=== PATIENT | female | born 1980 | race Caucasian/White ===

== ENCOUNTER 2021-11-16 09:51 | Emergency (ER) | payer OTHER, SELFPAY ==
[2021-11-16 10:15] VITALS: BP 99/53; PULSE 70; RESP 16; TEMP 36.1; O2SAT 99; BMI 25.1
--- NOTE | 2021-11-16 10:27 | ED_ITS ---
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 No fevers, chills. Patient reports she uses clean needles but does lick the needles prior to injection. She is on methadone. Related Data Previous Rx's Medication Instructions Recorded cephalexin 500 mg capsule 500 mg PO TID #21 cap 11/16/21 doxycycline monohydrate 100 mg 100 mg PO BID #20 tab 11/16/21 tablet ibuprofen 800 mg tablet 800 mg PO Q8H PRN #20 tab 11/16/21 Allergies Allergy/AdvReac Type Severity Reaction Status Date / Time No Known Allergies Allergy Unverified 06/21/20 15:38 Review of Systems Review of Systems: Yes all other systems are reviewed and are negative Constitutional: Constitutional: Reports no additional constitutional complaints, Denies body ache(s), Denies chills, Denies fever(s), Denies headache(s) and Denies weakness Eyes: Eyes: Reports no additional eye complaints and Denies change in vision ENT: Reports system reviewed and no additional complaints, except as documented, Denies dizziness, Denies headache(s), Denies nasal congestion, Denie s nasal discharge and Denies neck pain Cardiovascular: Cardiovascular: Reports no additional cardiovascular complaints, Denies chest pain, Denies leg edema and Denies dyspnea Respiratory: Respiratory: Reports no additional respiratory complaints, Denies cough and Denies dyspnea Gastrointestinal: Gastrointestinal: Reports no additional gastrointestinal complaints, Denies abdominal pain, Denies diarrhea, Denies nausea and Denies vomiting Genitourinary: Genitourinary: Reports no additional female genitourinary complaints and Denies urinary incontinence Musculoskeletal: Musculoskeletal: Reports no additional musculoskeletal co mplaints, Denies back pain, Denies arthralgias, Denies joint swelling, Denies neck pain, Denies numbness and Denies tingling Integumentary/Breasts: Skin/Breast: Reports system reviewed and no additional complaints, except as docu, Reports erythema and Denies rash Neurologic: Reports system reviewed and no additional complaints, except as documented, Denies Abnormal speech present, Denies dizziness, Denies headach e(s), Denies numbness, Denies tingling and Denies weakness PMFSH Past Medical History Attestation statement: The following information was validated with the patient. Source: old records reviewed and nursing notes reviewed Social History Social History Advance Directives: No Advance Directives Information Provided: Yes Patient : No Physical Exam Vital Signs: Vital Signs: Last Vital Signs Temp 97 F 11/16/21 10:15 Pulse 70 11/16/21 10:15 Resp 16 11/16/21 10:15 BP 99/53 L 11/16/21 10:15 Pulse Ox 99 11/16/21 10:15 BMI result Body Mass Index 25.1 Const: General: cooperative, healthy appearing, comfortable and no acute distress Orientation/consciousness: patient oriented x3 Limitations: no limitations HENMT: Head: Yes normal to inspection Ears: hearing grossly normal bilaterally General nose exam: Normal external nose present Face and sinus: Yes normal facial exam Mouth: Normal oral and palatal mucosa present Throat: Yes posterior oropharynx normal Eyes: General: appearance normal, both eyes and all related structures Pupils: Equal, round and reactive pupils present Neck: Neck: Yes normal visual inspection Chest: Chest palpation & inspection: normal inspection of the chest Resp: Effort & Inspection: normal respiratory effort Auscultation: clear to auscultation bilaterally Cardio: Rate: regular rate Rhythm: regular rhythm Peripheral pulses: Per ipheral pulses 2+ throughout GI: Inspection: Yes normal to inspection Palpation (GI): Soft to palpation and nontender Auscultation: normal bowel sounds Back/Spine/Pelvis: Thoracic/Lumbar Spine: thoracic and lumbar spine normal to inspection Skin: General skin exam: no rashes or lesions noted Neuro: General: patient oriented x3, no focal motor deficits and normal sensation to monofilament Cranial nerves: Yes Equal, round and reactive pupils present Cognition (Neuro): normal cognition Speech: No Abnormal speech present Gait exam (Neuro): Normal gait present Motor exam (neuro): 5/5 motor strength present throughout Extrem: General: Yes normal to inspection Elbow/forearm/wrist images: 1. Circular area of redness, warmth and induration with no fluctuance. NO flucutance Course Course Course Narrative: 41 yo female here with area to the right thigh of redness, warmth and pain x 1 week after injecting cocaine/heroin to the site. No drainable fluid collection. Does appear to have cellulitis which is not circumferential. No fevers, chills, vomiting, systemic symptoms. Area was marked with skin marker. Will start patient on antibiotics, recommend warm compresses and to return for any fever, vomiting, malaise, extension of cellulitis. Comfortable with plan for discharge home. . MDM - Wound/Laceration Medical Records Attestation: I reviewed the patient's medical records. Lab Data Attestation: I reviewed the patient's lab results. Discharge Plan Discharge Clinical Impression: Cellulitis Patient Disposition: Home, Self-Care Instructions: Cellulitis (DC), Warm Compress or Soak (ED) Additional Instructions: Return for fever, vomiting, malaise, increasing redness/warmth or fluctuance of the wound Prescriptions: New doxycycline monohydrate 100 mg tablet 100 mg PO BID Qty: 20 0RF cephalexin 500 mg capsule 500 mg PO TID Qty: 21 0RF ibuprofen 800 mg tablet 800 mg PO Q8H PRN (Reason: pain) Qty: 20 0RF Referrals: Physician,Unknown J [Primary Care Provider] - 2 days Stand Alone Forms: Work/School Release Interventions: ED Discharge Assessment Last Done: 11/16/21 11:02 Discharge Date/Time: 11/16/21 11:02
== END 2021-11-16 11:02 | disposition home or self-care (01) ==
PROVIDERS: Emergency Provider Emergency Medicine Emergency Medical Services
DX: L03.115 Cellulitis of right lower limb (principal); M79.651 Pain in right thigh; F11.20 Opioid dependence, uncomplicated; F19.90 Other psychoactive substance use, unspecified, uncomplicated
CPT/HCPCS: 99283

== ENCOUNTER 2021-11-25 07:24 | Emergency (ER) | payer OTHER, SELFPAY ==
[2021-11-25 08:13] VITALS: BP 130/91; PULSE 72; RESP 18; TEMP 36.4; O2SAT 97; BMI 27.6
--- NOTE | 2021-11-25 08:20 | ED.WOUNDLAC ---
HPI - Wound/Laceration General Chief Complaint: Wound/Laceration Stated Complaint: cellulitis leg pain Time Seen by Provider: 11/25/21 08:20 Source: patient Mode of arrival: ambulatory Limitations: no limitations History of Present Illness HPI narrative: seen on 11/16 started on doxy and cephalexin for R leg cellulitis doing well other than has abscess in the area that is not resolving, no fevers Onset (ago): week(s) (2) Extremity Location: right: thigh Place: home Patient tetanus UTD: Yes Context: other (injected into r thigh ) Associated symptoms: pain Treatments prior to arrival: other (completed course of cephalexin/doxycycline) Related Data Previous Rx's Medication Instructions Recorded cephalexin 500 mg capsule 500 mg PO TID #21 cap 11/16/21 doxycycline monohydrate 100 mg 100 mg PO BID #20 tab 11/16/21 tablet ibuprofen 800 mg tablet 800 mg PO Q8H PRN #20 tab 11/16/21 doxycycline monohydrate 100 mg 100 mg PO BID 7 Days #14 tab 11/25/21 tablet famotidine 20 mg tablet (Pepcid) 20 mg PO DAILY PRN #30 tab 11/25/21 ondansetron 4 mg disintegrating 4 mg PO Q8H PRN #20 tab 11/25/21 tablet Allergies Allergy/AdvReac Type Severity Reaction Status Date / Time No Known Allergies Allergy Unverified 06/21/20 15:38 Review of Systems Review of Systems: Constitutional : No Fever, No Chills ENT/Mouth : No sore throat, No Rhinorrhea Eyes: No Eye Pain, No Swelling, No Redness Cardiovascular : No Chest Pain, No SOB Respiratory : No Cough, No Sputum Gastrointestinal : No Nausea, No Vomiting, No Diarrhea, No abdominal Pain Genitourinary : No Dysuria, No Hematuria Musculoskeletal : No joint pain, No Myalgias, No Joint Swelling Skin : pos Skin Lesions, positive skin rash Neuro : No Weakness, No Numbness, No Headache Psych : No Anxiety, No Depression Heme/Lymph: No Bruising, No Bleeding,No Lymphadenopathy Endocrine : No Polyuria, No Polydipsia All other systems reviewed and are negative [facility] Past Medical History Attestation statement: The following information was validated with the patient. Medical History Cellulitis Social History Social History (Updated 11/25/21 @ 08:36 by Melba Singh DO) Patient Tobacco Use Status: Tobacco use Unknown Substance Use Type: Heroin Advance Directives: No Advance Directives Information Provided: No Patient : No Physical Exam Vital Signs: Vital Signs: Last Vital Signs Temp 97.6 F 11/25/21 08:13 Pulse 72 11/25/21 08:13 Resp 18 11/25/21 08:13 BP 130/91 H 11/25/21 08:13 Pulse Ox 97 11/25/21 08:13 BMI result Body Mass Index 27.6 Appearance: Alert. Oriented X3. No acute distress. Eyes: Pupils equal, round and reactive to light. ENT: Pharynx normal. Neck: Normal inspection. Neck supple. CVS: Normal heart rate and rhythm. Pulses normal. Respiratory: No respiratory distress. Breath sounds normal. Abdomen: Soft and nontender. Skin: Skin warm and dry. Normal skin color. Normal skin turgor. Extremities: No lower extremity edema. R inner thigh - 4cm abscess noted to a point very mild surrounding erythema no lymphangitis no edema or swelling distally Neuro: Oriented X 3. No motor deficit. No sensory deficit. Course Course Course Narrative: did well post procedure - I/D performed by Lanie BOWEN at bedside MDM - Wound/Laceration MDM Narrative Medical decision making narrative: 41 yo female with R thigh abscess recent treatment for cellulitis did well but now needs I/D suspect she will do well after expression of purulence. No systemic symptoms no signs of deeper space infection. Leg is not swollen. I/D planned then possibly doxycycline for additional 7 days until fully cleared Procedures Abscess I/D Site: lower extremity Side (if applicable): right Local Anesthetic: lidocaine 1% and other anesthetic (LMX) Amount of anesthesia used (mL): 5 Technique: incised with blade Amount of fluid expressed (mL): 10 Sent for culture/gram staining?: No Irrigation: Yes Packing used?: iodoform Discharge Plan Discharge Clinical Impression: Abscess Patient Disposition: Home, Self-Care Instructions: Abscess (ED), Incision and Drainage (ED) Additional Instructions: follow up in ED 2 days for wound check okay to shower - keep clean covered and dry - in shower please try to keep as dry as possible and cover with dressing monitor for fevers, worsening redness, or any other concerns pepcid and zofran are if the doxycycline cause abdominal discomfort Prescriptions: New famotidine [Pepcid] 20 mg tablet 20 mg PO DAILY PRN (Reason: abdominal discomfort) Qty: 30 0RF doxycycline monohydrate 100 mg tablet 100 mg PO BID 7 Days Qty: 14 0RF ondansetron 4 mg tablet,disintegrating 4 mg PO Q8H PRN (Reason: nausea and vomiting) Qty: 20 0RF No Action doxycycline monohydrate 100 mg tablet 100 mg PO BID Qty: 20 0RF cephalexin 500 mg capsule 500 mg PO TID Qty: 21 0RF ibuprofen 800 mg tablet 800 mg PO Q8H PRN (Reason: pain) Qty: 20 0RF Stand Alone Forms: Work/School Release
[2021-11-25] MEDS: Lidocaine HCl 1 % 20 ML VIAL SUBCUT (08:37)
[2021-11-25] MEDS: Lidocaine 4 % Cream KIT 1 APPL TOPICAL (08:37)
== END 2021-11-25 09:50 | disposition home or self-care (01) ==
PROVIDERS: Emergency Provider Emergency Medicine; PCP Nurse Practitioner Family
DX: L02.415 Cutaneous abscess of right lower limb (principal); L03.115 Cellulitis of right lower limb; F11.10 Opioid abuse, uncomplicated; Z79.899 Other long term (current) drug therapy
CPT/HCPCS: 10060; 99283; 99284

== ENCOUNTER 2021-11-27 09:02 | Emergency (ER) | payer OTHER, SELFPAY ==
[2021-11-27 09:10] VITALS: BP 132/81; PULSE 71; RESP 17; TEMP 36.1; O2SAT 98; BMI 27.1
--- NOTE | 2021-11-27 09:49 | ED_ITS ---
HPI - Recheck/Abnormal Lab/Rx General Chief Complaint: Wound/Laceration Stated Complaint: Wound check Time Seen by Provider: 11/27/21 09:35 Source: patient Mode of arrival: ambulatory Limitations: no limitations History of Present Illness HPI narrative: 41-year-old female presenting to the ED for a wound check after she was seen here on 11/16/2021 for cellulitis sent home on doxycycline and Keflex and reports she did not start antibiotics until 2 days later then was seen here again on 11/25/2021 for worsening swelling/pain and purulent drainage and at that point there was an abscess that she needed I&D then she was placed on another 7 days of doxycycline which she reports is taking as prescribed. At this time she reports that her symptoms have improved and she believes that the redness and swelling and pain is improving not worsening from her being on the antibiotics. She denies any fevers, chills or any worsening symptoms. MD complaint: wound re-check Initial visit for: cellulitis and abscess Returns today for: wound recheck and cellulitis follow-up Symptoms since prior visit: improved (For patient) Context: planned re-check Associated symptoms: none Treatments prior to arrival: other (See above) Related Data Previous Rx's Medication Instructions Recorded cephalexin 500 mg capsule 500 mg PO TID #21 cap 11/16/21 doxycycline monohydrate 100 mg 100 mg PO BID #20 tab 11/16/21 tablet ibuprofen 800 mg tablet 800 mg PO Q8H PRN #20 tab 11/16/21 doxycycline monohydrate 100 mg 100 mg PO BID 7 Days #14 tab 11/25/21 tablet famotidine 20 mg tablet (Pepcid) 20 mg PO DAILY PRN #30 tab 11/25/21 ondansetron 4 mg disintegrating 4 mg PO Q8H PRN #20 tab 11/25/21 tablet acetaminophen 500 mg tablet 1,000 mg PO QID PRN #14 tab 11/27/21 (Tylenol Extra Strength) cephalexin 500 mg capsule 500 mg PO Q6H 10 Days #40 cap 11/27/21 fluconazole 150 mg tablet 150 mg PO Q3D #2 tab 11/27/21 (Diflucan) ibuprofen 800 mg tablet 800 mg PO Q8H PRN #14 tab 11/27/21 sulfamethoxazole 800 1 tab PO BID 10 Days #20 tab 11/27/21 mg-trimethoprim 160 mg tablet (Bactrim DS) Allergies Allergy/AdvReac Type Severity Reaction Status Date / Time No Known Allergies Allergy Verified 11/27/21 09:12 Review of Systems Review of Systems: Constitutional : Denies history of same, Denies any other sites involved, Denies IV drug use, Denies history of MRSA, Denies swollen glands, Denies injury, Denies Fever, Denies Chills, + Sig Pain, Denies Systemic symptoms Cardiovascular : No Chest Pain, No SOB Respiratory : No Dyspnea Gastrointestinal : No abdominal pain Musculoskeletal : No Joint Swelling Skin : + wound with surrounding erythema, No skin abscess, No Foreign bodies, Denies bites, Denies discharge, Neuro : No Weakness, No Numbness/tingling Psych : No SI/HI/thoughts of self injury Yes all other systems are reviewed and are negative [facility] Past Medical History Attestation statement: The following information was validated with the patient. Medical History Cellulitis Social History Social History Patient Tobacco Use Status: Tobacco use Unknown Substance Use Type: Heroin Advance Directives: No Advance Directives Information Provided: No Patient : No Physical Exam Vital Signs: Vital Signs: Last Vital Signs Temp 97.0 F 11/27/21 09:10 Pulse 71 11/27/21 09:10 Resp 17 11/27/21 09:10 BP 132/81 11/27/21 09:10 Pulse Ox 98 11/27/21 09:10 BMI result Body Mass Index 27.1 vital signs have been reviewed as normal and appeared to be correct. Blood pressure normal Heart rate normal. Respiration rate normal. Temperature normal. Oxygen saturation normal. Appearance: Alert. Oriented X3. No acute distress. Head: Normal external exam. Normocephalic. Atraumatic. Eyes: PERRLA. EOMI. Conjunctiva and sclera normal. Eyelids normal. ENT: Pharynx normal. Uvula midline. Moist mucous membranes. Neck: Normal inspection. Neck supple. FROM. CVS: Normal heart rate and rhythm. Respiratory: No respiratory distress. Painless inspiration. Skin: Skin warm and dry. Normal skin color. Normal skin turgor. To the right inner thigh patient has a wound with moderate tenderness to palpation and surrounding erythema although patient reports it is improved when compared to her last 2 visits here. No streaking noted on my exam. No additional rashes/lesions/lacerations noted. Extremities: No lower extremity edema. No calf tenderness is noted. Otherwise all other extremities exhibit normal range of motion. Extremities nontender. Neuro: Oriented X 3. No motor deficit. No sensory deficit. Reflexes normal. Normal steady gait. No focal neuro deficits noted. Vascular: + radial pulses/+ 2 distal pedal pulses/+2 dorsalis pedis b/l. Normal cap refill. No cyanosis noted to upper extremity nails and lower extremity toes nails. Course Course Course Narrative: 41-year-old female who is currently on methadone presenting to the ED with request for wound check after she was seen here twice on 11/16/2021 sent home with doxycycline and Keflex prescribed although started 2 days after she was prescribed antibiotics. Then she was seen here on 11/25/2021 because she developed an abscess and she had incision and drainage with moderate purulent drainage which she tolerated procedure well. She was given another 7 day course of doxycycline. Today she reports her symptoms improve although on my exam she has significant pain and moderate surrounding cellulitis therefore I offered labs and IV antibiotics and admission although patient does not want to stay today she showed me pictures and she reports that she believes it is much better. Therefore I discussed this with Dr. Lara. I explained to the patient that she should stay for labs and IV antibiotics and admission although she is very adamant she wants to be discharged. Therefore at this time I explained to her that we will start her on another course of Keflex that she will start today and to finish her doxycycline prescription then once she is finished with the doxycycline prescription she will finish the Bactrim. And I explained to her that she needs to return if any new or worsening symptoms and follow-up with the wound clinic as well. Will also give her Diflucan to prevent yeast infection. Patient understands that if she returns for a 4th time she will need to plan for IV antibiotics and admission. MDM - Recheck/Abnormal Lab/Rx Medical Records Attestation: I reviewed the patient's medical records. Discharge Plan Discharge Clinical Impression: Cellulitis of right thigh Patient Disposition: Home, Self-Care Instructions: Cellulitis (ED) Additional Instructions: You are off for admission today for IV antibiotics although you reported that you believe your symptoms are improving therefore at this time want her to f inish her doxycycline prescription. And I want you to start Keflex today. Once he finished the doxycycline completely I want to start Bactrim for 10 days. Return if any new or worsening symptoms and I explained today if you do return for a 4th time at that point you should think about admission okay return if any new or worsening symptoms. Follow up with the wound clinic and your primary care provider. Prescriptions: New cephalexin 500 mg capsule 500 mg PO Q6H 10 Days Qty: 40 0RF sulfamethoxazole-trimethoprim [Bactrim DS] 800-160 mg tablet 1 tab PO BID 10 Days Qty: 20 0RF acetaminophen [Tylenol Extra Strength] 500 mg tablet 1,000 mg PO QID PRN (Reason: fever or pain) Qty: 14 0RF ibuprofen 800 mg tablet 800 mg PO Q8H PRN (Reason: pain) Qty: 14 0RF fluconazole [Diflucan] 150 mg tablet 150 mg PO Q3D Qty: 2 0RF No Action doxycycline monohydrate 100 mg tablet 100 mg PO BID Qty: 20 0RF cephalexin 500 mg capsule 500 mg PO TID Qty: 21 0RF ibuprofen 800 mg tablet 800 mg PO Q8H PRN (Reason: pain) Qty: 20 0RF famotidine [Pepcid] 20 mg tablet 20 mg PO DAILY PRN (Reason: abdominal discomfort) Qty: 30 0RF doxycycline monohydrate 100 mg tablet 100 mg PO BID 7 Days Qty: 14 0RF ondansetron 4 mg tablet,disintegrating 4 mg PO Q8H PRN (Reason: nausea and vomiting) Qty: 20 0RF Referrals: [facility] – [place] Wound Care Management [Provider Group] - 2 days Stand Alone Forms: Work/School Release Print Language: Citizen Of [place]
[2021-11-27] MEDS: Ibuprofen 800 MG TABLET PO (09:55)
[2021-11-27] MEDS: cephALEXin 500 MG CAPSULE PO (09:55)
[2021-11-27] MEDS: Acetaminophen 325 MG TABLET 975 MG PO (09:55)
== END 2021-11-27 10:15 | disposition home or self-care (01) ==
PROVIDERS: Emergency Provider Emergency Medicine
DX: L03.115 Cellulitis of right lower limb (principal); F11.20 Opioid dependence, uncomplicated
CPT/HCPCS: 99283

== ENCOUNTER → 2021-12-26 10:30 | Outpatient (REF) | payer OTHER, SELFPAY ==
--- NOTE | 2021-12-26 10:37 | ECG_ITS ---
Test Reason : METHADONE QT PROLONGATION Blood Pressure : / mmHG Vent. Rate : 075 BPM Atrial Rate : 075 BPM P-R Int : 152 ms QRS Dur : 084 ms QT Int : 406 ms P-R-T Axes : 054 055 039 degrees QTc Int : 453 ms Normal sinus rhythm Normal ECG No previous ECGs available Referred By: Araseli Smith Electronically Signed By:ANTONY BURNETT MD
== END ==
LOC: HO.CARD 10:30
PROVIDERS: Visit Provider Family Medicine
DX: Z79.899 Other long term (current) drug therapy (principal)
CPT/HCPCS: 93005

== ENCOUNTER 2022-01-20 08:10 | Emergency (ER) | payer OTHER, SELFPAY ==
--- NOTE | ~2022-01-20 | XR_ITS ---
EXAMINATION: XR THORACIC SPINE CLINICAL INFORMATION: Status post fall. Pain mid thoracic spine. COMPARISON: None TECHNIQUE: 3 views of the thoracic spine were obtained. FINDINGS: There is normal thoracic kyphosis. The vertebral heights and alignment is normal. There is mild levoscoliosis. There is no visible acute fracture, dislocation or lytic process seen. The paravertebral soft tissues are normal. XR/XR thoracic spine 3V IMPRESSION: Mild levoscoliosis of dorsal spine. No visible acute fracture or dislocation seen.
[2022-01-20 08:29] VITALS: BP 111/68; PULSE 71; RESP 18; TEMP 36.3; O2SAT 96; BMI 27.6
--- NOTE | 2022-01-20 10:18 | ED_ITS ---
HPI - Fall General Chief Complaint: Fall Stated Complaint: Fall at work Time Seen by Provider: 01/20/22 09:11 Source: patient Mode of arrival: ambulatory Limitations: no limitations History of Present Illness HPI Narrative: 41-year-old female presenting to the ED with complaints of mid back pain after she had a mechanical fall at work on were there was a lot a water and she was walking fast trying to get things done and she slipped and fell landing on her back. She denies head injury loss of consciousness. She denies being on any blood thinners. She denies any neck pain or lower back pain. She denies any extremity pain or joint pain or any joint swelling. She denies any paresthesias or any other symptoms complaints or concerns at this time. complaint: fall Onset (ago): day(s) (4) Fall from: standing Place fall occurred: work Loss of consciousness: none Prolonged down time: no Symptoms prior to fall: none Context: tripped/slipped Location of injury: back Severity: mild Quality: aching Associated symptoms (after fall): denies Related Data Previous Rx's Medication Instructions Recorded cephalexin 500 mg capsule 500 mg PO TID #21 cap 11/16/21 doxycycline monohydrate 100 mg 100 mg PO BID #20 tab 11/16/21 tablet ibuprofen 800 mg tablet 800 mg PO Q8H PRN #20 tab 11/16/21 doxycycline monohydrate 100 mg 100 mg PO BID 7 Days #14 tab 11/25/21 tablet famotidine 20 mg tablet (Pepcid) 20 mg PO DAILY PRN #30 tab 11/25/21 ondansetron 4 mg disintegrating 4 mg PO Q8H PRN #20 tab 11/25/21 tablet acetaminophen 500 mg tablet 1,000 mg PO QID PRN #14 tab 11/27/21 (Tylenol Extra Strength) cephalexin 500 mg capsule 500 mg PO Q6H 10 Days #40 cap 11/27/21 fluconazole 150 mg tablet 150 mg PO Q3D #2 tab 11/27/21 (Diflucan) ibuprofen 800 mg tablet 800 mg PO Q8H PRN #14 tab 11/27/21 sulfamethoxazole 800 1 tab PO BID 10 Days #20 tab 11/27/21 mg-trimethoprim 160 mg tablet (Bactrim DS) acetaminophen 500 mg tablet 1,000 mg PO QID PRN #14 tab 01/20/22 (Tylenol Extra Strength) cyclobenzaprine 10 mg tablet 10 mg PO Q8H PRN #14 tab 01/20/22 Allergies Allergy/AdvReac Type Severity Reaction Status Date / Time No Known Allergies Allergy Verified 01/20/22 08:29 Review of Systems Review of Systems: Constitutional : No trauma, No Weight loss, No Fever, No Chills, ENT/Mouth : No Hearing loss, No Ear Pain, No Nasal Congestion, No Sinus Pain, No Hoarseness, No sore throat, No Rhinorrhea, No Swallowing Difficulty Cardiovascular : No Chest Pain, No SOB Respiratory : No Cough, No Dyspnea Gastrointestinal : No Nausea, No Vomiting, No Diarrhea, No abdominal Pain, No Hematochezia, No Melena Genitourinary : No Dysuria, No Urinary Frequency, No Hematuria, No Urinary or Bowel Incontinence/retention Musculoskeletal : + Back pain, No neck pain, No joint stiffness, No joint swelling Skin : No Skin Lesions, No rash or signs of infection Neuro : No Weakness, No radiation, No Numbness, No Paresthesias, No headache, no loss of bowel or bladder incontinence, no saddle anesthesia, Focal weakness, No radiation Denies history of IV drug usage. Yes all other systems are reviewed and are negative [facility] Past Medical History Attestation statement: The following information was validated with the patient. Medical History Cellulitis Substance abuse in remission Social History Social History Patient Tobacco Use Status: Tobacco use Unknown Substance Use Type: Heroin Advance Directives: No Advance Directives Information Provided: No Patient : No Physical Exam Vital Signs: Vital Signs: Last Vital Signs Temp 97.4 F 01/20/22 08:29 Pulse 71 01/20/22 08:29 Resp 18 01/20/22 08:29 BP 111/68 01/20/22 08:29 Pulse Ox 96 01/20/22 08:29 BMI result Body Mass Index 27.6 vital signs have been reviewed as normal and appeared to be correct. Blood pressure normal. Heart rate normal. Respiration rate normal. Temperature normal. Oxygen saturation normal. Appearance: Alert. Oriented X3. No acute distress. Head: Normal external exam. Normocephalic. Atraumatic. No Dominique signs noted. No raccoon eyes noted Eyes: PERRLA. EOMI. Conjunctiva and sclera normal. Eyelids normal. ENT: EAC normal. TM's Normal. Pharynx normal. Uvula midline. Moist mucous me mbranes. No trismus noted. No drooling noted. No muffled voice noted. Neck: Normal inspection. Neck supple. FROM. No adenopathy. Thyroid Normal. No meningeal signs. No neck mass noted. CVS: Normal heart rate and rhythm. Heart sound normal. No murmurs noted. Pulses normal throughout. Respiratory: No respiratory distress. Painless inspiration. Breath sounds normal. No wheezes/rales/rhonchi noted. Chest nontender. No accessory muscle usage noted or decreased air movement noted. Abdomen: Soft and nontender. Bowel sounds normal in all 4 quadrants. No distention noted. No organomegaly noted. No visible injury noted. Back: No CVA tenderness. Full range of motion noted. No obvious deformities, or edema. Mild para-spinal muscular tenderness at thoracic and midthoracic region. No lumbar or coccyx pain noted. Full ROM in back and lower extremities. 5/5 strength hip extension/flexion, abduction, adduction. Straight leg raise test negative on right; Straight leg raise test negative on left; Reflexes normal ankle and knee bilaterally; EHL motor strength normal bilaterally. No rashes/lesion/induration/fluctuance or signs infection noted. No signs of trauma. No bruising noted. No abrasions/lacerations noted. Skin: Skin warm and dry. Normal skin color. Normal skin turgor. No rashes/lesions/lacerations noted. Extremities: No lower extremity edema. Extremities exhibit normal range of motion. Extremities nontender. Neuro: Oriented X 3. No motor deficit. No sensory deficit. Reflexes normal. Patient has a normal steady gait. Course Course Course Narrative: Pt c likely muscular pain, but could be herniated disc. Neuro exam shows no deficits. Not c/w AAA/epidural abscess/dissection.No high risk Hx (Incont, fever, immunosupp, recent surgery/LP, coag, signif trauma, wt loss, puls mass, hx/o Ca, TB, or IVDU) to warrant MRI/CT today. Not c/w Pyelo/UTI/kidney stone. Not cauda equina syndrome. Although I did obtain an x-ray due to a mechanical fall at work and was negative not consistent with a fracture. Will DC home with symptomatic treatment instructions return if any new or worsening symptoms. Patient understands and agrees with this plan. MDM - Fall Medical Records Attestation: I reviewed the patient's medical records. Imaging Data Thoracic spine x-ray: Attestation: I personally reviewed and interpreted this imaging study as follows: Radiologist's impression: FINDINGS: There is normal thoracic kyphosis. The vertebral heights and alignment is normal. There is mild levoscoliosis. There is no visible acute fracture, dislocation or lytic process seen. The paravertebral soft tissues are normal. XR/XR thoracic spine 3V IMPRESSION: Mild levoscoliosis of dorsal spine. No visible acute fracture or dislocation seen. Discharge Plan Discharge Clinical Impression: Fall, Strain of thoracic region, Work related injury Patient Disposition: Home, Self-Care Prescriptions: New acetaminophen [Tylenol Extra Strength] 500 mg tablet 1,000 mg PO QID PRN (Reason: fever or pain) Qty: 14 0RF cyclobenzaprine 10 mg tablet 10 mg PO Q8H PRN (Reason: Muscle spasm) Qty: 14 0RF No Action doxycycline monohydrate 100 mg tablet 100 mg PO BID Qty: 20 0RF cephalexin 500 mg capsule 500 mg PO TID Qty: 21 0RF ibuprofen 800 mg tablet 800 mg PO Q8H PRN (Reason: pain) Qty: 20 0RF famotidine [Pepcid] 20 mg tablet 20 mg PO DAILY PRN (Reason: abdominal discomfort) Qty: 30 0RF doxycycline monohydrate 100 mg tablet 100 mg PO BID 7 Days Qty: 14 0RF ondansetron 4 mg tablet,disintegrating 4 mg PO Q8H PRN (Reason: nausea and vomiting) Qty: 20 0RF cephalexin 500 mg capsule 500 mg PO Q6H 10 Days Qty: 40 0RF sulfamethoxazole-trimethoprim [Bactrim DS] 800-160 mg tablet 1 tab PO BID 10 Days Qty: 20 0RF acetaminophen [Tylenol Extra Strength] 500 mg tablet 1,000 mg PO QID PRN (Reason: fever or pain) Qty: 14 0RF ibuprofen 800 mg tablet 800 mg PO Q8H PRN (Reason: pain) Qty: 14 0RF fluconazole [Diflucan] 150 mg tablet 150 mg PO Q3D Qty: 2 0RF Referrals: Physician,None [Primary Care Provider] - (your pcp) Stand Alone Forms: Work/School Release Print Language: [place]
== END 2022-01-20 10:46 | disposition home or self-care (01) ==
PROVIDERS: Emergency Provider Emergency Medicine
DX: S29.012A Strain of muscle and tendon of back wall of thorax, initial encounter (principal); W01.0XXA Fall on same level from slipping, tripping and stumbling without subsequent striking against object, initial encounter; Y93.9 Activity, unspecified; Y92.9 Unspecified place or not applicable; Y99.0 Civilian activity done for income or pay; Z79.899 Other long term (current) drug therapy
CPT/HCPCS: 72072; 99283

== ENCOUNTER 2022-11-27 10:54 | Emergency (ER) | payer OTHER, SELFPAY ==
--- NOTE | 2022-11-27 11:36 | ED_ITS ---
HPI - General Adult General Chief complaint: General Medical <Tressa Nguyen CNP - Last Filed: 11/27/22 11:44> Stated complaint: medication <Tressa Nguyen CNP - Last Filed: 11/27/22 11:44> Time Seen by Provider: 11/27/22 11:55 <Tressa Nguyen CNP - Last Filed: 11/27/22 11:44> Source: patient and old records reviewed <JESSI Harvey - Last Filed: 11/27/22 12:31> Mode of arrival: ambulatory <JESSI Harvey - Last Filed: 11/27/22 12:31> Limitations: no limitations <JESSI Harvey - Last Filed: 11/27/22 12:31> History of Present Illness HPI narrative: 42-year-old female who presents to the emergency department for assistance with methadone dosing. She reports that she recently moved from [place], she has a last dose letter for methdone 160mg; last seen in clinic there 11/21 and received 3 dose bottles, states last dose taken 11/24. Needs dosing verified from ED before can receive treatment at [facility]; she was supposed to be seen at clinic today for intake, but apparently there was no doctor there today by her report. Denies any recreational drug usage since last dosing. <JESSI Harvey - Last Filed: 11/27/22 12:31> MD complaint: methadone dosing <JESSI Harvey - Last Filed: 11/27/22 12:31> Onset (ago): day(s) (3) <JESSI Harvey - Last Filed: 11/27/22 12:31> Relieving factors: none <JESSI Harvey - Last Filed: 11/27/22 12:31> Exacerbating factors: none <JESSI Harvey Last Filed: 11/27/22 12:31> Associated symptoms: denies other symptoms <JESSI Harvey - Last Filed: 11/27/22 12:31> Treatments prior to arrival: none <JESSI Harvey Last Filed: 11/27/22 12:31> Related Data Home medications: Previous Rx's Medication Instructions Recorded cephalexin 500 mg capsule 500 mg PO TID #21 caps 11/16/21 doxycycline monohydrate 100 mg 100 mg PO BID #20 tabs 11/16/21 tablet ibuprofen 800 mg tablet 800 mg PO Q8H PRN pain #20 tabs 11/16/21 doxycycline monohydrate 100 mg 100 mg PO BID 7 days #14 tabs 11/25/21 tablet famotidine 20 mg tablet (Pepcid) 20 mg PO DAILY PRN abdominal 11/25/21 discomfort #30 tabs ondansetron 4 mg disintegrating 4 mg PO Q8H PRN nausea and 11/25/21 tablet vomiting #20 tabs acetaminophen 500 mg tablet 1,000 mg PO QID PRN fever or pain 11/27/21 (Tylenol Extra Strength) #14 tabs cephalexin 500 mg capsule 500 mg PO Q6H cellulitis 10 days 11/27/21 #40 caps fluconazole 150 mg tablet 150 mg PO Q3D 2 doses #2 tabs 11/27/21 (Diflucan) ibuprofen 800 mg tablet 800 mg PO Q8H PRN pain #14 tabs 11/27/21 sulfamethoxazole 800 1 tab PO BID 10 days #20 tabs 11/27/21 mg-trimethoprim 160 mg tablet (Bactrim DS) acetaminophen 500 mg tablet 1,000 mg PO QID PRN fever or pain 01/20/22 (Tylenol Extra Strength) #14 tabs cyclobenzaprine 10 mg tablet 10 mg PO Q8H PRN Muscle spasm #14 01/20/22 tabs <Tressa Nguyen CNP - Last Filed: 11/27/22 11:44> Allergies/adverse reactions: Allergies Allergy/AdvReac Type Severity Reaction Status Date / Time No Known Allergies Allergy Verified 01/20/22 08:29 <Tressa Nguyen CNP - Last Filed: 11/27/22 11:44> Review of Systems Review of Systems: Yes all other systems are reviewed and are negative <JSESI Harvey - Last Filed: 11/27/22 12:31> [facility] Past Medical History Medical History: Medical History Cellulitis Substance abuse in remission <Tressa Nguyen CNP - Last Filed: 11/27/22 11:44> Social History Social History: Social History Patient Tobacco Use Status: Tobacco use Unknown Substance Use Type: Heroin Advance Directives: No <Tressa Nguyen CNP - Last Filed: 11/27/22 11:44> Physical Exam ED Vital Signs: Vital Signs - 24 hr 11/27/22 11:42 Temperature 97.5 F Pulse Rate 92 Respiratory Rate 16 Blood Pressure 146/93 H Pulse Oximetry 97 Oxygen Delivery Method Room Air BMI result Body Mass Index 24.4 <Tressa Nguyen CNP - Last Filed: 11/27/22 11:44> Vital Signs - 24 hr 11/27/22 11:42 Temperature 97.5 F Pulse Rate 92 Respiratory Rate 16 Blood Pressure 146/93 H Pulse Oximetry 97 Oxygen Delivery Method Room Air BMI result Body Mass Index 24.4 <JESSI Harvey - Last Filed: 11/27/22 12:31> Appearance: Alert. Oriented X3. No acute distress. HEENT: normal inspection CVS: Normal heart rate and rhythm. Pulses normal. Respiratory: No respiratory distress. Skin: Skin warm and dry. Normal skin color. Normal skin turgor. No rashes. Extremities: normal inspection, no track multani Neuro: Oriented X 3. No motor deficit. No sensory deficit. <JESSI Harvey - Last Filed: 11/27/22 12:31> Course Course Course Narrative: This is an RME: Additional HPI, ROS, PE not included below will be deferred to primary provider. Patient is a 42-year-old female who presents to the emergency department for assistance with methadone dosing. She reports that she recently moved from [place], she has a last dose letter for methdone 160mg; last seen in clinic there 11/21 and received 3 dose bottles, states last dose taken 11/24. Needs dosing verified from ED before can receive treatment at [facility]; she was supposed to be seen at clinic today for intake, but apparently there was no doctor there today by her report. Denies any recreatio nal drug usage since last dosing. Plan: Review last dosing letter, administer dosage here today if appropriate, provide information for clinic. <Tressa Nguyen CNP - Last Filed: 11/27/22 11:44> Additional HPI, ROS, PE not included below will be deferred to primary provider. Patient is a 42-year-old female who presents to the emergency department for assistance with methadone dosing. She reports that she recently moved from [place], she has a last dose letter for methdone 160mg; last seen in clinic there 11/21 and received 3 dose bottles, states last dose taken 11/24. Needs dosing verified from ED before can receive treatment at [facility]; she was supposed to be seen at clinic today for intake, but apparently there was no doctor there today by her report. Denies any recreational drug usage since last dosing. Plan: Review last dosing letter, administer dosage here today if appropriate, provide information for clinic. <JESSI Harvey - Last Filed: 11/27/22 12:31> Reevaluation(s) Reevaluation #1: Dosing confirmed with clinic. Em from [facility] has been in contact w/ Marci Causey NP and plan to contact [facility] for further dosing, last dose letter provided for today's dose <JESSI Harvey - Last Filed: 11/27/22 12:31> Medical Decision Making Medical Decision Making MDM Narrative: 42-year-old female with history of opioid use disorder recently moved here from [place] presenting for a dose of her methadone. She is here with last dose letter, 160 mg last received 11/24. No illicit substance use since. No evidence of withdrawal at this time. 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 given 160 mg methadone today - will refer to [facility] for further dosing tomorrow <JESSI Harvey - Last Filed: 11/27/22 12:31> Differential Diagnosis Differential Diagnoses: The differential diagnosis associated with the presentation includes <JESSI Harvey - Last Filed: 11/27/22 12:31> Opioid use disorder, drug relapse, opiate withdrawal <JESSI Harvey - Last Filed: 11/27/22 12:31> Consult Healthcare Provider Management of the patient was discussed with: Behavioral Health Provider <JESSI Harvey - Last Filed: 11/27/22 12:31> External Record Review External record reviewed: Office record <JESSI Harvey - Last Filed: 11/27/22 12:31> Chronic Conditions Patient?s care impacted by: Other (Opioid use disorder) <JESSI Harvey - Last Filed: 11/27/22 12:31> Critical Care Time Critical Care Time Critical Care Time: No <JESSI Harvey - Last Filed: 11/27/22 12:31> Discharge Plan Discharge Clinical Impression: Opioid use disorder <Tressa Nguyen CNP - Last Filed: 11/27/22 11:44> Patient Disposition: Home, Self-Care <Tressa Nguyen CNP - Last Filed: 11/27/22 11:44> Instructions: Opioid Use Disorder (ED) <Tressa Nguyen CNP - Last Filed: 11/27/22 11:44> Additional Instructions: You were given your last dose of methadone 160 mg today 11/27/22. Follow up with the [facility] for further dosing <Tressa Nguyen CNP - Last Filed: 11/27/22 11:44> Prescriptions: No Action doxycycline monohydrate 100 mg tablet 100 mg PO BID Qty: 20 0RF cephalexin 500 mg capsule 500 mg PO TID Qty: 21 0RF ibuprofen 800 mg tablet 800 mg PO Q8H PRN (Reason: pain) Qty: 20 0RF famotidine [Pepcid] 20 mg tablet 20 mg PO DAILY PRN (Reason: abdominal discomfort) Qty: 30 0RF doxycycline monohydrate 100 mg tablet 100 mg PO BID 7 Days Qty: 14 0RF ondansetron 4 mg tablet,disintegrating 4 mg PO Q8H PRN (Reason: nausea and vomiting) Qty: 20 0RF cephalexin 500 mg capsule 500 mg PO Q6H 10 Days Qty: 40 0RF sulfamethoxazole-trimethoprim [Bactrim DS] 800-160 mg tablet 1 tab PO BID 10 Days Qty: 20 0RF acetaminophen [Tylenol Extra Strength] 500 mg tablet 1,000 mg PO QID PRN (Reason: fever or pain) Qty: 14 0RF ibuprofen 800 mg tablet 800 mg PO Q8H PRN (Reason: pain) Qty: 14 0RF fluconazole [Diflucan] 150 mg tablet 150 mg PO Q3D Qty: 2 0RF acetaminophen [Tylenol Extra Strength] 500 mg tablet 1,000 mg PO QID PRN (Reason: fever or pain) Qty: 14 0RF cyclobenzaprine 10 mg tablet 10 mg PO Q8H PRN (Reason: Muscle spasm) Qty: 14 0RF <Tressa Nguyen, [employer] - Last Filed: 11/27/22 11:44>
[2022-11-27 11:42] VITALS: BP 146/93; PULSE 92; RESP 16; TEMP 36.4; O2SAT 97; BMI 24.4
[2022-11-27] MEDS: methADONE HCl 20 MG/2 ML ORAL.CONC 160 MG PO (13:23)
[2022-11-27 13:44] LABS: Amphetamine Screen Urine Not Detected (Not Detect); Barbiturates, Urine Not Detected (Not Detect); Benzodiazepines Screen Urine Not Detected (Not Detect); Cannabinoid Screen Urine Not Detected (Not Detect); Cocaine Screen Urine POSITIVE (Not Detect); Fentanyl, urine POSITIVE (Not Detect); Opiate Screen Urine POSITIVE (Not Detect); Phencyclidine Screen Urine Not Detected (Not Detect)
== END 2022-11-27 13:27 | disposition home or self-care (01) ==
PROVIDERS: Physician Assistant; Emergency Provider Emergency Medicine
DX: F11.20 Opioid dependence, uncomplicated (principal)
CPT/HCPCS: 80307; 99282; 99283

== ENCOUNTER 2022-12-16 11:58 | Emergency (ER) | payer OTHER, SELFPAY ==
--- NOTE | ~2022-12-16 | US_ITS ---
EXAMINATION: US VENOUS ULTRASOUND WITH DOPPLER LOWER EXTREMITY, RIGHT CLINICAL INFORMATION: Right posterior lateral calf pain. COMPARISON: None TECHNIQUE: Ultrasound of the deep veins is performed from the hip to the calf with compression sonography and color and pulse Doppler assessment. Spectral analysis with color-flow imaging is performed. FINDINGS: There is normal venous compression and respiratory variation and augmented flow. The visualized common femoral vein, superficial femoral vein, profunda femoral vein, popliteal vein, and the trifurcation region shows no evidence of deep venous thrombosis. Dilated superficial calf varices are seen in the lateral/mid calf measuring up to 0.5 cm. Color Doppler showed associated vascular flow. Generalized compressibility was seen. No subcutaneous edema. No right popliteal cyst. US/US venous duplex LE RT IMPRESSION: 1. No evidence for deep venous thrombosis in the visualized veins of the right lower extremity. 2. Dilated superficial calf varices in the lateral/mid calf without other significant abnormality.
[2022-12-16 12:15] VITALS: BP 142/81; PULSE 84; RESP 18; TEMP 36.7; O2SAT 95; BMI 25.1
--- NOTE | 2022-12-16 15:22 | ED_ITS ---
HPI - Extremity Problem General Chief complaint: Extremity Injury, Lower Stated complaint: pulled muscle in R calf Time Seen by Provider: 12/16/22 14:49 Source: patient and family (Spouse at bedside) Mode of arrival: ambulatory Limitations: no limitations History of Present Illness HPI Narrative: 42yoF with a PMHX of polysubstance abuse which include fentanyl, opioids and cocaine who is presenting with her spouse at bedside with complaints of pain and lumps to the right lateral aspect of her lower leg/calf area that has been present for the past 3 days. She is unsure if this is a pulled muscle. Reports that she has been sleeping in a truck and has been very uncomfortable and just moved up from [place]. She denies any IV drug use to this area. She denies any fevers, chills, chest pain or shortness of breath, leg swelling, recent falls or trauma, weakness, rashes, wounds, lesions, recent falls or trauma or any other symptoms complaints or concerns at this time. MD Complaint: extremity pain Onset (ago): day(s) (3) Pain Consistency: constant Location: right and lower extremity (lateral calf area) Quality: aching Radiation: none Relieving factors: nothing Exacerbating factors: walking and palpation Associated symptoms: denies other symptoms Related Data Previous Rx's Medication Instructions Recorded cephalexin 500 mg capsule 500 mg PO TID #21 caps 11/16/21 doxycycline monohydrate 100 mg 100 mg PO BID #20 tabs 11/16/21 tablet ibuprofen 800 mg tablet 800 mg PO Q8H PRN pain #20 tabs 11/16/21 doxycycline monohydrate 100 mg 100 mg PO BID 7 days #14 tabs 11/25/21 tablet famotidine 20 mg tablet (Pepcid) 20 mg PO DAILY PRN abdominal 11/25/21 discomfort #30 tabs ondansetron 4 mg disintegrating 4 mg PO Q8H PRN nausea and 11/25/21 tablet vomiting #20 tabs acetaminophen 500 mg tablet 1,000 mg PO QID PRN fever or pain 11/27/21 (Tylenol Extra Strength) #14 tabs cephalexin 500 mg capsule 500 mg PO Q6H cellulitis 10 days 11/27/21 #40 caps fluconazole 150 mg tablet 150 mg PO Q3D 2 doses #2 tabs 11/27/21 (Diflucan) ibuprofen 800 mg tablet 800 mg PO Q8H PRN pain #14 tabs 11/27/21 sulfamethoxazole 800 1 tab PO BID 10 days #20 tabs 11/27/21 mg-trimethoprim 160 mg tablet (Bactrim DS) acetaminophen 500 mg tablet 1,000 mg PO QID PRN fever or pain 01/20/22 (Tylenol Extra Strength) #14 tabs cyclobenzaprine 10 mg tablet 10 mg PO Q8H PRN Muscle spasm #14 01/20/22 tabs acetaminophen 500 mg tablet 1,000 mg PO QID PRN fever or pain 12/16/22 (Tylenol Extra Strength) #14 tabs cyclobenzaprine 10 mg tablet 10 mg PO Q8H #14 tabs 12/16/22 Allergies Allergy/AdvReac Type Severity Reaction Status Date / Time No Known Allergies Allergy Verified 01/20/22 08:29 Review of Systems Review of Systems: Constitutional : No Weight loss, No Fever, No Chills, No Night Sweats, No Fatigue, No Malaise ENT/Mouth : No Hearing loss, No Ear Pain, No Nasal Congestion, No Sinus Pain, No Hoarseness, No sore throat, No Rhinorrhea, No Swallowing Difficulty Eyes: No Eye Pain, No Swelling, No Redness, No Foreign Body, No Discharge, No Vision Changes Cardiovascular : No Chest Pain, No SOB, No Dyspnea on Exertion, No Orthopnea, No Edema, No Palpitations Respiratory : No Cough, No Sputum, No Wheezing, No Smoke Exposure, No Dyspnea Gastrointestinal : No Nausea, No Vomiting, No Diarrhea, No Constipation, No abdominal Pain, No Hematochezia, No Melena Genitourinary : no irregular bleeding, No Dysuria, No Urinary Frequency, No Hematuria, No Urinary Incontinence, No Urgency, No Flank Pain, No Urinary Flow Changes, No Hesitancy Musculoskeletal : + right calf/leg pain joint pain, No Myalgias, No Joint Swelling Skin : No Skin Lesions, No rash Neuro : No Weakness, No Numbness, No Paresthesias, No Loss of Consciousness, No Dizziness, No Headache Psych : No Anxiety/Panic, No Depression, No SI/HI/AH/VH, No Social Issues, Heme/Lymph: No Bruising, No Bleeding,No Lymphadenopathy Endocrine : No Polyuria, No Polydipsia, No Temperature Intolerance Yes all other systems are reviewed and are negative [facility] Past Medical History Attestation statement: The following information was validated with the patient. Source: old records reviewed, obtained from family and nursing notes reviewed Medical History Cellulitis Substance abuse in remission Social History Social History Patient Tobacco Use Status: Tobacco use Unknown Substance Use Type: Heroin Advance Directives: No Advance Directives Information Provided: Yes Physical Exam Vital Signs: Vital Signs: Last Vital Signs Temp 98.1 F 12/16/22 12:15 Pulse 84 12/16/22 12:15 Resp 18 12/16/22 12:15 BP 142/81 H 12/16/22 12:15 Pulse Ox 95 12/16/22 12:15 O2 Del Method 12/16/22 12:15 BMI result Body Mass Index 25.1 vital signs have been reviewed as normal and appeared to be correct. Blood pressure normal Heart rate normal. Respiration rate normal. Temperature normal. Oxygen saturation normal. Appearance: Alert. Oriented X3. No acute distress. Head: Normal external exam. Normocephalic. Atraumatic. Eyes: PERRLA. EOMI. Conjunctiva and sclera normal. Eyelids normal. ENT: Pharynx normal. Uvula midline. Moist mucous membranes. Neck: Normal inspection. Neck supple. FROM. CVS: Normal heart rate and rhythm. Respiratory: No respiratory distress. Painless inspiration. Skin: Skin warm and dry. Normal skin color. Normal skin turgor. No rashes/lesions/lacerations noted. Extremities: pt c ttp to right lateral aspect of calf area with mild sts to that area. No calf tenderness. No LE Edema. Otherwise all other extremities exhibit normal range of motion nontender. Neuro: Oriented X 3. No motor deficit. No sensory deficit. Reflexes normal. Normal steady gait. No focal neuro deficits noted. Vascular: + radial pulses/+ 2 distal pedal pulses/+2 dorsalis pedis b/l. Normal cap refill. No cyanosis noted to upper extremity nails and lower extremity toes nails. Course Course Course Narrative: 42yoF with a PMHX of polysubstance abuse which include fentanyl, opioids and cocaine who is presenting with her spouse at bedside with complaints of pain and lumps to the right lateral aspect of her lower leg/calf area that has been present for the past 3 days. She is unsure if this is a pulled muscle. Reports that she has been sleeping in a truck and has been very uncomfortable and just moved up from [place]. She denies any IV drug use to this area. On exam she does have some mild soft tissue swelling and tenderness palpation to the lateral aspect of the right lower leg. No calf tenderness is noted. No lower extremity edema noted. Although I did obtain a venous duplex ultrasound which is pending at this time patient is requesting to leave against medical advice reports that she needs to go eat and find a place to sleep with her spouse and she needs to leave at this time therefore she is requesting to leave against medical advice. She is alert oriented x3. Able to make her own medical decisions. Therefore at this time if her ultrasound is within normal limits I will not call her with the results although if it is abnormal I will call her. Patient and significant other at bedside understand agree this plan. Medical Decision Making Independent Interpretation I performed an independent interpretation of an: Ultrasound Radiology Impression Discussion of test interpretation with radiology: I have reviewed the radiologist's reading. Radiologist Impression: FINDINGS: There is normal venous compression and respiratory variation and augmented flow. The visualized common femoral vein, superficial femoral vein, profunda femoral vein, popliteal vein, and the trifurcation region shows no evidence of deep venous thrombosis. Dilated superficial calf varices are seen in the lateral/mid calf measuring up to 0.5 cm. Color Doppler showed associated vascular flow. Generalized compressibility was seen. No subcutaneous edema. No right popliteal cyst. US/US venous duplex LE RT IMPRESSION: 1.? No evidence for deep venous thrombosis in the visualized veins of the right lower extremity. 2.? Dilated superficial calf varices in the lateral/mid calf without other significant abnormality. Independent Historian Clinical information obtained from an independent historian. History obtained from or confirmed by: Spouse Discharge Plan Discharge Clinical Impression: Left against medical advice, Muscle strain of right lower leg Patient Disposition: Left Against Medical Advice Instructions: Muscle Strain (ED), Against Medical Advice (ED) Prescriptions: New cyclobenzaprine 10 mg tablet 10 mg PO Q8H Qty: 14 0RF acetaminophen [Tylenol Extra Strength] 500 mg tablet 1,000 mg PO QID PRN (Reason: fever or pain) Qty: 14 0RF No Action doxycycline monohydrate 100 mg tablet 100 mg PO BID Qty: 20 0RF cephalexin 500 mg capsule 500 mg PO TID Qty: 21 0RF ibuprofen 800 mg tablet 800 mg PO Q8H PRN (Reason: pain) Qty: 20 0RF famotidine [Pepcid] 20 mg tablet 20 mg PO DAILY PRN (Reason: abdominal discomfort) Qty: 30 0RF doxycycline monohydrate 100 mg tablet 100 mg PO BID 7 Days Qty: 14 0RF ondansetron 4 mg tablet,disintegrating 4 mg PO Q8H PRN (Reason: nausea and vomiting) Qty: 20 0RF cephalexin 500 mg capsule 500 mg PO Q6H 10 Days Qty: 40 0RF sulfamethoxazole-trimethoprim [Bactrim DS] 800-160 mg tablet 1 tab PO BID 10 Days Qty: 20 0RF acetaminophen [Tylenol Extra Strength] 500 mg tablet 1,000 mg PO QID PRN (Reason: fever or pain) Qty: 14 0RF ibuprofen 800 mg tablet 800 mg PO Q8H PRN (Reason: pain) Qty: 14 0RF fluconazole [Diflucan] 150 mg tablet 150 mg PO Q3D Qty: 2 0RF acetaminophen [Tylenol Extra Strength] 500 mg tablet 1,000 mg PO QID PRN (Reason: fever or pain) Qty: 14 0RF cyclobenzaprine 10 mg tablet 10 mg PO Q8H PRN (Reason: Muscle spasm) Qty: 14 0RF Referrals: Physician,None [Primary Care Provider] - (your pcp as needed)
== END 2022-12-16 15:46 | disposition left against medical advice (07) ==
PROVIDERS: Emergency Provider Emergency Medicine
DX: S86.911A Strain of unspecified muscle(s) and tendon(s) at lower leg level, right leg, initial encounter (principal); X50.1XXA Overexertion from prolonged static or awkward postures, initial encounter; M79.661 Pain in right lower leg; F19.10 Other psychoactive substance abuse, uncomplicated; Y93.89 Activity, other specified; Y92.812 Truck as the place of occurrence of the external cause; Y99.9 Unspecified external cause status
CPT/HCPCS: 93971; 99282; 99284

== ENCOUNTER 2023-01-06 00:24 | Emergency (ER) | payer OTHER, SELFPAY ==
[2023-01-06 00:52] VITALS: PULSE 114; RESP 20; TEMP 36.6; O2SAT 97; BMI 24.4
--- NOTE | 2023-01-06 00:56 | PC.NURSE ---
patient refusing blood pressure. unable to sit still or keep arm still
--- NOTE | 2023-01-06 01:03 | ED_ITS ---
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 reporting a robbery which was not true walking unsteady gait refusing to stay in the hospital no recent fall no SI or HI Related Data Previous Rx's Medication Instructions Recorded cephalexin 500 mg capsule 500 mg PO TID #21 caps 11/16/21 doxycycline monohydrate 100 mg 100 mg PO BID #20 tabs 11/16/21 tablet ibuprofen 800 mg tablet 800 mg PO Q8H PRN pain #20 tabs 11/16/21 doxycycline monohydrate 100 mg 100 mg PO BID 7 days #14 tabs 11/25/21 tablet famotidine 20 mg tablet (Pepcid) 20 mg PO DAILY PRN abdominal 11/25/21 discomfort #30 tabs ondansetron 4 mg disintegrating 4 mg PO Q8H PRN nausea and 11/25/21 tablet vomiting #20 tabs acetaminophen 500 mg tablet 1,000 mg PO QID PRN fever or pain 11/27/21 (Tylenol Extra Strength) #14 tabs cephalexin 500 mg capsule 500 mg PO Q6H cellulitis 10 days 11/27/21 #40 caps fluconazole 150 mg tablet 150 mg PO Q3D 2 doses #2 tabs 11/27/21 (Diflucan) ibuprofen 800 mg tablet 800 mg PO Q8H PRN pain #14 tabs 11/27/21 sulfamethoxazole 800 1 tab PO BID 10 days #20 tabs 11/27/21 mg-trimethoprim 160 mg tablet (Bactrim DS) acetaminophen 500 mg tablet 1,000 mg PO QID PRN fever or pain 01/20/22 (Tylenol Extra Strength) #14 tabs cyclobenzaprine 10 mg tablet 10 mg PO Q8H PRN Muscle spasm #14 01/20/22 tabs acetaminophen 500 mg tablet 1,000 mg PO QID PRN fever or pain 12/16/22 (Tylenol Extra Strength) #14 tabs cyclobenzaprine 10 mg tablet 10 mg PO Q8H #14 tabs 12/16/22 Allergies Allergy/AdvReac Type Severity Reaction Status Date / Time No Known Allergies Allergy Verified 01/20/22 08:29 Review of Systems Review of Systems: Yes all other systems are reviewed and are negative [facility] Past Medical History Medical History Cellulitis Substance abuse in remission Social History Social History Patient Tobacco Use Status: Tobacco use Unknown Substance Use Type: Heroin Physical Exam ED Vital Signs: Vital Signs - 24 hr 01/06/23 00:52 Temperature 97.9 F Pulse Rate 114 H Respiratory Rate 20 Pulse Oximetry 97 Oxygen Delivery Method Room Air BMI result Body Mass Index 24.4 Appearance: Alert. Oriented X3. No acute distress. Anxious ETOH+ Eyes: PERRLA, No Nystagmus ENT: Pharynx normal. Oral Mucosa moist atraumatic normocephalic Neck: Normal inspection. Neck supple. CVS: Normal heart rate and rhythm. Pulses normal. Respiratory: No respiratory distress. Equal air entry bilateral, no wheezing/rales/rhonchi Abdomen: Soft and nontender. Bowel sounds are present, no mass palpable, no CVA tenderness Skin: Skin warm and dry. Normal skin color. Normal skin turgor. Extremities: No lower extremity edema. No calf tenderness Neuro: Oriented X 3. No motor deficit. No sensory deficit.No cerebellar signs , cranial nerves II-XII intact steady gait Medical Decision Making Medical Decision Making MDM Narrative: Patient refused to stay in the ER refused any help wanted to go home shouting in the ER will discharge patient home advised to follow up as outpatient Discharge Plan Discharge Clinical Impression: Alcoholic intoxication, Polysubstance abuse Patient Disposition: Home, Self-Care Instructions: Abuse of Alcohol (ED), Polysubstance Abuse (ED) Additional Instructions: Stop using alcohol and using drugs follow up with detox/psychiatrist/therapy Prescriptions: No Action doxycycline monohydrate 100 mg tablet 100 mg PO BID Qty: 20 0RF cephalexin 500 mg capsule 500 mg PO TID Qty: 21 0RF ibuprofen 800 mg tablet 800 mg PO Q8H PRN (Reason: pain) Qty: 20 0RF cyclobenzaprine 10 mg tablet 10 mg PO Q8H Qty: 14 0RF acetaminophen [Tylenol Extra Strength] 500 mg tablet 1,000 mg PO QID PRN (Reason: fever or pain) Qty: 14 0RF famotidine [Pepcid] 20 mg tablet 20 mg PO DAILY PRN (Reason: abdominal discomfort) Qty: 30 0RF doxycycline monohydrate 100 mg tablet 100 mg PO BID 7 Days Qty: 14 0RF ondansetron 4 mg tablet,disintegrating 4 mg PO Q8H PRN (Reason: nausea and vomiting) Qty: 20 0RF cephalexin 500 mg capsule 500 mg PO Q6H 10 Days Qty: 40 0RF sulfamethoxazole-trimethoprim [Bactrim DS] 800-160 mg tablet 1 tab PO BID 10 Days Qty: 20 0RF acetaminophen [Tylenol Extra Strength] 500 mg tablet 1,000 mg PO QID PRN (Reason: fever or pain) Qty: 14 0RF ibuprofen 800 mg tablet 800 mg PO Q8H PRN (Reason: pain) Qty: 14 0RF fluconazole [Diflucan] 150 mg tablet 150 mg PO Q3D Qty: 2 0RF acetaminophen [Tylenol Extra Strength] 500 mg tablet 1,000 mg PO QID PRN (Reason: fever or pain) Qty: 14 0RF cyclobenzaprine 10 mg tablet 10 mg PO Q8H PRN (Reason: Muscle spasm) Qty: 14 0RF
== END 2023-01-06 01:10 | disposition home or self-care (01) ==
LOC: HO.ED 01:07
PROVIDERS: Emergency Provider Internal Medicine
DX: F10.220 Alcohol dependence with intoxication, uncomplicated (principal); Y90.9 Presence of alcohol in blood, level not specified; F19.10 Other psychoactive substance abuse, uncomplicated; Z79.899 Other long term (current) drug therapy
CPT/HCPCS: 99283

== ENCOUNTER 2023-01-22 12:15 | Emergency (ER) | payer OTHER, SELFPAY ==
--- NOTE | 2023-01-22 12:27 | ED_ITS ---
HPI - Skin/Abscess/Foreign Bdy General Chief complaint: Skin/Abscess/Foreign Body Stated complaint: B/L Feet Cracked Skin Time Seen by Provider: 01/22/23 12:30 Source: patient, RN notes reviewed and old records reviewed Mode of arrival: ambulatory History of Present Illness HPI narrative: 42yo F w/PMHx substance abuse, homelessness, c/o bilaterally cracked skin on heels x months. Admits [id number] creams without relief. States she is homeless, difficulty staying off of her feet. Denies drainage from area, fever/chills complaint: other Onset (ago): month(s) Related Data Previous Rx's Medication Instructions Recorded cephalexin 500 mg capsule 500 mg PO TID #21 caps 11/16/21 doxycycline monohydrate 100 mg 100 mg PO BID #20 tabs 11/16/21 tablet ibuprofen 800 mg tablet 800 mg PO Q8H PRN pain #20 tabs 11/16/21 doxycycline monohydrate 100 mg 100 mg PO BID 7 days #14 tabs 11/25/21 tablet famotidine 20 mg tablet (Pepcid) 20 mg PO DAILY PRN abdominal 11/25/21 discomfort #30 tabs ondansetron 4 mg disintegrating 4 mg PO Q8H PRN nausea and 11/25/21 tablet vomiting #20 tabs acetaminophen 500 mg tablet 1,000 mg PO QID PRN fever or pain 11/27/21 (Tylenol Extra Strength) #14 tabs cephalexin 500 mg capsule 500 mg PO Q6H cellulitis 10 days 11/27/21 #40 caps fluconazole 150 mg tablet 150 mg PO Q3D 2 doses #2 tabs 11/27/21 (Diflucan) ibuprofen 800 mg tablet 800 mg PO Q8H PRN pain #14 tabs 11/27/21 sulfamethoxazole 800 1 tab PO BID 10 days #20 tabs 11/27/21 mg-trimethoprim 160 mg tablet (Bactrim DS) acetaminophen 500 mg tablet 1,000 mg PO QID PRN fever or pain 01/20/22 (Tylenol Extra Strength) #14 tabs cyclobenzaprine 10 mg tablet 10 mg PO Q8H PRN Muscle spasm #14 01/20/22 tabs acetaminophen 500 mg tablet 1,000 mg PO QID PRN fever or pain 12/16/22 (Tylenol Extra Strength) #14 tabs cyclobenzaprine 10 mg tablet 10 mg PO Q8H #14 tabs 12/16/22 Allergies Allergy/AdvReac Type Severity Reaction Status Date / Time No Known Allergies Allergy Verified 01/22/23 12:28 Review of Systems Review of Systems: Constitutional: No Fever, No Chills ENT/Mouth: No Ear Pain, No Nasal Congestion, No sore throat, No Rhinorrhea, No Swallowing Difficulty Cardiovascular: No Chest Pain, No SOB Respiratory: No Cough, No Sputum Gastrointestinal: No Nausea, No Vomiting, No Abdominal pain Musculoskeletal: No joint pain, No Myalgias, No Joint Swelling Skin: +Skin Lesions, No rash Neuro: No Weakness, No Numbness, No Paresthesias Yes all other systems are reviewed and are negative Constitutional: Constitutional: Reports as per [facility] Past Medical History Attestation statement: The following information was validated with the patient. Medical History Cellulitis Substance abuse in remission Social History Social History Patient Tobacco Use Status: Tobacco use Unknown Substance Use Type: Heroin Advance Directives: No Advance Directives Information Provided: No Physical Exam Vital Signs: Vital Signs: Last Vital Signs Temp 98 F 01/22/23 12:28 Pulse 80 01/22/23 12:28 Resp 19 01/22/23 12:28 BP 127/96 H 01/22/23 12:28 Pulse Ox 99 01/22/23 12:28 O2 Del Method Room Air 01/22/23 12:28 BMI result Body Mass Index 26.6 Const: General: cooperative, healthy appearing and no acute distress Orientation/consciousness: patient oriented x3 Limitations: no limitations HEENT: Head: Yes normal to inspection and Yes atraumatic Ears: hearing grossly normal bilaterally General nose exam: Normal external nose present Face and sinus: Yes normal facial exam Eyes: General: appearance normal, both eyes and all related structures EOM: EOMs intact bilaterally Neck: Neck: Yes normal visual inspection and Yes no meningeal signs Resp: Effort & Inspection: normal respiratory effort and no respiratory distress Cardio: Rate: regular rate Heart sounds: S1 normal heart sound present and S2 normal heart sound present Skin: Other: +deep cracked skin to plantar aspect bilateral heels and great toes. Mildly tender to palpation. No surrounding erythema, no fluctuance/ induration or drainage. Rashes: no rashes Neuro: General: patient oriented x3, tone normal and no meningeal signs Gait exam (Neuro): Normal gait present Extrem: General: Yes normal to inspection Medical Decision Making Medical Decision Making MDM Narrative: 42yo F w/PMHx substance abuse, homelessness, c/o bilaterally cracked skin on heels x months. On exam vital signs stable, NAD, physical exam as above with cracked skin to bilateral feet. No evidence of infection/cellulitis or abscess. Will soak feet in Betadine/warm water and applied Dermabond to close wounds to help allow for healing Please refer to course for remaining clinical decision making, interpretation of labs/imaging results, and discussions with consultants and/or family members. Differential Diagnosis Differential Diagnoses: The differential diagnosis associated with the presentation includes As above Admission/Observation Consideration of admission/observation: Escalation of care including admission/observation considered Lab Data [facility] Lab Attestation statement: I reviewed the patient's lab results. Radiology Impression Discussion of test interpretation with radiology: I have reviewed the radiologist's reading. External Record Review External record reviewed: Inpatient record, Office record, Outpatient record, Prior outpatient labs, Prior outpatient radiology, Primary care record and Outside ED record Procedures Procedure Narrative Procedure Narrative: Dermabond applied to bilateral heels and right great toe No complications Discharge Plan Discharge Clinical Impression: Cracked skin on feet Patient Disposition: Home, Self-Care Instructions: Acute Wounds (DC) Additional Instructions: Try to keep her feet dry and clean Skin glue will fall off on its own do not pick at it If areas begin flick infected return to the ED Prescriptions: No Action doxycycline monohydrate 100 mg tablet 100 mg PO BID Qty: 20 0RF cephalexin 500 mg capsule 500 mg PO TID Qty: 21 0RF ibuprofen 800 mg tablet 800 mg PO Q8H PRN (Reason: pain) Qty: 20 0RF cyclobenzaprine 10 mg tablet 10 mg PO Q8H Qty: 14 0RF acetaminophen [Tylenol Extra Strength] 500 mg tablet 1,000 mg PO QID PRN (Reason: fever or pain) Qty: 14 0RF famotidine [Pepcid] 20 mg tablet 20 mg PO DAILY PRN (Reason: abdominal discomfort) Qty: 30 0RF doxycycline monohydrate 100 mg tablet 100 mg PO BID 7 Days Qty: 14 0RF ondansetron 4 mg tablet,disintegrating 4 mg PO Q8H PRN (Reason: nausea and vomiting) Qty: 20 0RF cephalexin 500 mg capsule 500 mg PO Q6H 10 Days Qty: 40 0RF sulfamethoxazole-trimethoprim [Bactrim DS] 800-160 mg tablet 1 tab PO BID 10 Days Qty: 20 0RF acetaminophen [Tylenol Extra Strength] 500 mg tablet 1,000 mg PO QID PRN (Reason: fever or pain) Qty: 14 0RF ibuprofen 800 mg tablet 800 mg PO Q8H PRN (Reason: pain) Qty: 14 0RF fluconazole [Diflucan] 150 mg tablet 150 mg PO Q3D Qty: 2 0RF acetaminophen [Tylenol Extra Strength] 500 mg tablet 1,000 mg PO QID PRN (Reason: fever or pain) Qty: 14 0RF cyclobenzaprine 10 mg tablet 10 mg PO Q8H PRN (Reason: Muscle spasm) Qty: 14 0RF Referrals: Physician,None [Primary Care Provider] - Interventions: ED Discharge Assessment Last Done: 01/22/23 13:41 Discharge Date/Time: 01/22/23 13:42
[2023-01-22 12:28] VITALS: BP 127/96; PULSE 80; RESP 19; TEMP 36.6; O2SAT 99; BMI 26.6
--- NOTE | 2023-01-22 12:58 | PC.NURSE ---
pt soaking feet in betadine, dermabond applied by provider.
== END 2023-01-22 13:42 | disposition home or self-care (01) ==
PROVIDERS: Emergency Provider Emergency Medicine
DX: L85.3 Xerosis cutis (principal); M79.672 Pain in left foot; M79.671 Pain in right foot; Z79.899 Other long term (current) drug therapy; F19.10 Other psychoactive substance abuse, uncomplicated
CPT/HCPCS: 99282

== ENCOUNTER 2023-01-28 13:30 | Emergency (ER) | payer OTHER, SELFPAY ==
--- NOTE | ~2023-01-28 | XR_ITS ---
EXAMINATION: XR ANKLE, LEFT CLINICAL INFORMATION: Pain and swelling. COMPARISON: None available. TECHNIQUE: Left ankle is imaged in 3 views. FINDINGS: The malleoli are intact and the ankle mortise is symmetric. There is no fracture or dislocation or arthropathy. No joint narrowing. No visible ankle capsular effusion. The subtalar joint appears normal. The retrocalcaneal recess is preserved. XR/XR ankle LT min 3V IMPRESSION: Normal left ankle.
[2023-01-28 13:55] VITALS: BP 121/68; PULSE 73; RESP 18; TEMP 36.2; O2SAT 95; BMI 25.8
--- NOTE | 2023-01-28 13:55 | ED.GENADULT ---
HPI - General Adult General Chief complaint: Extremity Injury, Lower <JESSI Adler - Last Filed: 01/28/23 13:59> Stated complaint: L leg pain, swollen <JESSI Adler - Last Filed: 01/28/23 13:59> Time Seen by Provider: 01/28/23 17:04 <JESSI Adler - Last Filed: 01/28/23 13:59> Source: patient <Yessica Barger NP - Last Filed: 01/28/23 18:16> Mode of arrival: ambulatory <Yessica Barger NP - Last Filed: 01/28/23 18:16> Limitations: no limitations <Yessica Barger NP - Last Filed: 01/28/23 18:16> History of Present Illness HPI narrative: Patient is a 42-year-old female with history of cellulitis and substance use disorder complaining of left lower leg redness and pain for the past several days. She denies any trauma to the area. Denies any recent fevers. Denies any calf pain or shortness of breath. She has not attempted any OTC treatment for her symptoms. <Yessica Barger NP - Last Filed: 01/28/23 18:16> Related Data Home medications: Previous Rx's Medication Instructions Recorded cephalexin 500 mg capsule 500 mg PO TID #21 caps 11/16/21 doxycycline monohydrate 100 mg 100 mg PO BID #20 tabs 11/16/21 tablet ibuprofen 800 mg tablet 800 mg PO Q8H PRN pain #20 tabs 11/16/21 doxycycline monohydrate 100 mg 100 mg PO BID 7 days #14 tabs 11/25/21 tablet famotidine 20 mg tablet (Pepcid) 20 mg PO DAILY PRN abdominal 11/25/21 discomfort #30 tabs ondansetron 4 mg disintegrating 4 mg PO Q8H PRN nausea and 11/25/21 tablet vomiting #20 tabs acetaminophen 500 mg tablet 1,000 mg PO QID PRN fever or pain 11/27/21 (Tylenol Extra Strength) #14 tabs cephalexin 500 mg capsule 500 mg PO Q6H cellulitis 10 days 11/27/21 #40 caps fluconazole 150 mg tablet 150 mg PO Q3D 2 doses #2 tabs 11/27/21 (Diflucan) ibuprofen 800 mg tablet 800 mg PO Q8H PRN pain #14 tabs 11/27/21 sulfamethoxazole 800 1 tab PO BID 10 days #20 tabs 11/27/21 mg-trimethoprim 160 mg tablet (Bactrim DS) acetaminophen 500 mg tablet 1,000 mg PO QID PRN fever or pain 01/20/22 (Tylenol Extra Strength) #14 tabs cyclobenzaprine 10 mg tablet 10 mg PO Q8H PRN Muscle spasm #14 01/20/22 tabs acetaminophen 500 mg tablet 1,000 mg PO QID PRN fever or pain 12/16/22 (Tylenol Extra Strength) #14 tabs cyclobenzaprine 10 mg tablet 10 mg PO Q8H #14 tabs 12/16/22 acetaminophen 500 mg capsule 1,000 mg PO QID PRN pain #14 caps 01/28/23 cephalexin 500 mg capsule 500 mg PO QID #40 caps 01/28/23 doxycycline hyclate 100 mg capsule 100 mg PO BID #20 caps 01/28/23 <JESSI Adler - Last Filed: 01/28/23 13:59> Allergies/adverse reactions: Allergies Allergy/AdvReac Type Severity Reaction Status Date / Time No Known Allergies Allergy Verified 01/28/23 13:58 <JESSI Adler - Last Filed: 01/28/23 13:59> Review of Systems Review of Systems: Yes all other systems are reviewed and are negative <Yessica Barger NP - Last Filed: 01/28/23 18:16> FOR[facility]LY [facility] Past Medical History Medical History: Medical History Cellulitis Substance abuse in remission <JESSI Adler - Last Filed: 01/28/23 13:59> Social History Social History: Social History Patient Tobacco Use Status: Tobacco use Unknown Substance Use Type: Heroin Advance Directives: No Advance Directives Information Provided: No <JESSI Adler - Last Filed: 01/28/23 13:59> Physical Exam ED Vital Signs: Vital Signs - 24 hr 01/28/23 13:55 Temperature 97.2 F Pulse Rate 73 Respiratory Rate 18 Blood Pressure 121/68 Pulse Oximetry 95 Oxygen Delivery Method Room Air BMI result Body Mass Index 25.8 <JESSI Adler - Last Filed: 01/28/23 13:59> Vital Signs - 24 hr 01/28/23 13:55 Temperature 97.2 F Pulse Rate 73 Respiratory Rate 18 Blood Pressure 121/68 Pulse Oximetry 95 Oxygen Delivery Method Room Air BMI result Body Mass Index 25.8 <Yessica Barger NP - Last Filed: 01/28/23 18:16> Appearance: Alert. Oriented X3. No acute distress. Head: normocephalic, atraumatic. Eyes: Pupils equal, round and reactive to light. ENT: Pharynx normal. No tonsillar swelling or exudate. Neck: Normal inspection. Neck supple. CVS: Normal heart rate and rhythm. Pulses normal. Respiratory: No respiratory distress. Breath sounds normal. Abdomen: Soft and nontender. +BS x4 Skin: Slight erythema to distal aspect of left anterior lower leg without calor, no open areas, no drainage. No induration or fluctuant areas. Skin warm and dry. Normal skin color. Normal skin turgor. No rashes. Extremities: No lower extremity edema. No joint swelling. Neuro/psych: Oriented X 3. No motor deficit. No sensory deficit. CN II-XII intact. Normal speech and cognition. <Yessica Barger NP - Last Filed: 01/28/23 18:16> Course Course Course Narrative: This is an RME: Additional HPI, ROS, PE not included below will be deferred to primary provider. 42 year old female presents with LLE pain and swelling that started 3 days ago. Patients denies trauma or tobacco use. Patient endorses current daily IV drug use - denies using on the affected leg. Patient denies fever, chills. PE: edema, induration, eythema, warmth of the L ankle and foot. <JESSI Adler - Last Filed: 01/28/23 13:59> Medical Decision Making Medical Decision Making MDM Narrative: 42-year-old patient presenting with localized erythema to left lower leg concerning for cellulitis. Area is sensitive to light touch in area of erythema. Labs unremarkable. X-ray normal. No lymphangitic spread visible, no fluctuance or concern for abscess. Low concern for DVT or osteomyelitis. No immune compromise, bullae, pain out of proportion, or rapid progression concerning for necrotizing fasciitis. Patient has stable vital signs, is afebrile, is nontoxic appearing, no evidence of serious bacterial illness requiring admission for IV antibiotics. Will discharge home on Keflex. Return precautions discussed at bedside. <Yessica Barger NP - Last Filed: 01/28/23 18:16> Differential Diagnosis Differential Diagnoses: The differential diagnosis associated with the presentation includes <Yessica Barger NP - Last Filed: 01/28/23 18:16> See above note. <Yessica Barger NP - Last Filed: 01/28/23 18:16> Lab Data MDM Lab Attestation statement: I reviewed the patient's lab results. <Yessica Barger NP - Last Filed: 01/28/23 18:16> Result Diagrams: 01/28/23 15:02 01/28/23 15:02 <JESSI Adler - Last Filed: 01/28/23 13:59> Labs: Lab Results 01/28/23 01/28/23 01/28/23 Range/Units 15:02 15:02 15:02 WBC 5.3 (4.8-10.8) X10*3/uL RBC 4.06 L (4.20-5.50) X10*6/uL Hgb 12.9 (12.0-16.0) g/dl Hct 40.2 (37.0-47.0) % MCV 99.0 H (80.0-98.0) fL MCH 31.8 (27.0-33.0) pg MCHC 32.1 (31.0-35.0) g/dl RDW 12.2 (11.0-16.0) % Plt Count 251 (160-400) X10*3/uL MPV 10.5 (9.4-12.3) fL Immature Gran % (Auto) 0.2 (0.0-0.4) % Neut % (Auto) 59.7 (45-73) % Lymph % (Auto) 23.6 (20-40) % [place] % (Auto) 13.7 H (2-11) % Eos % (Auto) 2.2 (0-4) % Baso % (Auto) 0.6 (0-2) % Lymph # (Auto) 1.3 (1.2-4.9) X10*3/uL [place] # (Auto) 0.7 (0.1-1.2) X10*3/uL Eos # (Auto) 0.1 (0.0-0.4) X10*3/uL Baso # (Auto) 0.0 (0.0-0.2) X10*3/uL Abs Immat Gran (auto) 0.01 (0.00-0.03) X10*3/uL Absolute Neuts (auto) 3.2 (2.0-8.3) x10*3/uL Absolute Nucleated RBC 0.000 (0.0-0.012) X10*3/uL Nucleated RBC % (auto) 0.0 (0.0-0.2) /100WBC ESR 14 (0-20) MM/HR Sodium 142 (135-145) mmol/L Potassium 4.6 (3.3-5.1) mmol/L Chloride 103 (96-108) mmol/L Carbon Dioxide 32 H (22-29) mmol/L Anion Gap 12 (12-20) BUN 18 H (9-16) mg/dL Creatinine 0.81 (0.5-1.4) mg/dL Estim Creat Clear Calc 99.8 Estimated GFR > 60 Random Glucose 84 (60-115) mg/dL Lactic Acid (0.5-2.0) mmol/L Calcium 9.3 (8.4-10.2) mg/dL Magnesium 1.8 (1.6-2.6) mg/dL Total Bilirubin 0.7 (0.0-1.0) mg/dL AST 83 H (5-31) U/L ALT 70 H (0-31) U/L Alkaline Phosphatase 125 H (39-117) U/L C-Reactive Protein 5.42 H (< or = 0.50) mg/dL Total Protein 7.0 (6.5-8.0) g/dL Albumin 3.7 (3.5-5.0) g/dL 04/26/23 Range/Units 15:02 WBC (4.8-10.8) X10*3/uL RBC (4.20-5.50) X10*6/uL Hgb (12.0-16.0) g/dl Hct (37.0-47.0) % MCV (80.0-98.0) fL MCH (27.0-33.0) pg MCHC (31.0-35.0) g/dl RDW (11.0-16.0) % Plt Count (160-400) X10*3/uL MPV (9.4-12.3) fL Immature Gran % (Auto) (0.0-0.4) % Neut % (Auto) (45-73) % Lymph % (Auto) (20-40) % [place] % (Auto) (2-11) % Eos % (Auto) (0-4) % Baso % (Auto) (0-2) % Lymph # (Auto) (1.2-4.9) X10*3/uL [place] # (Auto) (0.1-1.2) X10*3/uL Eos # (Auto) (0.0-0.4) X10*3/uL Baso # (Auto) (0.0-0.2) X10*3/uL Abs Immat Gran (auto) (0.00-0.03) X10*3/uL Absolute Neuts (auto) (2.0-8.3) x10*3/uL Absolute Nucleated RBC (0.0-0.012) X10*3/uL Nucleated RBC % (auto) (0.0-0.2) /100WBC ESR (0-20) MM/HR Sodium (135-145) mmol/L Potassium (3.3-5.1) mmol/L Chloride (96-108) mmol/L Carbon Dioxide (22-29) mmol/L Anion Gap (12-20) BUN (9-16) mg/dL Creatinine (0.5-1.4) mg/dL Estim Creat Clear Calc Estimated GFR Random Glucose (60-115) mg/dL Lactic Acid 1.2 (0.5-2.0) mmol/L Calcium (8.4-10.2) mg/dL Magnesium (1.6-2.6) mg/dL Total Bilirubin (0.0-1.0) mg/dL AST (5-31) U/L ALT (0-31) U/L Alkaline Phosphatase (39-117) U/L C-Reactive Protein (< or = 0.50) mg/dL Total Protein (6.5-8.0) g/dL Albumin (3.5-5.0) g/dL <JESSI Adler - Last Filed: 01/28/23 13:59> Lab Results 01/28/23 01/28/23 01/28/23 Range/Units 15:02 15:02 15:02 WBC 5.3 (4.8-10.8) X10*3/uL RBC 4.06 L (4.20-5.50) X10*6/uL Hgb 12.9 (12.0-16.0) g/dl Hct 40.2 (37.0-47.0) % MCV 99.0 H (80.0-98.0) fL MCH 31.8 (27.0-33.0) pg MCHC 32.1 (31.0-35.0) g/dl RDW 12.2 (11.0-16.0) % Plt Count 251 (160-400) X10*3/uL MPV 10.5 (9.4-12.3) fL Immature Gran % (Auto) 0.2 (0.0-0.4) % Neut % (Auto) 59.7 (45-73) % Lymph % (Auto) 23.6 (20-40) % [place] % (Auto) 13.7 H (2-11) % Eos % (Auto) 2.2 (0-4) % Baso % (Auto) 0.6 (0-2) % Lymph # (Auto) 1.3 (1.2-4.9) X10*3/uL [place] # (Auto) 0.7 (0.1-1.2) X10*3/uL Eos # (Auto) 0.1 (0.0-0.4) X10*3/uL Baso # (Auto) 0.0 (0.0-0.2) X10*3/uL Abs Immat Gran (auto) 0.01 (0.00-0.03) X10*3/uL Absolute Neuts (auto) 3.2 (2.0-8.3) x10*3/uL Absolute Nucleated RBC 0.000 (0.0-0.012) X10*3/uL Nucleated RBC % (auto) 0.0 (0.0-0.2) /100WBC ESR 14 (0-20) MM/HR Sodium 142 (135-145) mmol/L Potassium 4.6 (3.3-5.1) mmol/L Chloride 103 (96-108) mmol/L Carbon Dioxide 32 H (22-29) mmol/L Anion Gap 12 (12-20) BUN 18 H (9-16) mg/dL Creatinine 0.81 (0.5-1.4) mg/dL Estim Creat Clear Calc 99.8 Estimated GFR > 60 Random Glucose 84 (60-115) mg/dL Lactic Acid (0.5-2.0) mmol/L Calcium 9.3 (8.4-10.2) mg/dL Magnesium 1.8 (1.6-2.6) mg/dL Total Bilirubin 0.7 (0.0-1.0) mg/dL AST 83 H (5-31) U/L ALT 70 H (0-31) U/L Alkaline Phosphatase 125 H (39-117) U/L C-Reactive Protein 5.42 H (< or = 0.50) mg/dL Total Protein 7.0 (6.5-8.0) g/dL Albumin 3.7 (3.5-5.0) g/dL 01/28/23 Range/Units 15:02 WBC (4.8-10.8) X10*3/uL RBC (4.20-5.50) X10*6/uL Hgb (12.0-16.0) g/dl Hct (37.0-47.0) % MCV (80.0-98.0) fL MCH (27.0-33.0) pg MCHC (31.0-35.0) g/dl RDW (11.0-16.0) % Plt Count (160-400) X10*3/uL MPV (9.4-12.3) fL Immature Gran % (Auto) (0.0-0.4) % Neut % (Auto) (45-73) % Lymph % (Auto) (20-40) % [place] % (Auto) (2-11) % Eos % (Auto) (0-4) % Baso % (Auto) (0-2) % Lymph # (Auto) (1.2-4.9) X10*3/uL [place] # (Auto) (0.1-1.2) X10*3/uL Eos # (Auto) (0.0-0.4) X10*3/uL Baso # (Auto) (0.0-0.2) X10*3/uL Abs Immat Gran (auto) (0.00-0.03) X10*3/uL Absolute Neuts (auto) (2.0-8.3) x10*3/uL Absolute Nucleated RBC (0.0-0.012) X10*3/uL Nucleated RBC % (auto) (0.0-0.2) /100WBC ESR (0-20) MM/HR Sodium (135-145) mmol/L Potassium (3.3-5.1) mmol/L Chloride (96-108) mmol/L Carbon Dioxide (22-29) mmol/L Anion Gap (12-20) BUN (9-16) mg/dL Creatinine (0.5-1.4) mg/dL Estim Creat Clear Calc Estimated GFR Random Glucose (60-115) mg/dL Lactic Acid 1.2 (0.5-2.0) mmol/L Calcium (8.4-10.2) mg/dL Magnesium (1.6-2.6) mg/dL Total Bilirubin (0.0-1.0) mg/dL AST (5-31) U/L ALT (0-31) U/L Alkaline Phosphatase (39-117) U/L C-Reactive Protein (< or = 0.50) mg/dL Total Protein (6.5-8.0) g/dL Albumin (3.5-5.0) g/dL <Yesisca Barger NP - Last Filed: 01/28/23 18:16> Independent Interpretation I performed an independent interpretation of an: Plain X-Ray <Yessica Barger NP - Last Filed: 01/28/23 18:16> Interpretation: I independently reviewed the x-ray and agree with the radiologist's interpretation. <Yessica Barger NP - Last Filed: 01/28/23 18:16> Radiology Impression Discussion of test interpretation with radiology: I have reviewed the radiologist's reading. <Yessica Barger NP - Last Filed: 01/28/23 18:16> Radiologist Impression: FINDINGS: The malleoli are intact and the ankle mortise is symmetric. There is no fracture or dislocation or arthropathy. No joint narrowing. No visible ankle capsular effusion. The subtalar joint appears normal. The retrocalcaneal recess is preserved.? XR/XR ankle LT min 3V IMPRESSION: Normal left ankle. <Yessica Barger NP - Last Filed: 01/28/23 18:16> Prescription Management I considered prescription management with: Pain Medication (Acetaminophen) and Antibiotic (Keflex) <KASSIDY Carr Last Filed: 01/28/23 18:16> Social Determinants Patient?s care significantly limited by Social Determinants of Health including: Inadequate housing <KASSIDY Carr Last Filed: 01/28/23 18:16> Discharge Plan Discharge Clinical Impression: Cellulitis of left leg <JESSI Adler - Last Filed: 01/28/23 13:59> Patient Disposition: Home, Self-Care <JESSI Adler Last Filed: 01/28/23 13:59> Instructions: Cellulitis (DC) <JESSI Adler - Last Filed: 01/28/23 13:59> Additional Instructions: You are being prescribed antibiotics (Keflex and doxycycline) for a skin infection on your leg, also known as cellulitis. You should take the full course of antibiotics as prescribed even if your symptoms improved. You should assess the area daily for any worsening redness, warmth, or streaking up your leg and should return if this develops or if you develop a fever. You are also being prescribed Tylenol as needed for pain. <JESSI Adler Last Filed: 01/28/23 13:59> Prescriptions: New doxycycline hyclate 100 mg capsule 100 mg PO BID Qty: 20 0RF cephalexin 500 mg capsule 500 mg PO QID Qty: 40 0RF acetaminophen 500 mg capsule 1,000 mg PO QID PRN (Reason: pain) Qty: 14 0RF No Action doxycycline monohydrate 100 mg tablet 100 mg PO BID Qty: 20 0RF cephalexin 500 mg capsule 500 mg PO TID Qty: 21 0RF ibuprofen 800 mg tablet 800 mg PO Q8H PRN (Reason: pain) Qty: 20 0RF cyclobenzaprine 10 mg tablet 10 mg PO Q8H Qty: 14 0RF acetaminophen [Tylenol Extra Strength] 500 mg tablet 1,000 mg PO QID PRN (Reason: fever or pain) Qty: 14 0RF famotidine [Pepcid] 20 mg tablet 20 mg PO DAILY PRN (Reason: abdominal discomfort) Qty: 30 0RF doxycycline monohydrate 100 mg tablet 100 mg PO BID 7 Days Qty: 14 0RF ondansetron 4 mg tablet,disintegrating 4 mg PO Q8H PRN (Reason: nausea and vomiting) Qty: 20 0RF cephalexin 500 mg capsule 500 mg PO Q6H 10 Days Qty: 40 0RF sulfamethoxazole-trimethoprim [Bactrim DS] 800-160 mg tablet 1 tab PO BID 10 Days Qty: 20 0RF acetaminophen [Tylenol Extra Strength] 500 mg tablet 1,000 mg PO QID PRN (Reason: fever or pain) Qty: 14 0RF ibuprofen 800 mg tablet 800 mg PO Q8H PRN (Reason: pain) Qty: 14 0RF fluconazole [Diflucan] 150 mg tablet 150 mg PO Q3D Qty: 2 0RF acetaminophen [Tylenol Extra Strength] 500 mg tablet 1,000 mg PO QID PRN (Reason: fever or pain) Qty: 14 0RF cyclobenzaprine 10 mg tablet 10 mg PO Q8H PRN (Reason: Muscle spasm) Qty: 14 0RF <JESSI Adler - Last Filed: 01/28/23 13:59>
[2023-01-28 15:08] LABS: MANUAL DIFF FLAG NO
[2023-01-28 15:10] LABS: Basophils Percent Auto 0.6 % (0-2); Eosinophils Absolute Auto 0.1 X10*3/uL (0.0-0.4); Eosinophils Percent Auto 2.2 % (0-4); Hematocrit 40.2 % (37.0-47.0); Hemoglobin 12.9 g/dl (12.0-16.0); Imm Gran Abs Auto 0.01 X10*3/uL (0.00-0.03); Imm Gran Pct Auto 0.2 % (0.0-0.4); Lymphocytes Absolute Auto 1.3 X10*3/uL (1.2-4.9); Lymphocytes Percent Auto 23.6 % (20-40); Mean Corpuscular HGB Conc 32.1 g/dl (31.0-35.0); Mean Corpuscular Hemoglobin 31.8 pg (27.0-33.0); Mean Platelet Volume 10.5 fL (9.4-12.3); Monocytes Absolute Auto 0.7 X10*3/uL (0.1-1.2); Monocytes Percent Auto 13.7 % (2-11); Neutrophils Absolute Auto 3.2 x10*3/uL (2.0-8.3); Neutrophils Percent Auto 59.7 % (45-73); Platelet Count 251 X10*3/uL (160-400); Red Blood Count 4.06 X10*6/uL (4.20-5.50); Red Cell Distribution Width 12.2 % (11.0-16.0); White Blood Count 5.3 X10*3/uL (4.8-10.8)
[2023-01-28 15:29] LABS: Lactic Acid 1.2 mmol/L (0.5-2.0)
[2023-01-28 15:56] LABS: Erythrocyte Sedimentation Rate 14 MM/HR (0-20)
[2023-01-28 16:25] LABS: Alanine Aminotransferase 70 U/L (0-31); Albumin Level 3.7 g/dL (3.5-5.0); Alkaline Phosphatase 125 U/L (39-117); Anion Gap 12 (12-20); Aspartate Amino Transferase 83 U/L (5-31); Bilirubin Total 0.7 mg/dL (0.0-1.0); Blood Urea Nitrogen 18 mg/dL (9-16); C Reactive Protein 5.42 mg/dL (< or = 0.50); Calcium 9.3 mg/dL (8.4-10.2); Carbon Dioxide 32 mmol/L (22-29); Chloride 103 mmol/L (96-108); Creatinine Clr Calc Pharmacy 99.8; Estimated Glomerular Filt Rate > 60; Glucose Random 84 mg/dL (60-115); Magnesium 1.8 mg/dL (1.6-2.6); Potassium 4.6 mmol/L (3.3-5.1); Sodium 142 mmol/L (135-145)
== END 2023-01-28 18:23 | disposition home or self-care (01) ==
PROVIDERS: Physician Assistant; Emergency Provider Student in an Organized Health Care Education/Training Program
DX: L03.116 Cellulitis of left lower limb (principal); M25.572 Pain in left ankle and joints of left foot; F11.10 Opioid abuse, uncomplicated; Z79.899 Other long term (current) drug therapy
CPT/HCPCS: 36415; 73610; 80053; 83605; 83735; 85025; 85652; 86140; 87040; 99282; 99283

== ENCOUNTER 2023-02-05 22:56 | Emergency (ER) | payer OTHER, SELFPAY ==
[2023-02-06 00:46] VITALS: BP 162/94; PULSE 97; RESP 15; TEMP 37.1; O2SAT 94; BMI 25.1
--- NOTE | 2023-02-06 01:03 | ED.ALCOHOL ---
HPI - Alcohol General Chief Complaint: ETOH/Substance Use Stated Complaint: left leg numbness Time Seen by Provider: 02/06/23 01:03 Source: patient Mode of arrival: ambulatory Limitations: no limitations History of Present Illness HPI narrative: Patient's history of polysubstance abuse drinks alcohol, uses cocaine and uses heroin was here yesterday in today he comes as she was wet in the rain no active complaints at this time does not want any detox does not want any help Related Data Previous Rx's Medication Instructions Recorded cephalexin 500 mg capsule 500 mg PO TID #21 caps 11/16/21 doxycycline monohydrate 100 mg 100 mg PO BID #20 tabs 11/16/21 tablet ibuprofen 800 mg tablet 800 mg PO Q8H PRN pain #20 tabs 11/16/21 doxycycline monohydrate 100 mg 100 mg PO BID 7 days #14 tabs 11/25/21 tablet famotidine 20 mg tablet (Pepcid) 20 mg PO DAILY PRN abdominal 11/25/21 discomfort #30 tabs ondansetron 4 mg disintegrating 4 mg PO Q8H PRN nausea and 11/25/21 tablet vomiting #20 tabs acetaminophen 500 mg tablet 1,000 mg PO QID PRN fever or pain 11/27/21 (Tylenol Extra Strength) #14 tabs cephalexin 500 mg capsule 500 mg PO Q6H cellulitis 10 days 11/27/21 #40 caps fluconazole 150 mg tablet 150 mg PO Q3D 2 doses #2 tabs 11/27/21 (Diflucan) ibuprofen 800 mg tablet 800 mg PO Q8H PRN pain #14 tabs 11/27/21 sulfamethoxazole 800 1 tab PO BID 10 days #20 tabs 11/27/21 mg-trimethoprim 160 mg tablet (Bactrim DS) acetaminophen 500 mg tablet 1,000 mg PO QID PRN fever or pain 01/20/22 (Tylenol Extra Strength) #14 tabs cyclobenzaprine 10 mg tablet 10 mg PO Q8H PRN Muscle spasm #14 01/20/22 tabs acetaminophen 500 mg tablet 1,000 mg PO QID PRN fever or pain 12/16/22 (Tylenol Extra Strength) #14 tabs cyclobenzaprine 10 mg tablet 10 mg PO Q8H #14 tabs 12/16/22 acetaminophen 500 mg capsule 1,000 mg PO QID PRN pain #14 caps 01/28/23 cephalexin 500 mg capsule 500 mg PO QID #40 caps 01/28/23 doxycycline hyclate 100 mg capsule 100 mg PO BID #20 caps 01/28/23 Allergies Allergy/AdvReac Type Severity Reaction Status Date / Time No Known Allergies Allergy Verified 01/28/23 13:58 Review of Systems Review of Systems: Yes all other systems are reviewed and are negative [facility] Past Medical History Medical History Cellulitis Substance abuse in remission Social History Social History Patient Tobacco Use Status: Tobacco use Unknown Substance Use Type: Heroin Physical Exam ED Vital Signs: Vital Signs - 24 hr 02/06/23 00:46 Temperature 98.8 F Pulse Rate 97 Respiratory Rate 15 Blood Pressure 162/94 H Pulse Oximetry 94 Oxygen Delivery Method Room Air BMI result Body Mass Index 25.1 Appearance: Alert. Oriented X3. No acute distress. Eyes: PERRLA, No Nystagmus ENT: Pharynx normal. Oral Mucosa moist Neck: Normal inspection. Neck supple. CVS: Normal heart rate and rhythm. Pulses normal. Respiratory: No respiratory distress. Equal air entry bilateral, no wheezing/rales/rhonchi Abdomen: Soft and nontender. Bowel sounds are present, no mass palpable, no CVA tenderness Skin: Skin warm and dry. Normal skin color. Normal skin turgor. Extremities: No lower extremity edema. No calf tenderness Neuro: Oriented X 3. No motor deficit. No sensory deficit.No cerebellar signs , cranial nerves II-XII intact working in a steady gait Medical Decision Making Medical Decision Making [facility] Narrative: Patient alert oriented x3 walking steady gait with history of substance abuse refused to go to detox or need any help will discharge patient Discharge Plan Discharge Clinical Impression: Polysubstance abuse Patient Disposition: Home, Self-Care Instructions: Polysubstance Abuse (ED) Additional Instructions: Follow-up with detox Prescriptions: No Action doxycycline monohydrate 100 mg tablet 100 mg PO BID Qty: 20 0RF cephalexin 500 mg capsule 500 mg PO TID Qty: 21 0RF ibuprofen 800 mg tablet 800 mg PO Q8H PRN (Reason: pain) Qty: 20 0RF cyclobenzaprine 10 mg tablet 10 mg PO Q8H Qty: 14 0RF acetaminophen [Tylenol Extra Strength] 500 mg tablet 1,000 mg PO QID PRN (Reason: fever or pain) Qty: 14 0RF famotidine [Pepcid] 20 mg tablet 20 mg PO DAILY PRN (Reason: abdominal discomfort) Qty: 30 0RF doxycycline monohydrate 100 mg tablet 100 mg PO BID 7 Days Qty: 14 0RF ondansetron 4 mg tablet,disintegrating 4 mg PO Q8H PRN (Reason: nausea and vomiting) Qty: 20 0RF cephalexin 500 mg capsule 500 mg PO Q6H 10 Days Qty: 40 0RF sulfamethoxazole-trimethoprim [Bactrim DS] 800-160 mg tablet 1 tab PO BID 10 Days Qty: 20 0RF acetaminophen [Tylenol Extra Strength] 500 mg tablet 1,000 mg PO QID PRN (Reason: fever or pain) Qty: 14 0RF ibuprofen 800 mg tablet 800 mg PO Q8H PRN (Reason: pain) Qty: 14 0RF fluconazole [Diflucan] 150 mg tablet 150 mg PO Q3D Qty: 2 0RF acetaminophen [Tylenol Extra Strength] 500 mg tablet 1,000 mg PO QID PRN (Reason: fever or pain) Qty: 14 0RF cyclobenzaprine 10 mg tablet 10 mg PO Q8H PRN (Reason: Muscle spasm) Qty: 14 0RF doxycycline hyclate 100 mg capsule 100 mg PO BID Qty: 20 0RF cephalexin 500 mg capsule 500 mg PO QID Qty: 40 0RF acetaminophen 500 mg capsule 1,000 mg PO QID PRN (Reason: pain) Qty: 14 0RF
--- NOTE | 2023-02-06 01:24 | PC.NURSE ---
this RN brought pt back to 22H, pt reporting wanting to leave as soon as sitting down. This RN explained that pt will be seen by MD and a plan will be developed from there, pt cooperative with vitals. When this RN sat down, pt getting up to move around, this RN reminded to stay sitting to wait for the MD. Pt began pacing, requesting to leave again. This RN spoke with MD Wilson who saw patient. As soon as MD saw pt, pt began walking out of the ED. This RN attempted to have pt stop and receive d/c papers however pt continued to walk out about five minutes after leaving, pt reports to registration desk stating that she left belongings back in the ED. No belongings found in the ED where the patient was seated, nor the bathroom in which she used. Waiting room searched, no backpack found. Pt did not walk into ED with backpack and this RN told patient such. Patient accusing this RN, [employer] and security of stealing her bag. This RN assusred the patient that no bag had been stolen and the patient was not brought back to the main ED with a backpack, just a purse. Pt walked out of ED
--- NOTE | 2023-02-06 01:32 | PC.NURSE ---
late entry: pt walking with steady gait out of ed, no instability, speaking in clear full sentences, respirations even and unlabored, skin pwd, alert and oriented x4.
== END 2023-02-06 01:35 | disposition home or self-care (01) ==
PROVIDERS: Emergency Provider Internal Medicine
DX: F11.10 Opioid abuse, uncomplicated (principal); R20.0 Anesthesia of skin; Z79.899 Other long term (current) drug therapy
CPT/HCPCS: 99282; 99284

== ENCOUNTER 2023-05-09 22:04 | Emergency (ER) | payer OTHER, SELFPAY ==
[2023-05-09] VITALS (7 sets, daily range): BP systolic 157; BP diastolic 67; PULSE 93–138; RESP 12–28; O2SAT 91–94; BMI 20.2
[2023-05-09 22:18] LABS: Glucose, Whole Blood 85 mg/dL (60-115)
--- NOTE | 2023-05-09 22:27 | PC.NURSE ---
Pt presented to ER via EMS with substance use. EMS was called for an unresponsive republican by a dumpster at [facility]. Upon EMS arrival, pt was awake and alert. Uncooperative with very sporadic, flailing movements. EMS brought pt to Er where she was still uncooperative, yelling, and flailing her limbs. Pt began to strip in the hallway and resisted putting a gown on. Dr Singh at bedside verbal ordered 10mg zyprexa IM and 5mg versed IM. Pt was held by 2 points and meds were administered into the right deltoid. Pt was laid back in bed and fell asleep within a few minutes. Pt is on an O2 monitor, placed in 13h, near nurse's station, and pt will continue to be monitored.
--- NOTE | 2023-05-09 22:31 | ED_ITS ---
HPI - Psych General Chief Complaint: ETOH/Substance Use Stated Complaint: etoh Time Seen by Provider: 05/09/23 22:19 Source: patient and EMS Mode of arrival: EMS Limitations: other (agitated) History of Present Illness HPI Narrative: found unresponsive by a dumpster at [facility] patient was uncooperative and flailing had normal blood sugar admits to using a lot of crack cocaine today. very agitated on arrival throwing herself off stretcher had to be held by staff and then was still kicking and swinging out intermittently and in not directed but flailing she almost threw herself on the ground and kept stating I can't help it is the crack MD complaint: substance abuse Onset (ago): unknown Duration: constant History of same: Yes Relieving factors: none Exacerbating factors: drug use Context: recent drug abuse Associated psychiatric symptoms: none Associated symptoms: denies other symptoms Treatments prior to arrival: none Related Data Previous Rx's Medication Instructions Recorded cephalexin 500 mg capsule 500 mg PO TID #21 caps 11/16/21 doxycycline monohydrate 100 mg 100 mg PO BID #20 tabs 11/16/21 tablet ibuprofen 800 mg tablet 800 mg PO Q8H PRN pain #20 tabs 11/16/21 doxycycline monohydrate 100 mg 100 mg PO BID 7 days #14 tabs 11/25/21 tablet famotidine 20 mg tablet (Pepcid) 20 mg PO DAILY PRN abdominal 11/25/21 discomfort #30 tabs ondansetron 4 mg disintegrating 4 mg PO Q8H PRN nausea and 11/25/21 tablet vomiting #20 tabs acetaminophen 500 mg tablet 1,000 mg PO QID PRN fever or pain 11/27/21 (Tylenol Extra Strength) #14 tabs cephalexin 500 mg capsule 500 mg PO Q6H cellulitis 10 days 11/27/21 #40 caps fluconazole 150 mg tablet 150 mg PO Q3D 2 doses #2 tabs 11/27/21 (Diflucan) ibuprofen 800 mg tablet 800 mg PO Q8H PRN pain #14 tabs 11/27/21 sulfamethoxazole 800 1 tab PO BID 10 days #20 tabs 11/27/21 mg-trimethoprim 160 mg tablet (Bactrim DS) acetaminophen 500 mg tablet 1,000 mg PO QID PRN fever or pain 01/20/22 (Tylenol Extra Strength) #14 tabs cyclobenzaprine 10 mg tablet 10 mg PO Q8H PRN Muscle spasm #14 01/20/22 tabs acetaminophen 500 mg tablet 1,000 mg PO QID PRN fever or pain 12/16/22 (Tylenol Extra Strength) #14 tabs cyclobenzaprine 10 mg tablet 10 mg PO Q8H #14 tabs 12/16/22 acetaminophen 500 mg capsule 1,000 mg PO QID PRN pain #14 caps 01/28/23 cephalexin 500 mg capsule 500 mg PO QID #40 caps 01/28/23 doxycycline hyclate 100 mg capsule 100 mg PO BID #20 caps 01/28/23 Allergies Allergy/AdvReac Type Severity Reaction Status Date / Time No Known Allergies Allergy Verified 01/28/23 13:58 Review of Systems Review of Systems: ROS unable to be obtained due to agitation PMFSH Past Medical History Attestation statement: The following information was validated with the patient. Medical History Active substance abuse Cellulitis Social History Social History Alcohol intake: current Alcohol intake frequency: 3 or more drinks per day Patient Tobacco Use Status: Tobacco use Unknown Substance Use Type: Heroin Advance Directives: No Advance Directives Information Provided: No Physical Exam Vital Signs: Vital Signs: Last Vital Signs Pulse 93 05/09/23 23:38 Resp 20 05/09/23 23:38 BP 157/67 H 05/09/23 22:21 Pulse Ox 94 05/09/23 23:38 O2 Del Method Room Air 05/09/23 23:38 BMI result Body Mass Index 20.2 Appearance: Alert. states she was using drugs knows where she is but doesn't want to give her name. states she just needs medications to calm down and sleep Eyes: Pupils equal, round and reactive to light. ENT: Pharynx normal. atraumatic Neck: Normal inspection. Neck supple. CVS: tachycardic heart rate and rhythm. Pulses normal. Respiratory: No respiratory distress. Breath sounds normal. Abdomen: Soft and non-tender. Skin: Skin warm and dry. Normal skin color. Normal skin turgor. Extremities: No lower extremity edema. atraumatic compartments are soft and compressible Neuro: Oriented X 3. No motor deficit. No sensory deficit. Course Course Course Narrative: patient sleeping and much more calm post medications Reevaluation(s) Reevaluation #1: Patient placed in physician observation at 1152pm. The indication for observation is that the patient needs more time to see if her agitation improves from medications At this time the patient is more calm and VS are stable Medications Administered Discontinued Medications Generic Name Dose Route Start Last Admin Trade Name Freq PRN Reason Stop Dose Admin Midazolam HCl 5 mg 05/09/23 22:20 05/09/23 22:38 Midazolam Hcl/Pf 2 Mg/2 Ml Vial IM 05/09/23 22:21 5 mg ONCE ONE Administration Olanzapine 10 mg 05/09/23 22:20 05/09/23 22:38 Olanzapine 10 Mg Vial IM 05/09/23 22:21 10 mg STAT STA Administration Medical Decision Making Medical Decision Making [facility] Narrative: 43 yo female who reports she was using crack cocaine and fentanyl today she states she just wants medications to sleep but nothing else. she is very agitated and flailing she is a threat to herself and others at this time IM medications for and staff safety ordered. I offered labs but she will need to be more awake to consent there is no signs of trauma and no skin infection - she can be offered labs upon waking if VS unstable. Differential Diagnosis Differential Diagnoses: The differential diagnosis associated with the presentation includes substance abuse Lab Data [facility] Lab Attestation statement: I reviewed the patient's lab results. POC normal Labs: Lab Results 05/09/23 Range/Units 22:14 POC Glucose 85 (60-115) mg/dL External Record Review External record reviewed: Inpatient record Social Determinants Patient?s care significantly limited by Social Determinants of Health including: Inadequate housing and Problems related to primary support group Discharge Plan Discharge Clinical Impression: Crack cocaine use Patient Disposition: Still a Patient Prescriptions: No Action doxycycline monohydrate 100 mg tablet 100 mg PO BID Qty: 20 0RF cephalexin 500 mg capsule 500 mg PO TID Qty: 21 0RF ibuprofen 800 mg tablet 800 mg PO Q8H PRN (Reason: pain) Qty: 20 0RF cyclobenzaprine 10 mg tablet 10 mg PO Q8H Qty: 14 0RF acetaminophen [Tylenol Extra Strength] 500 mg tablet 1,000 mg PO QID PRN (Reason: fever or pain) Qty: 14 0RF famotidine [Pepcid] 20 mg tablet 20 mg PO DAILY PRN (Reason: abdominal discomfort) Qty: 30 0RF doxycycline monohydrate 100 mg tablet 100 mg PO BID 7 Days Qty: 14 0RF ondansetron 4 mg tablet,disintegrating 4 mg PO Q8H PRN (Reason: nausea and vomiting) Qty: 20 0RF cephalexin 500 mg capsule 500 mg PO Q6H 10 Days Qty: 40 0RF sulfamethoxazole-trimethoprim [Bactrim DS] 800-160 mg tablet 1 tab PO BID 10 Days Qty: 20 0RF acetaminophen [Tylenol Extra Strength] 500 mg tablet 1,000 mg PO QID PRN (Reason: fever or pain) Qty: 14 0RF ibuprofen 800 mg tablet 800 mg PO Q8H PRN (Reason: pain) Qty: 14 0RF fluconazole [Diflucan] 150 mg tablet 150 mg PO Q3D Qty: 2 0RF acetaminophen [Tylenol Extra Strength] 500 mg tablet 1,000 mg PO QID PRN (Reason: fever or pain) Qty: 14 0RF cyclobenzaprine 10 mg tablet 10 mg PO Q8H PRN (Reason: Muscle spasm) Qty: 14 0RF doxycycline hyclate 100 mg capsule 100 mg PO BID Qty: 20 0RF cephalexin 500 mg capsule 500 mg PO QID Qty: 40 0RF acetaminophen 500 mg capsule 1,000 mg PO QID PRN (Reason: pain) Qty: 14 0RF
[2023-05-09] MEDS: Midazolam HCl/PF 2 MG/2 ML VIAL 5 MG IM (22:38)
[2023-05-09] MEDS: OLANZapine 10 MG VIAL IM (22:38)
--- NOTE | 2023-05-10 02:36 | MHC.EDTECH ---
pt sleeping s/p chemical restraint. labs not to be completed until pt wakes up. clive hoskins
[2023-05-10 03:42] LABS: MANUAL DIFF FLAG NO
[2023-05-10 03:43] LABS: Basophils Percent Auto 0.3 % (0-2); Hematocrit 33.6 % (37.0-47.0); Hemoglobin 11.1 g/dl (12.0-16.0); Imm Gran Abs Auto 0.05 X10*3/uL (0.00-0.03); Imm Gran Pct Auto 0.5 % (0.0-0.4); Lymphocytes Percent Auto 9.1 % (20-40); Mean Corpuscular Volume 90.8 fL (80.0-98.0); Mean Platelet Volume 10.2 fL (9.4-12.3); Monocytes Absolute Auto 0.6 X10*3/uL (0.1-1.2); Monocytes Percent Auto 5.8 % (2-11); Neutrophils Percent Auto 84.3 % (45-73); Platelet Count 248 X10*3/uL (160-400); Red Cell Distribution Width 12.9 % (11.0-16.0); White Blood Count 10.6 X10*3/uL (4.8-10.8)
[2023-05-10 04:18] LABS: Alanine Aminotransferase 27 U/L (0-31); Albumin Level 3.7 g/dL (3.5-5.0); Alkaline Phosphatase 72 U/L (39-117); Anion Gap 17 (12-20); Aspartate Amino Transferase 31 U/L (5-31); Bilirubin Direct 0.3 mg/dL (0.0-0.5); Bilirubin Total 0.7 mg/dL (0.0-1.0); Blood Urea Nitrogen 16 mg/dL (9-16); Calcium 9.3 mg/dL (8.4-10.2); Carbon Dioxide 21 mmol/L (22-29); Chloride 109 mmol/L (96-108); Creatinine Clr Calc Pharmacy 73.6; Estimated Glomerular Filt Rate > 60; Ethanol < 10 mg/dL; Glucose Random 90 mg/dL (60-115); HCG Quantitative < 2 mIU/mL; Potassium 3.2 mmol/L (3.3-5.1); Sodium 144 mmol/L (135-145); Total Protein 7.5 g/dL (6.5-8.0)
[2023-05-10 06:00] VITALS: PULSE 72; RESP 12; O2SAT 95
[2023-05-10 07:26] VITALS: BP 99/64; PULSE 59; RESP 16; TEMP 37.1; O2SAT 97
[2023-05-10 11:54] VITALS: BP 112/73; PULSE 56; RESP 16; TEMP 36.9; O2SAT 100
--- NOTE | 2023-05-10 14:01 | PC.NURSE ---
PT A&OX4 AT THIS TIME, EATING AND DRINKING. CARE TEAM INFORMING THAT RECOVERY TEAM IS NOT HERE TODAY, CONSULT HAD BEEN IN FOR SUBSTANCE USE. PT DENIES SI.HI AT THIS TIME, BEHAVIOUR HAS BEEN NONCONCERNING. PT LOBBYING FOR METHADONE DOSE, SHE TYPICALLY DOSES AT [facility], THOUGH THEY ARE CLOSED TODAY, UNABLE TO REACH FOR LAST DOSE VERIFICATION.
== END 2023-05-10 14:57 | disposition home or self-care (01) ==
PROVIDERS: Emergency Provider Emergency Medicine
DX: F19.10 Other psychoactive substance abuse, uncomplicated (principal); R45.1 Restlessness and agitation; Z79.899 Other long term (current) drug therapy
CPT/HCPCS: 36415; 80048; 80076; 80307; 82947; 84702; 85025; 96372; 99285; J2250

== ENCOUNTER 2023-05-25 01:03 | Emergency (ER) | payer OTHER, SELFPAY ==
[2023-05-25] VITALS (9 sets, daily range): BP systolic 100–134; BP diastolic 66–77; PULSE 52–88; RESP 16–19; TEMP 36.7–37; O2SAT 94–99; BMI 22.4
[2023-05-25 01:34] LABS: Appearance Urine Clear; Color Urine Yellow; Glucose Urine UA Negative (Negative); Leukocyte Esterase Urine Large (3+) (Negative); Nitrite Urine Negative (Negative); Specific Gravity - Urine <= 1.005 (1.005-1.025); UMIC TRIGGER UACC YES; Urine Blood Negative (Negative); Urine Ketones Negative (Negative); Urine Protein Negative (Neg-Trace)
[2023-05-25 01:35] LABS: UPreg QC Valid YES; Urine Pregnancy NEGATIVE (NEGATIVE)
--- NOTE | 2023-05-25 01:36 | PC.NURSE ---
Pt lethargic but responds to verbal commands. Pt changed in hospital attire. Pt assisted to bathroom and urine sample collected. pt placed on bedside monitor. Provider in with pt.
[2023-05-25 01:39] LABS: Bacteria Urine Trace (None Seen); Hyaline Casts Urine 0-2 /LPF (0-2); RBC Urine 0-2 /HPF (0-2); UACC Culture Trigger YES; WBC Urine >50 /HPF (0-5)
[2023-05-25 01:50] LABS: Fentanyl, urine POSITIVE (Not Detect)
[2023-05-25 01:57] LABS: Amphetamine Screen Urine Not Detected (Not Detect); Barbiturates, Urine Not Detected (Not Detect); Benzodiazepines Screen Urine Not Detected (Not Detect); Cannabinoid Screen Urine Not Detected (Not Detect); Cocaine Screen Urine POSITIVE (Not Detect); Opiate Screen Urine POSITIVE (Not Detect); Phencyclidine Screen Urine Not Detected (Not Detect)
--- NOTE | 2023-05-25 02:52 | ED_ITS ---
HPI - General Adult General Chief complaint: ETOH/Substance Use Stated complaint: Drug Use Time Seen by Provider: 05/25/23 01:16 Source: patient and EMS Mode of arrival: EMS Limitations: no limitations History of Present Illness HPI narrative: A 43-year-old female was found unresponsive in history patient admit to using a lot of crack cocaine today declined using any heroin. Patient did not need Narcan by EMS patient is easily arousable maintaining stable vital sign, patient declined SI or depression. Related Data Previous Rx's Medication Instructions Recorded cephalexin 500 mg capsule 500 mg PO TID #21 caps 11/16/21 doxycycline monohydrate 100 mg 100 mg PO BID #20 tabs 11/16/21 tablet ibuprofen 800 mg tablet 800 mg PO Q8H PRN pain #20 tabs 11/16/21 doxycycline monohydrate 100 mg 100 mg PO BID 7 days #14 tabs 11/25/21 tablet famotidine 20 mg tablet (Pepcid) 20 mg PO DAILY PRN abdominal 11/25/21 discomfort #30 tabs ondansetron 4 mg disintegrating 4 mg PO Q8H PRN nausea and 11/25/21 tablet vomiting #20 tabs acetaminophen 500 mg tablet 1,000 mg PO QID PRN fever or pain 11/27/21 (Tylenol Extra Strength) #14 tabs cephalexin 500 mg capsule 500 mg PO Q6H cellulitis 10 days 11/27/21 #40 caps fluconazole 150 mg tablet 150 mg PO Q3D 2 doses #2 tabs 11/27/21 (Diflucan) ibuprofen 800 mg tablet 800 mg PO Q8H PRN pain #14 tabs 11/27/21 sulfamethoxazole 800 1 tab PO BID 10 days #20 tabs 11/27/21 mg-trimethoprim 160 mg tablet (Bactrim DS) acetaminophen 500 mg tablet 1,000 mg PO QID PRN fever or pain 01/20/22 (Tylenol Extra Strength) #14 tabs cyclobenzaprine 10 mg tablet 10 mg PO Q8H PRN Muscle spasm #14 01/20/22 tabs acetaminophen 500 mg tablet 1,000 mg PO QID PRN fever or pain 12/16/22 (Tylenol Extra Strength) #14 tabs cyclobenzaprine 10 mg tablet 10 mg PO Q8H #14 tabs 12/16/22 acetaminophen 500 mg capsule 1,000 mg PO QID PRN pain #14 caps 01/28/23 cephalexin 500 mg capsule 500 mg PO QID #40 caps 01/28/23 doxycycline hyclate 100 mg capsule 100 mg PO BID #20 caps 01/28/23 Allergies Allergy/AdvReac Type Severity Reaction Status Date / Time No Known Allergies Allergy Verified 01/28/23 13:58 Review of Systems Review of Systems: All other systems are reviewed and are negative Constitutional: Reports as per HPI and Reports no additional constitutional complaints Eyes: Reports as per HPI and Reports no additional eye complaints Reports system reviewed and no additional complaints, except as documented Cardiovascular: Reports as per HPI and Reports no additional cardiovascular complaints Respiratory: Reports as per HPI and Reports no additional respiratory complaints Gastrointestinal: Reports as per HPI and Reports no additional gastrointestinal complaints Genitourinary: Reports no additional female genitourinary complaints Musculoskeletal: Reports no additional musculoskeletal complaints Skin/Breast: Reports system reviewed and no additional complaints, except as docu Psychiatric: Reports no additional psychiatric complaints Endocrine: Reports no additional endocrine complaints Hematologic/Lymphatic: Reports no additional hematologic/lymphatic complaints Allergic/Immunologic: Reports no additional allergic/immunologic complaints Reports system reviewed and no additional complaints, except as documented and Reports Abnormal speech present [facility] Past Medical History Medical History Active substance abuse Cellulitis Social History Social History Alcohol intake: current Alcohol intake frequency: 3 or more drinks per day Patient Tobacco Use Status: Tobacco use Unknown Smoked in Last 30 Days: No Use of substances other than those prescribed or required for medical reasons: Yes Substance Use Type: Crack/Cocaine Advance Directives: No Advance Directives Information Provided: Yes Physical Exam ED Vital Signs: Vital Signs - 24 hr 05/25/23 01:26 05/25/23 01:29 05/25/23 04:50 Temperature 98.6 F 98.6 F Pulse Rate 70 73 74 Respiratory Rate 17 18 19 Blood Pressure 100/69 100/69 112/69 Pulse Oximetry 99 99 94 Oxygen Delivery Method Room Air Room Air Room Air BMI result Body Mass Index 22.4 Vital signs have been reviewed as appeared to be correct. Blood pressure normal. Heart rate normal. Respiration rate normal. Temperature normal. Oxygen saturation normal. Appearance: Alert. Oriented X3. No acute distress. Head: Normal external exam. Normocephalic. Atraumatic. No Dominique signs noted. No raccoon eyes noted Eyes: PERRLA. EOMI. Conjunctiva and sclera normal. Eyelids normal. ENT: TM's Normal. Pharynx normal. Uvula midline. Moist mucous membranes. No trismus noted. No drooling noted. No muffled voice noted. Neck: Normal inspection. Neck supple. FROM. No adenopathy. Thyroid Normal. No meningeal signs. No neck mass noted. CVS: Normal heart rate and rhythm. Heart sound normal. No murmurs noted. Pulses normal throughout. Respiratory: No respiratory distress. Painless inspiration. Breath sounds normal. No wheezes/rales/rhonchi noted. Chest nontender. No accessory muscle usage noted or decreased air movement noted. Abdomen: Soft and nontender. Bowel sounds normal in all 4 quadrants. No distention noted. No organomegaly noted. No visible injury noted. Back: No CVA tenderness. Full range of motion noted. Skin: Skin warm and dry. Normal skin color. Normal skin turgor. No rashes/lesions/lacerations noted. Extremities: No lower extremity edema. Extremities exhibit normal range of motion. Extremities nontender. Neuro: Oriented X 3. Cranial nerve exam: II-XII are grossly intact No motor deficit. No sensory deficit. Reflexes normal. Course Course Course Narrative: Known history of polysubstance abuse brought in after found in the street patient currently is homeless, no SI or HI will discharge when she is sober. Reevaluation(s) Reevaluation #1: Patient now is awake, sober, requesting detox program will keep the patient for physician observation and consult care team for placement. Time: 06:42 Medical Decision Making Differential Diagnosis Differential Diagnoses: The differential diagnosis associated with the presentation includes (OD, substance abuse, homeless, tiredness.) Admission/Observation Consideration of admission/observation: Escalation of care including admission/observation considered Lab Data MDM Lab Attestation statement: I reviewed the patient's lab results. Labs: Lab Results 05/25/23 05/25/23 05/25/23 Range/Units 01:27 01:27 01:27 Urine Color Yellow Urine Appearance Clear Urine pH 6.0 (5.0-9.0) Ur Specific Cullen <= 1.005 (1.005-1.025) Urine Protein Negative (Neg-Trace) mg/dL Urine Glucose (UA) Negative (Negative) mg/dL Urine Ketones Negative (Negative) mg/dL Urine Blood Negative (Negative) Urine Nitrite Negative (Negative) Ur Leukocyte Esterase Large (3+) H (Negative) Urine RBC 0-2 (0-2) /HPF Urine WBC >50 H (0-5) /HPF Ur Squamous Epith Cells 3-5 (0-2) /HPF Urine Bacteria Trace (None Seen) Hyaline Casts 0-2 (0-2) /LPF Urine Test NEGATIVE (NEGATIVE) Urine Opiates Screen POSITIVE H (Not Detect) Urine Fentanyl Screen POSITIVE H (Not Detect) Ur Barbiturates Screen Not Detected (Not Detect) Ur Phencyclidine Scrn Not Detected (Not Detect) Ur Amphetamines Screen Not Detected (Not Detect) U Benzodiazepines Scrn Not Detected (Not Detect) Urine Cocaine Screen POSITIVE H (Not Detect) U Marijuana (THC) Screen Not Detected (Not Detect) Discharge Plan Discharge Clinical Impression: Substance abuse Patient Disposition: Still a Patient Instructions: Polysubstance Abuse (ED) Prescriptions: No Action doxycycline monohydrate 100 mg tablet 100 mg PO BID Qty: 20 0RF cephalexin 500 mg capsule 500 mg PO TID Qty: 21 0RF ibuprofen 800 mg tablet 800 mg PO Q8H PRN (Reason: pain) Qty: 20 0RF cyclobenzaprine 10 mg tablet 10 mg PO Q8H Qty: 14 0RF acetaminophen [Tylenol Extra Strength] 500 mg tablet 1,000 mg PO QID PRN (Reason: fever or pain) Qty: 14 0RF famotidine [Pepcid] 20 mg tablet 20 mg PO DAILY PRN (Reason: abdominal discomfort) Qty: 30 0RF doxycycline monohydrate 100 mg tablet 100 mg PO BID 7 Days Qty: 14 0RF ondansetron 4 mg tablet,disintegrating 4 mg PO Q8H PRN (Reason: nausea and vomiting) Qty: 20 0RF cephalexin 500 mg capsule 500 mg PO Q6H 10 Days Qty: 40 0RF sulfamethoxazole-trimethoprim [Bactrim DS] 800-160 mg tablet 1 tab PO BID 10 Days Qty: 20 0RF acetaminophen [Tylenol Extra Strength] 500 mg tablet 1,000 mg PO QID PRN (Reason: fever or pain) Qty: 14 0RF ibuprofen 800 mg tablet 800 mg PO Q8H PRN (Reason: pain) Qty: 14 0RF fluconazole [Diflucan] 150 mg tablet 150 mg PO Q3D Qty: 2 0RF acetaminophen [Tylenol Extra Strength] 500 mg tablet 1,000 mg PO QID PRN (Reason: fever or pain) Qty: 14 0RF cyclobenzaprine 10 mg tablet 10 mg PO Q8H PRN (Reason: Muscle spasm) Qty: 14 0RF doxycycline hyclate 100 mg capsule 100 mg PO BID Qty: 20 0RF cephalexin 500 mg capsule 500 mg PO QID Qty: 40 0RF acetaminophen 500 mg capsule 1,000 mg PO QID PRN (Reason: pain) Qty: 14 0RF
--- NOTE | 2023-05-25 06:42 | PC.NURSE ---
Pt up for d/c and requested to speak to provider Louis regarding detox. Provider aware, and in with pt. plan of care ongoing.
--- NOTE | 2023-05-25 06:55 | PC.NURSE ---
Report/hand off given to GIOVANNA benitez.
--- NOTE | 2023-05-25 09:14 | MHC.RECOVRN ---
Attempt made to make contact with pt, pt noted to be sleeping deeply upon entrance to room. RR reg and even, pt rousable to voice with some difficulty. Pt requesting crackers, provided, and fell right back asleep. Will re-attempt contact when pt is more alert.
--- NOTE | 2023-05-25 10:08 | PC.NURSE ---
Methadone dose verified with [facility], 135mg last given yesterday at 7:37am
--- NOTE | 2023-05-25 10:28 | HE.PHANOTE ---
RE: METHADONE Patients verification was received by pharmacy, last doses at 135 mg on 05/24/23 with [facility]
[2023-05-25] MEDS: methADONE HCl 20 MG/2 ML ORAL.CONC 135 MG PO (11:10)
--- NOTE | 2023-05-25 11:14 | PC.NURSE ---
Alert and oriented, methadone given per order, food and fluids provided per patients request.
--- NOTE | 2023-05-25 12:49 | MHC.RECOVSUP ---
Addendum entered by Ivan Gonzalez 05/25/23 14:40: ATS bed search exhausted, pt provided resources to follow up from the community. Original Note: Met with pt in ED19 who is here for KRISTOPHER. Pt reports taking about $200 of Fentanyl and cocaine intravenously a day with last use yesterday. Pt has no history of OD and was last in ATS at [facility] in January. Pt is currently on Methadone with [facility] and is interested in ATS. Pt has no other questions or concerns at this time, ATS bed search in process.
--- NOTE | 2023-05-25 15:08 | PC.NURSE ---
Discharge plan reviewed with patient, patient argumentative stating she has no where to go. Provided with phone to call friend.
== END 2023-05-25 15:21 | disposition home or self-care (01) ==
PROVIDERS: Emergency Provider Emergency Medicine
DX: F14.19 Cocaine abuse with unspecified cocaine-induced disorder (principal); F11.19 Opioid abuse with unspecified opioid-induced disorder; Z79.899 Other long term (current) drug therapy
CPT/HCPCS: 80307; 81001; 81025; 87086; 99284; 99285

== ENCOUNTER 2023-05-30 08:36 | Emergency (ER) | payer OTHER, SELFPAY ==
[2023-05-30 08:46] VITALS: BP 110/63; BP 112/78; PULSE 67; PULSE 79; RESP 16; TEMP 36.9; O2SAT 96; O2SAT 97; BMI 19.7
--- NOTE | 2023-05-30 09:01 | ED_ITS ---
HPI - General Adult General Chief complaint: ETOH/Substance Use Stated complaint: SEEKING DETOX PER EMS Time Seen by Provider: 05/30/23 08:51 Source: patient Mode of arrival: EMS Limitations: no limitations History of Present Illness HPI narrative: 43 yo female with PMHx of polysubstance abuse, alcohol use d/o, presenting to the ED today via EMS requesting methadone dose, pt states last dose 05/28/23 135 mg at [facility]. She reports being denied her methadon dose today d/t high etoh level vs appearing intoxicated. Patient reports they just wouldn't give it to me. Admits to crack cocaine use and etoh consumption, last took a shot of etoh 9 hours ago. States she is tired & hasn't slept in 2 days d/t not having a place to sleep. Seeking detox. Denies SI/HI. complaint: wants methadone dose Relieving factors: none Exacerbating factors: none Associated symptoms: other (insomnia) Treatments prior to arrival: none Related Data Home Medications Medication Instructions Recorded Confirmed methadone 10 mg/mL oral 135 mg PO DAILY 05/30/23 05/30/23 concentrate (Methadone Intensol) Previous Rx's Medication Instructions Recorded cephalexin 500 mg capsule 500 mg PO TID #21 caps 11/16/21 doxycycline monohydrate 100 mg 100 mg PO BID #20 tabs 11/16/21 tablet ibuprofen 800 mg tablet 800 mg PO Q8H PRN pain #20 tabs 11/16/21 doxycycline monohydrate 100 mg 100 mg PO BID 7 days #14 tabs 11/25/21 tablet famotidine 20 mg tablet (Pepcid) 20 mg PO DAILY PRN abdominal 11/25/21 discomfort #30 tabs ondansetron 4 mg disintegrating 4 mg PO Q8H PRN nausea and 11/25/21 tablet vomiting #20 tabs acetaminophen 500 mg tablet 1,000 mg PO QID PRN fever or pain 11/27/21 (Tylenol Extra Strength) #14 tabs cephalexin 500 mg capsule 500 mg PO Q6H cellulitis 10 days 11/27/21 #40 caps fluconazole 150 mg tablet 150 mg PO Q3D 2 doses #2 tabs 11/27/21 (Diflucan) ibuprofen 800 mg tablet 800 mg PO Q8H PRN pain #14 tabs 11/27/21 sulfamethoxazole 800 1 tab PO BID 10 days #20 tabs 11/27/21 mg-trimethoprim 160 mg tablet (Bactrim DS) acetaminophen 500 mg tablet 1,000 mg PO QID PRN fever or pain 01/20/22 (Tylenol Extra Strength) #14 tabs cyclobenzaprine 10 mg tablet 10 mg PO Q8H PRN Muscle spasm #14 01/20/22 tabs acetaminophen 500 mg tablet 1,000 mg PO QID PRN fever or pain 12/16/22 (Tylenol Extra Strength) #14 tabs cyclobenzaprine 10 mg tablet 10 mg PO Q8H #14 tabs 12/16/22 acetaminophen 500 mg capsule 1,000 mg PO QID PRN pain #14 caps 01/28/23 cephalexin 500 mg capsule 500 mg PO QID #40 caps 01/28/23 doxycycline hyclate 100 mg capsule 100 mg PO BID #20 caps 01/28/23 Allergies Allergy/AdvReac Type Severity Reaction Status Date / Time No Known Allergies Allergy Verified 01/28/23 13:58 Review of Systems Review of Systems: Yes all other systems are reviewed and are negative [facility] Past Medical History Attestation statement: The following information was validated with the patient. Source: old records reviewed and nursing notes reviewed Medical History Active substance abuse Cellulitis Social History Social History Alcohol intake: current Alcohol intake frequency: 3 or more drinks per day Alcohol type: hard liquor Patient Tobacco Use Status: Tobacco use Unknown Smoked in Last 30 Days: Yes Use of substances other than those prescribed or required for medical reasons: Refusing to respond Substance Use Type: Crack/Cocaine Advance Directives: No Physical Exam ED Vital Signs: Vital Signs - 24 hr 05/30/23 08:46 05/30/23 10:04 05/30/23 12:04 Temperature 98.4 F 98.5 F Pulse Rate 79 70 61 Respiratory Rate 16 14 19 Blood Pressure 110/63 105/71 100/56 L Pulse Oximetry 96 98 97 Oxygen Delivery Method Room Air Room Air Room Air BMI result Body Mass Index 19.7 Appearance: Lethargic, disheveled. Oriented X3. No acute distress. Head: normocephalic, atraumatic. Eyes: Pupils pinpoint. equal, round ENT: Pharynx normal. No tonsillar swelling or exudate. No dentition. Neck: Normal inspection. Neck supple. CVS: Normal heart rate and rhythm. Pulses normal. Respiratory: No respiratory distress. Breath sounds normal. Abdomen: Soft and nontender. +BS x4 Skin: Skin warm and dry. Normal skin color. Normal skin turgor. No rashes. Extremities: No lower extremity edema. No joint swelling. Neuro/psych: Lethargic, briefly arouses to voice but falls back asleep quickly. Oriented X 3. grossly nonfocal. CN II-XII intact. Course Reevaluation(s) Reevaluation #1: Physician observation started at this time. Patient with a negative alcohol level. She is lethargic, pinpoint pupils. No evidence of active opiate withdrawal at this time. Suspect recent heroin use. Looking to verify methadone dosing with her [facility] and clinic however unable to contact them per nursing. Per documentation here it appears that she had her last dose of methadone was given here on 05/25/2023 of 135 mg. Will continue to monitor and re-evaluate once more awake. Time: 10:24 Reevaluation #2: Em from [facility] came to evaluate the patient however she was too lethargic and unable to engage in interview. They will be back later this afternoon for re- evaluation. Time: 11:15 Medical Decision Making Medical Decision Making [facility] Narrative: 43 yo female with PMHx of polysubstance abuse, alcohol use d/o, presenting to the ED today via EMS requesting methadone dose, pt states last dose 05/28/23 135 mg at [facility]. she is very lethargic and appears to be under the influence of heroin will not give methadone at this time need to confirm dose last given patient placed in physician obs for now. etoh negative Differential Diagnosis Differential Diagnoses: The differential diagnosis associated with the presentation includes polysubstance use, acute alcohol intoxication, opiate withdrawl, etoh withdrawal, metabolic encephalopathy Admission/Observation Consideration of admission/observation: Escalation of care including admission/observation considered AMS in polysubstance user Consult Healthcare Provider Management of the patient was discussed with: Behavioral Health Provider Lab Data [facility] Lab Attestation statement: I reviewed the patient's lab results. 05/30/23 09:23 05/30/23 09:23 Labs: Lab Results 05/30/23 05/30/23 Range/Units 09:23 09:23 WBC 9.3 (4.8-10.8) X10*3/uL RBC 3.77 L (4.20-5.50) X10*6/uL Hgb 11.0 L (12.0-16.0) g/dl Hct 34.3 L (37.0-47.0) % MCV 91.0 (80.0-98.0) fL MCH 29.2 (27.0-33.0) pg MCHC 32.1 (31.0-35.0) g/dl RDW 12.4 (11.0-16.0) % Plt Count 271 (160-400) X10*3/uL MPV 10.1 (9.4-12.3) fL Immature Gran % (Auto) 0.3 (0.0-0.4) % Neut % (Auto) 85.1 H (45-73) % Lymph % (Auto) 9.0 L (20-40) % Lyman % (Auto) 4.9 (2-11) % Eos % (Auto) 0.3 (0-4) % Baso % (Auto) 0.4 (0-2) % Lymph # (Auto) 0.8 L (1.2-4.9) X10*3/uL Lyman # (Auto) 0.5 (0.1-1.2) X10*3/uL Eos # (Auto) 0.0 (0.0-0.4) X10*3/uL Baso # (Auto) 0.0 (0.0-0.2) X10*3/uL Abs Immat Gran (auto) 0.03 (0.00-0.03) X10*3/uL Absolute Neuts (auto) 7.9 (2.0-8.3) x10*3/uL Absolute Nucleated RBC 0.000 (0.0-0.012) X10*3/uL Nucleated RBC % (auto) 0.0 (0.0-0.2) /100WBC Sodium 137 (135-145) mmol/L Potassium 3.7 (3.3-5.1) mmol/L Chloride 102 (96-108) mmol/L Carbon Dioxide 27 (22-29) mmol/L Anion Gap 12 (12-20) BUN 12 (9-16) mg/dL Creatinine 0.71 (0.5-1.4) mg/dL Estim Creat Clear Calc 96.9 Estimated GFR > 60 Random Glucose 80 (60-115) mg/dL Calcium 9.4 (8.4-10.2) mg/dL Magnesium 1.7 (1.6-2.6) mg/dL Total Bilirubin 0.6 (0.0-1.0) mg/dL Direct Bilirubin 0.3 (0.0-0.5) mg/dL AST 19 (5-31) U/L ALT 16 (0-31) U/L Alkaline Phosphatase 75 (39-117) U/L Total Protein 7.8 (6.5-8.0) g/dL Albumin 3.5 (3.5-5.0) g/dL Ethyl Alcohol < 10 mg/dL Independent Historian Clinical information obtained from an independent historian. History obtained from or confirmed by: EMS External Record Review External record reviewed: Outpatient record, Prior outpatient labs and Prior outpatient radiology Tests considered The following testing was considered but not selected: considered CT head given AMS Prescription Management I considered prescription management with: Other (methadone) Chronic Conditions Patient?s care impacted by: Other (polysubstance abuse) Social Determinants Patient?s care significantly limited by Social Determinants of Health including: Inadequate housing, Problems related to primary support group and Other Social Determinant of Health Critical Care Time Critical Care Time Critical Care Time: No Discharge Plan Discharge Clinical Impression: Opioid use disorder, Polysubstance abuse Patient Disposition: Home, Self-Care Instructions: Opioid Use Disorder (ED) Additional Instructions: you were given 135 mg of methadone today, 05/30/23 do not use heroin, it can kill you do not drink alcohol If you develop new or worsening symptoms call 911 or come back to the ER for further evaluation. Prescriptions: No Action doxycycline monohydrate 100 mg tablet 100 mg PO BID Qty: 20 0RF cephalexin 500 mg capsule 500 mg PO TID Qty: 21 0RF ibuprofen 800 mg tablet 800 mg PO Q8H PRN (Reason: pain) Qty: 20 0RF cyclobenzaprine 10 mg tablet 10 mg PO Q8H Qty: 14 0RF acetaminophen [Tylenol Extra Strength] 500 mg tablet 1,000 mg PO QID PRN (Reason: fever or pain) Qty: 14 0RF famotidine [Pepcid] 20 mg tablet 20 mg PO DAILY PRN (Reason: abdominal discomfort) Qty: 30 0RF doxycycline monohydrate 100 mg tablet 100 mg PO BID 7 Days Qty: 14 0RF ondansetron 4 mg tablet,disintegrating 4 mg PO Q8H PRN (Reason: nausea and vomiting) Qty: 20 0RF cephalexin 500 mg capsule 500 mg PO Q6H 10 Days Qty: 40 0RF sulfamethoxazole-trimethoprim [Bactrim DS] 800-160 mg tablet 1 tab PO BID 10 Days Qty: 20 0RF acetaminophen [Tylenol Extra Strength] 500 mg tablet 1,000 mg PO QID PRN (Reason: fever or pain) Qty: 14 0RF ibuprofen 800 mg tablet 800 mg PO Q8H PRN (Reason: pain) Qty: 14 0RF fluconazole [Diflucan] 150 mg tablet 150 mg PO Q3D Qty: 2 0RF acetaminophen [Tylenol Extra Strength] 500 mg tablet 1,000 mg PO QID PRN (Reason: fever or pain) Qty: 14 0RF cyclobenzaprine 10 mg tablet 10 mg PO Q8H PRN (Reason: Muscle spasm) Qty: 14 0RF doxycycline hyclate 100 mg capsule 100 mg PO BID Qty: 20 0RF cephalexin 500 mg capsule 500 mg PO QID Qty: 40 0RF acetaminophen 500 mg capsule 1,000 mg PO QID PRN (Reason: pain) Qty: 14 0RF methadone [Methadone Intensol] 10 mg/mL Concentrate 135 mg PO DAILY
--- NOTE | 2023-05-30 09:19 | PC.NURSE ---
pt axox3, respirations even and unlabored, sats 96% RA, nsr on monitor 76 bpm, skin wpd. ciwa 1. pt arrived via ems seeking detox; denied methadone dose at clinic this am d/t high alcohol level; pt states last had a shot at midnight today. PA to bedside pt admits to using cocaine. pt reports last methadone dose 05/28/23 at [facility]; closed at this time. awaiting further orders; call lerma within reach.
[2023-05-30 09:27] LABS: MANUAL DIFF FLAG NO
[2023-05-30 09:40] LABS: Basophils Percent Auto 0.4 % (0-2); Eosinophils Percent Auto 0.3 % (0-4); Hematocrit 34.3 % (37.0-47.0); Imm Gran Abs Auto 0.03 X10*3/uL (0.00-0.03); Imm Gran Pct Auto 0.3 % (0.0-0.4); Lymphocytes Absolute Auto 0.8 X10*3/uL (1.2-4.9); Mean Corpuscular HGB Conc 32.1 g/dl (31.0-35.0); Mean Corpuscular Hemoglobin 29.2 pg (27.0-33.0); Mean Platelet Volume 10.1 fL (9.4-12.3); Monocytes Absolute Auto 0.5 X10*3/uL (0.1-1.2); Monocytes Percent Auto 4.9 % (2-11); Neutrophils Absolute Auto 7.9 x10*3/uL (2.0-8.3); Neutrophils Percent Auto 85.1 % (45-73); Platelet Count 271 X10*3/uL (160-400); Red Blood Count 3.77 X10*6/uL (4.20-5.50); Red Cell Distribution Width 12.4 % (11.0-16.0); White Blood Count 9.3 X10*3/uL (4.8-10.8)
[2023-05-30 09:50] LABS: Alanine Aminotransferase 16 U/L (0-31); Albumin Level 3.5 g/dL (3.5-5.0); Alkaline Phosphatase 75 U/L (39-117); Anion Gap 12 (12-20); Aspartate Amino Transferase 19 U/L (5-31); Bilirubin Direct 0.3 mg/dL (0.0-0.5); Bilirubin Total 0.6 mg/dL (0.0-1.0); Blood Urea Nitrogen 12 mg/dL (9-16); Calcium 9.4 mg/dL (8.4-10.2); Carbon Dioxide 27 mmol/L (22-29); Chloride 102 mmol/L (96-108); Creatinine Clr Calc Pharmacy 96.9; Estimated Glomerular Filt Rate > 60; Ethanol < 10 mg/dL; Glucose Random 80 mg/dL (60-115); Magnesium 1.7 mg/dL (1.6-2.6); Potassium 3.7 mmol/L (3.3-5.1); Sodium 137 mmol/L (135-145); Total Protein 7.8 g/dL (6.5-8.0)
[2023-05-30 10:04] VITALS: BP 105/71; PULSE 70; RESP 14; TEMP 36.9; O2SAT 98
--- NOTE | 2023-05-30 11:23 | MHC.RECOVRN ---
This bond underwriter met with patient after receiving recovery consult. Pt presented to ED seeking detox and missed MTD dose due to intoxication. This bond underwriter attempted to meet with pt, pt unable to answer t/w questions, t/w to return to the bedside when pt more alert. [facility]
--- NOTE | 2023-05-30 11:23 | PC.NURSE ---
multiple attempts to reach [facility] meth[facility]one [facility]. unable to reach clinic to verify methadone dose.
[2023-05-30 12:04] VITALS: BP 100/56; PULSE 61; RESP 19; O2SAT 97
--- NOTE | 2023-05-30 13:21 | PC.NURSE ---
report called to behavioral pod RN.
--- NOTE | 2023-05-30 13:39 | MHC.RECOVRN ---
This blog writer met with patient, patient presented to ED seeking detox. Pt was sitting up in bed, eating, alert, oriented. Pt requesting detox, MTD dose. This blog writer reviewed detox referral process with patient, patient verbalized understanding. This blog writer completed MTD verification, faxed to [facility]. Last dose [facility] OTP, 05/28/23, 6:17, received 135mg. This blog writer to begin detox bedsearch process.
--- NOTE | 2023-05-30 14:45 | HE.PHANOTE ---
Re: methadone verification last dose 135 mg given 05/28/23 at [facility] verified by Park Duarte 05/30/23
--- NOTE | 2023-05-30 14:53 | PC.NURSE ---
holding methadone until pt is awake.
--- NOTE | 2023-05-30 15:04 | MHC.RECOVRN ---
This keno writer/runner went to meet with patient, unable to wake patient up. This keno writer/runner reviewed plan with Provider and ED POD RN Alyse. Pt when awake, alert, mild-moderate opiate withdrawal, to receive MTD dose, which has been verified and ordered. Pt to be given last dose letter and folder of recovery supports including ATS list and d/c. No female detox beds open at [facility], [facility], [facility]. Detox bedsearch exhausted.
[2023-05-30] MEDS: methADONE HCl 20 MG/2 ML ORAL.CONC 135 MG PO (16:56)
--- NOTE | 2023-05-30 16:56 | PC.NURSE ---
pt is awake, fully alert and asking for methadone. Dose given per dec.
--- NOTE | 2023-05-30 17:05 | PC.NURSE ---
pt alert/oriented, walking with steady gait, communicating in complete sentences, resp even and unlabored. PO methadone given, discharge pending with last dose letter
== END 2023-05-30 17:16 | disposition home or self-care (01) ==
PROVIDERS: Physician Assistant; Emergency Provider Student in an Organized Health Care Education/Training Program
DX: F11.20 Opioid dependence, uncomplicated (principal); R53.83 Other fatigue; F19.10 Other psychoactive substance abuse, uncomplicated; Z79.899 Other long term (current) drug therapy
CPT/HCPCS: 36415; 80048; 80076; 80307; 83735; 85025; 99284

== ENCOUNTER 2023-06-04 08:49 | Emergency (ER) | payer OTHER, SELFPAY ==
[2023-06-04 08:59] VITALS: BP 102/70; PULSE 55; PULSE 76; RESP 14; O2SAT 98; BMI 20.8
--- NOTE | 2023-06-04 09:04 | ED_ITS ---
HPI - General Adult General Stated complaint: PT ADMITS TO DRUG USE,UNCOOP PER EMS Time Seen by Provider: 06/04/23 08:57 Source: patient and EMS Mode of arrival: EMS Limitations: no limitations History of Present Illness HPI narrative: 43-year-old female presents for an evaluation at the request of [facility]. Patient is tired. She is not sleeping well. She is not eating well. She denies any suicidal or homicidal ideation. She denies any drugs. She does admit to being quite somnolent fatigue because of her low a inability to sleep and she is not eating well. She did take methadone earlier this morning. She does not wish to be evaluated. She denies suicidal or homicidal ideation. Related Data Home Medications Medication Instructions Recorded Confirmed methadone 10 mg/mL oral 135 mg PO DAILY 05/30/23 05/30/23 concentrate (Methadone Intensol) Previous Rx's Medication Instructions Recorded cephalexin 500 mg capsule 500 mg PO TID #21 caps 11/16/21 doxycycline monohydrate 100 mg 100 mg PO BID #20 tabs 11/16/21 tablet ibuprofen 800 mg tablet 800 mg PO Q8H PRN pain #20 tabs 11/16/21 doxycycline monohydrate 100 mg 100 mg PO BID 7 days #14 tabs 11/25/21 tablet famotidine 20 mg tablet (Pepcid) 20 mg PO DAILY PRN abdominal 11/25/21 discomfort #30 tabs ondansetron 4 mg disintegrating 4 mg PO Q8H PRN nausea and 11/25/21 tablet vomiting #20 tabs acetaminophen 500 mg tablet 1,000 mg PO QID PRN fever or pain 11/27/21 (Tylenol Extra Strength) #14 tabs cephalexin 500 mg capsule 500 mg PO Q6H cellulitis 10 days 11/27/21 #40 caps fluconazole 150 mg tablet 150 mg PO Q3D 2 doses #2 tabs 11/27/21 (Diflucan) ibuprofen 800 mg tablet 800 mg PO Q8H PRN pain #14 tabs 11/27/21 sulfamethoxazole 800 1 tab PO BID 10 days #20 tabs 11/27/21 mg-trimethoprim 160 mg tablet (Bactrim DS) acetaminophen 500 mg tablet 1,000 mg PO QID PRN fever or pain 01/20/22 (Tylenol Extra Strength) #14 tabs cyclobenzaprine 10 mg tablet 10 mg PO Q8H PRN Muscle spasm #14 01/20/22 tabs acetaminophen 500 mg tablet 1,000 mg PO QID PRN fever or pain 12/16/22 (Tylenol Extra Strength) #14 tabs cyclobenzaprine 10 mg tablet 10 mg PO Q8H #14 tabs 12/16/22 acetaminophen 500 mg capsule 1,000 mg PO QID PRN pain #14 caps 01/28/23 cephalexin 500 mg capsule 500 mg PO QID #40 caps 01/28/23 doxycycline hyclate 100 mg capsule 100 mg PO BID #20 caps 01/28/23 Allergies Allergy/AdvReac Type Severity Reaction Status Date / Time No Known Allergies Allergy Verified 01/28/23 13:58 Review of Systems Review of Systems: CONSTITUTIONAL: Denies weight loss, fever and chills. HEENT: Denies changes in vision and hearing. RESPIRATORY: Denies SOB and cough. CV: Denies palpitations no CP. GI: Denies abdominal pain, nausea, vomiting and diarrhea. : Denies dysuria and urinary frequency. MSK: Denies myalgia and joint pain. SKIN: Denies rash and pruritus. NEUROLOGICAL: Denies headache and syncope. PSYCHIATRIC: Denies recent changes in mood. Denies anxiety and depression. All other ROS are negative unless in HPI PMFSH Past Medical History Medical History Active substance abuse Cellulitis Social History Social History Alcohol intake: current Alcohol intake frequency: 3 or more drinks per day Alcohol type: hard liquor Patient Tobacco Use Status: Tobacco use Unknown Substance Use Type: Crack/Cocaine Physical Exam ED GEN: Well developed, no acute distress, alert, oriented HEENT: Normocephalic, atraumatic, normal external ears, nose appears normal Eyes: Normal to appearance Neck: Supple, no lymphadenopathy Respiratory: Talks in complete sentences, no respiratory distress Extremities: No clubbing cyanosis or edema Neurologic: No focal neurologic deficits, cranial nerves 2-12 intact, gait normal Skin: No rash Medical Decision Making Medical Decision Making MDM Narrative: Patient presents for an evaluation however, patient does not want any care at this time. She does not appear to be suicidal homicidal. She appears to pose no immediate threat to herself or others. She is tired. She offers no additional acute complaints. There is no indication for further evaluation and LEs patient wishes to proceed any further. Differential Diagnosis Differential Diagnoses: The differential diagnosis associated with the presentation includes ( fatigue, malnutrition, under nutrition) Independent Historian Clinical information obtained from an independent historian. History obtained from or confirmed by: EMS Discharge Plan Discharge Clinical Impression: Fatigue Instructions: Fatigue (ED) Prescriptions: No Action doxycycline monohydrate 100 mg tablet 100 mg PO BID Qty: 20 0RF cephalexin 500 mg capsule 500 mg PO TID Qty: 21 0RF ibuprofen 800 mg tablet 800 mg PO Q8H PRN (Reason: pain) Qty: 20 0RF cyclobenzaprine 10 mg tablet 10 mg PO Q8H Qty: 14 0RF acetaminophen [Tylenol Extra Strength] 500 mg tablet 1,000 mg PO QID PRN (Reason: fever or pain) Qty: 14 0RF famotidine [Pepcid] 20 mg tablet 20 mg PO DAILY PRN (Reason: abdominal discomfort) Qty: 30 0RF doxycycline monohydrate 100 mg tablet 100 mg PO BID 7 Days Qty: 14 0RF ondansetron 4 mg tablet,disintegrating 4 mg PO Q8H PRN (Reason: nausea and vomiting) Qty: 20 0RF cephalexin 500 mg capsule 500 mg PO Q6H 10 Days Qty: 40 0RF sulfamethoxazole-trimethoprim [Bactrim DS] 800-160 mg tablet 1 tab PO BID 10 Days Qty: 20 0RF acetaminophen [Tylenol Extra Strength] 500 mg tablet 1,000 mg PO QID PRN (Reason: fever or pain) Qty: 14 0RF ibuprofen 800 mg tablet 800 mg PO Q8H PRN (Reason: pain) Qty: 14 0RF fluconazole [Diflucan] 150 mg tablet 150 mg PO Q3D Qty: 2 0RF acetaminophen [Tylenol Extra Strength] 500 mg tablet 1,000 mg PO QID PRN (Reason: fever or pain) Qty: 14 0RF cyclobenzaprine 10 mg tablet 10 mg PO Q8H PRN (Reason: Muscle spasm) Qty: 14 0RF doxycycline hyclate 100 mg capsule 100 mg PO BID Qty: 20 0RF cephalexin 500 mg capsule 500 mg PO QID Qty: 40 0RF acetaminophen 500 mg capsule 1,000 mg PO QID PRN (Reason: pain) Qty: 14 0RF methadone [Methadone Intensol] 10 mg/mL Concentrate 135 mg PO DAILY Referrals: [facility] [Provider Group]
--- NOTE | 2023-06-04 09:04 | PC.NURSE ---
pt biba after being found nodding off outside [facility]. pt refused to be transported by ems so ems called pd. pt verbalizes last cocaine use prior to ems transfer. pt denies other substance use. pt currently nodding off in bed. provider bedside. pt verbalizing that she does not want help/want to be here. provider states that he will put d/c paperwork in.
== END 2023-06-04 09:21 | disposition home or self-care (01) ==
PROVIDERS: Emergency Provider Emergency Medicine
DX: R53.83 Other fatigue (principal); F11.20 Opioid dependence, uncomplicated; Z79.899 Other long term (current) drug therapy
CPT/HCPCS: 99282

== ENCOUNTER 2023-06-10 05:00 | Emergency (ER) | payer OTHER, SELFPAY ==
[2023-06-10 05:07] VITALS: BP 108/62; BP 128/81; PULSE 55; PULSE 60; RESP 20; TEMP 36.7; O2SAT 98; BMI 23.1
--- NOTE | 2023-06-10 06:11 | MHC.EDTECH ---
PATIENT REFUSED TO HAVE VITALS CHECK .
--- NOTE | 2023-06-10 06:44 | PC.NURSE ---
pt is arousable , able to answer question correctly refusing vitals sign and wanting to sleep
--- NOTE | 2023-06-10 09:10 | ED_ITS ---
HPI - Alcohol General Chief Complaint: ETOH/Substance Use Stated Complaint: PT WANTS EVAL S/P STOPPED BY PD,UNK MED PROB Time Seen by Provider: 06/10/23 09:01 Source: patient Mode of arrival: ambulatory Limitations: no limitations History of Present Illness HPI narrative: 43-year-old female with history of opioid use disorder on methadone maintenance, alcohol abuse and dependence presents to the ER for evaluation of alcohol dependence, seeking detox. She states she her last use of alcohol and cocaine was last night around 11:00 o'clock. She usually drinks about a half a gal of vodka per day. She states she has a history of withdrawal in the past but denies withdrawal seizures. She states she last got 135 mg of methadone yesterday at her clinic. She denies any opiate use. MD complaint: alcohol dependence and desires rehab Last drink: Hours (ago) Chronic alcohol use: Yes Previous visits for alcohol intoxication: Yes Recent trauma: No Associated symptoms: denies other symptoms Treatments prior to arrival: none Related Data Home Medications Medication Instructions Recorded Confirmed methadone 10 mg/mL oral 135 mg PO DAILY 05/30/23 05/30/23 concentrate (Methadone Intensol) Previous Rx's Medication Instructions Recorded cephalexin 500 mg capsule 500 mg PO TID #21 caps 11/16/21 doxycycline monohydrate 100 mg 100 mg PO BID #20 tabs 11/16/21 tablet ibuprofen 800 mg tablet 800 mg PO Q8H PRN pain #20 tabs 11/16/21 doxycycline monohydrate 100 mg 100 mg PO BID 7 days #14 tabs 11/25/21 tablet famotidine 20 mg tablet (Pepcid) 20 mg PO DAILY PRN abdominal 11/25/21 discomfort #30 tabs ondansetron 4 mg disintegrating 4 mg PO Q8H PRN nausea and 11/25/21 tablet vomiting #20 tabs acetaminophen 500 mg tablet 1,000 mg PO QID PRN fever or pain 11/27/21 (Tylenol Extra Strength) #14 tabs cephalexin 500 mg capsule 500 mg PO Q6H cellulitis 10 days 11/27/21 #40 caps fluconazole 150 mg tablet 150 mg PO Q3D 2 doses #2 tabs 11/27/21 (Diflucan) ibuprofen 800 mg tablet 800 mg PO Q8H PRN pain #14 tabs 11/27/21 sulfamethoxazole 800 1 tab PO BID 10 days #20 tabs 11/27/21 mg-trimethoprim 160 mg tablet (Bactrim DS) acetaminophen 500 mg tablet 1,000 mg PO QID PRN fever or pain 01/20/22 (Tylenol Extra Strength) #14 tabs cyclobenzaprine 10 mg tablet 10 mg PO Q8H PRN Muscle spasm #14 01/20/22 tabs acetaminophen 500 mg tablet 1,000 mg PO QID PRN fever or pain 12/16/22 (Tylenol Extra Strength) #14 tabs cyclobenzaprine 10 mg tablet 10 mg PO Q8H #14 tabs 12/16/22 acetaminophen 500 mg capsule 1,000 mg PO QID PRN pain #14 caps 01/28/23 cephalexin 500 mg capsule 500 mg PO QID #40 caps 01/28/23 doxycycline hyclate 100 mg capsule 100 mg PO BID #20 caps 01/28/23 Allergies Allergy/AdvReac Type Severity Reaction Status Date / Time No Known Allergies Allergy Verified 01/28/23 13:58 Review of Systems Review of Systems: Yes all other systems are reviewed and are negative [facility] Past Medical History Medical History Active substance abuse Cellulitis Social History Social History Alcohol intake: current Alcohol intake frequency: 3 or more drinks per day Alcohol type: hard liquor Patient Tobacco Use Status: Tobacco use Unknown Smoked in Last 30 Days: Yes Use of substances other than those prescribed or required for medical reasons: Yes Substance Use Type: Crack/Cocaine Substance Use Frequency: Chronic Longstanding Last Used Substance: Hours (ago) Advance Directives: No Physical Exam ED Vital Signs: Vital Signs - 24 hr 06/10/23 05:07 06/10/23 11:15 06/10/23 16:00 Temperature 98.0 F 98.6 F 98.3 F Pulse Rate 60 74 79 Respiratory Rate 20 14 16 Blood Pressure 128/81 126/68 126/76 Pulse Oximetry 98 98 100 Oxygen Delivery Method Room Air Room Air Room Air BMI result Body Mass Index 23.1 Course Reevaluation(s) Reevaluation #1: Physician observation started at 10:15. Lab work was unremarkable. Patient positive for fentanyl and opiates. Seen by Recovery team. Referrals being made for detox. patient still too sleepy for methadone. Time: 10:15 Reevaluation #2: Patient no up and ambulating, states she is very sick and needs for methadone. She did an intake with [facility] and and has a better [facility] at 21:00 tonight. Unfortunately patient states she does not want to go to [facility] for rehab and would rather be discharged. We discussed social concerns and importance of abstinence. She expressed understanding and is stable for discharge home. She is not suicidal or bradley icidal. No evidence of active alcohol withdrawal at this time. Physician observation discontinued at this time Time: 16:02 Medical Decision Making Medical Decision Making MDM Narrative: 43-year-old female with history of alcohol use disorder, polysubstance abuse who presents to the ER for evaluation of substance use and desiring detox. She states her last alcohol and crack cocaine use was last night at 11:00 o'clock. On arrival to the ER patient was lethargic, had difficult time obtaining history. After lab work was performed and patient was observed in the ER for several hours, she was able to have discussion with addiction medicine. She has been accepted to [facility] however she does not want to go there for rehab. She was dosed her methadone 135 mg today and will be discharged. Differential Diagnosis Differential Diagnoses: The differential diagnosis associated with the presentation includes Acute alcohol intoxication, acute opiate intoxication, polysubstance abuse, depression, substance induced mood disorder, alcohol withdrawal Admission/Observation Consideration of admission/observation: Escalation of care including admission/observation considered Lab Data [facility] Lab Attestation statement: I reviewed the patient's lab results. 06/10/23 09:47 06/10/23 09:47 Labs: Lab Results 06/10/23 06/10/23 06/10/23 Range/Units 09:47 09:47 09:47 WBC 8.5 (4.8-10.8) X10*3/uL RBC 3.96 L (4.20-5.50) X10*6/uL Hgb 11.6 L (12.0-16.0) g/dl Hct 35.9 L (37.0-47.0) % MCV 90.7 (80.0-98.0) fL MCH 29.3 (27.0-33.0) pg MCHC 32.3 (31.0-35.0) g/dl RDW 12.8 (11.0-16.0) % Plt Count 288 (160-400) X10*3/uL MPV 9.5 (9.4-12.3) fL Immature Gran % (Auto) 0.4 (0.0-0.4) % Neut % (Auto) 61.3 (45-73) % Lymph % (Auto) 26.7 (20-40) % [place] % (Auto) 9.6 (2-11) % Eos % (Auto) 1.4 (0-4) % Baso % (Auto) 0.6 (0-2) % Lymph # (Auto) 2.3 (1.2-4.9) X10*3/uL [place] # (Auto) 0.8 (0.1-1.2) X10*3/uL Eos # (Auto) 0.1 (0.0-0.4) X10*3/uL Baso # (Auto) 0.1 (0.0-0.2) X10*3/uL Abs Immat Gran (auto) 0.03 (0.00-0.03) X10*3/uL Absolute Neuts (auto) 5.2 (2.0-8.3) x10*3/uL Absolute Nucleated RBC 0.000 (0.0-0.012) X10*3/uL Nucleated RBC % (auto) 0.0 (0.0-0.2) /100WBC Sodium 141 (135-145) mmol/L Potassium 3.7 (3.3-5.1) mmol/L Chloride 103 (96-108) mmol/L Carbon Dioxide 32 H (22-29) mmol/L Anion Gap 10 L (12-20) BUN 11 (9-16) mg/dL Creatinine 0.79 (0.5-1.4) mg/dL Estim Creat Clear Calc 108.1 Estimated GFR > 60 Random Glucose 100 (60-115) mg/dL Calcium 9.4 (8.4-10.2) mg/dL Magnesium 2.1 (1.6-2.6) mg/dL Total Bilirubin 1.0 (0.0-1.0) mg/dL Direct Bilirubin 0.4 (0.0-0.5) mg/dL AST 16 (5-31) U/L ALT 14 (0-31) U/L Alkaline Phosphatase 79 (39-117) U/L Total Protein 7.8 (6.5-8.0) g/dL Albumin 3.6 (3.5-5.0) g/dL Urine Color Dark Yellow Urine Appearance Cloudy Urine pH 6.0 (5.0-9.0) Ur Specific [place] 1.025 (1.005-1.025) Urine Protein Trace (Neg-Trace) mg/dL Urine Glucose (UA) Negative (Negative) mg/dL Urine Ketones Negative (Negative) mg/dL Urine Blood Negative (Negative) Urine Nitrite Negative (Negative) Ur Leukocyte Esterase Moderate (2+) H (Negative) Urine RBC 0-2 (0-2) /HPF Urine WBC >50 H (0-5) /HPF Ur Squamous Epith Cells >20 (0-2) /HPF Calcium Oxalate Crystal Present Urine Bacteria 2+ (None Seen) Hyaline Casts 0-2 (0-2) /LPF Urine Test (NEGATIVE) Urine Opiates Screen (Not Detect) Urine Fentanyl Screen (Not Detect) Ur Barbiturates Screen (Not Detect) Ur Phencyclidine Scrn (Not Detect) Ur Amphetamines Screen (Not Detect) U Benzodiazepines Scrn (Not Detect) Urine Cocaine Screen (Not Detect) U Marijuana (THC) Screen (Not Detect) Ethyl Alcohol < 10 mg/dL 06/10/23 06/10/23 Range/Units 09:47 09:47 WBC (4.8-10.8) X10*3/uL RBC (4.20-5.50) X10*6/uL Hgb (12.0-16.0) g/dl Hct (37.0-47.0) % MCV (80.0-98.0) fL MCH (27.0-33.0) pg MCHC (31.0-35.0) g/dl RDW (11.0-16.0) % Plt Count (160-400) X10*3/uL MPV (9.4-12.3) fL Immature Gran % (Auto) (0.0-0.4) % Neut % (Auto) (45-73) % Lymph % (Auto) (20-40) % [place] % (Auto) (2-11) % Eos % (Auto) (0-4) % Baso % (Auto) (0-2) % Lymph # (Auto) (1.2-4.9) X10*3/uL [place] # (Auto) (0.1-1.2) X10*3/uL Eos # (Auto) (0.0-0.4) X10*3/uL Baso # (Auto) (0.0-0.2) X10*3/uL Abs Immat Gran (auto) (0.00-0.03) X10*3/uL Absolute Neuts (auto) (2.0-8.3) x10*3/uL Absolute Nucleated RBC (0.0-0.012) X10*3/uL Nucleated RBC % (auto) (0.0-0.2) /100WBC Sodium (135-145) mmol/L Potassium (3.3-5.1) mmol/L Chloride (96-108) mmol/L Carbon Dioxide (22-29) mmol/L Anion Gap (12-20) BUN (9-16) mg/dL Creatinine (0.5-1.4) mg/dL Estim Creat Clear Calc Estimated GFR Random Glucose (60-115) mg/dL Calcium (8.4-10.2) mg/dL Magnesium (1.6-2.6) mg/dL Total Bilirubin (0.0-1.0) mg/dL Direct Bilirubin (0.0-0.5) mg/dL AST (5-31) U/L ALT (0-31) U/L Alkaline Phosphatase (39-117) U/L Total Protein (6.5-8.0) g/dL Albumin (3.5-5.0) g/dL Urine Color Urine Appearance Urine pH (5.0-9.0) Ur Specific [place] (1.005-1.025) Urine Protein (Neg-Trace) mg/dL Urine Glucose (UA) (Negative) mg/dL Urine Ketones (Negative) mg/dL Urine Blood (Negative) Urine Nitrite (Negative) Ur Leukocyte Esterase (Negative) Urine RBC (0-2) /HPF Urine WBC (0-5) /HPF Ur Squamous Epith Cells (0-2) /HPF Calcium Oxalate Crystal Urine Bacteria (None Seen) Hyaline Casts (0-2) /LPF Urine Test NEGATIVE (NEGATIVE) Urine Opiates Screen POSITIVE H (Not Detect) Urine Fentanyl Screen POSITIVE H (Not Detect) Ur Barbiturates Screen Not Detected (Not Detect) Ur Phencyclidine Scrn Not Detected (Not Detect) Ur Amphetamines Screen Not Detected (Not Detect) U Benzodiazepines Scrn Not Detected (Not Detect) Urine Cocaine Screen POSITIVE H (Not Detect) U Marijuana (THC) Screen Not Detected (Not Detect) Ethyl Alcohol mg/dL External Record Review External record reviewed: Outpatient record and Prior outpatient labs Prescription Management I considered prescription management with: Other (benzos) Chronic Conditions Patient?s care impacted by: Other (opiate use disorder) Social Determinants Patient?s care significantly limited by Social Determinants of Health including: Alcoholism and drug addiction in family and Problems related to primary support group Medications Administered Discontinued Medications Generic Name Dose Route Start Last Admin Trade Name Freq PRN Reason Stop Dose Admin Methadone HCl 135 mg 06/10/23 15:31 06/10/23 16:18 Methadone Hcl 20 Mg/2 Ml Oral.Conc PO 06/10/23 15:32 135 mg ONCE ONE Administration Critical Care Time Critical Care Time Critical Care Time: No Discharge Plan Discharge Clinical Impression: Alcohol use disorder, Opioid use disorder Patient Disposition: Home, Self-Care Instructions: Alcohol Use Disorder (ED), Opioid Use Disorder (ED) Additional Instructions: You were given methadone 135 mg on 06/10/23 at 4pm DO NOT DRINK ALCOHOL OR DO DRUGS, THEY CAN KILL YOU Recommend detox If you develop new or worsening symptoms call 911 or come back to the ER for further evaluation. Prescriptions: No Action doxycycline monohydrate 100 mg tablet 100 mg PO BID Qty: 20 0RF cephalexin 500 mg capsule 500 mg PO TID Qty: 21 0RF ibuprofen 800 mg tablet 800 mg PO Q8H PRN (Reason: pain) Qty: 20 0RF cyclobenzaprine 10 mg tablet 10 mg PO Q8H Qty: 14 0RF acetaminophen [Tylenol Extra Strength] 500 mg tablet 1,000 mg PO QID PRN (Reason: fever or pain) Qty: 14 0RF famotidine [Pepcid] 20 mg tablet 20 mg PO DAILY PRN (Reason: abdominal discomfort) Qty: 30 0RF doxycycline monohydrate 100 mg tablet 100 mg PO BID 7 Days Qty: 14 0RF ondansetron 4 mg tablet,disintegrating 4 mg PO Q8H PRN (Reason: nausea and vomiting) Qty: 20 0RF cephalexin 500 mg capsule 500 mg PO Q6H 10 Days Qty: 40 0RF sulfamethoxazole-trimethoprim [Bactrim DS] 800-160 mg tablet 1 tab PO BID 10 Days Qty: 20 0RF acetaminophen [Tylenol Extra Strength] 500 mg tablet 1,000 mg PO QID PRN (Reason: fever or pain) Qty: 14 0RF ibuprofen 800 mg tablet 800 mg PO Q8H PRN (Reason: pain) Qty: 14 0RF fluconazole [Diflucan] 150 mg tablet 150 mg PO Q3D Qty: 2 0RF acetaminophen [Tylenol Extra Strength] 500 mg tablet 1,000 mg PO QID PRN (Reason: fever or pain) Qty: 14 0RF cyclobenzaprine 10 mg tablet 10 mg PO Q8H PRN (Reason: Muscle spasm) Qty: 14 0RF doxycycline hyclate 100 mg capsule 100 mg PO BID Qty: 20 0RF cephalexin 500 mg capsule 500 mg PO QID Qty: 40 0RF acetaminophen 500 mg capsule 1,000 mg PO QID PRN (Reason: pain) Qty: 14 0RF methadone [Methadone Intensol] 10 mg/mL Concentrate 135 mg PO DAILY Interventions: ED Discharge Assessment Last Done: 06/10/23 16:42 Discharge Date/Time: 06/10/23 16:35
[2023-06-10 09:51] LABS: MANUAL DIFF FLAG NO
[2023-06-10 09:52] LABS: Basophils Absolute Auto 0.1 X10*3/uL (0.0-0.2); Basophils Percent Auto 0.6 % (0-2); Eosinophils Absolute Auto 0.1 X10*3/uL (0.0-0.4); Eosinophils Percent Auto 1.4 % (0-4); Hematocrit 35.9 % (37.0-47.0); Hemoglobin 11.6 g/dl (12.0-16.0); Imm Gran Abs Auto 0.03 X10*3/uL (0.00-0.03); Imm Gran Pct Auto 0.4 % (0.0-0.4); Lymphocytes Absolute Auto 2.3 X10*3/uL (1.2-4.9); Lymphocytes Percent Auto 26.7 % (20-40); Mean Corpuscular HGB Conc 32.3 g/dl (31.0-35.0); Mean Corpuscular Hemoglobin 29.3 pg (27.0-33.0); Mean Corpuscular Volume 90.7 fL (80.0-98.0); Mean Platelet Volume 9.5 fL (9.4-12.3); Monocytes Absolute Auto 0.8 X10*3/uL (0.1-1.2); Monocytes Percent Auto 9.6 % (2-11); Neutrophils Absolute Auto 5.2 x10*3/uL (2.0-8.3); Neutrophils Percent Auto 61.3 % (45-73); Platelet Count 288 X10*3/uL (160-400); Red Blood Count 3.96 X10*6/uL (4.20-5.50); Red Cell Distribution Width 12.8 % (11.0-16.0); White Blood Count 8.5 X10*3/uL (4.8-10.8)
[2023-06-10 09:56] LABS: Appearance Urine Cloudy; Color Urine Dark Yellow; Glucose Urine UA Negative (Negative); Leukocyte Esterase Urine Moderate (2+) (Negative); Nitrite Urine Negative (Negative); Specific Gravity - Urine 1.025 (1.005-1.025); UMIC TRIGGER UACC YES; Urine Blood Negative (Negative); Urine Ketones Negative (Negative); Urine Protein Trace mg/dL (Neg-Trace)
[2023-06-10 09:58] LABS: UPreg QC Valid YES; Urine Pregnancy NEGATIVE (NEGATIVE)
[2023-06-10 10:06] LABS: Alanine Aminotransferase 14 U/L (0-31); Albumin Level 3.6 g/dL (3.5-5.0); Alkaline Phosphatase 79 U/L (39-117); Amphetamine Screen Urine Not Detected (Not Detect); Anion Gap 10 (12-20); Aspartate Amino Transferase 16 U/L (5-31); Barbiturates, Urine Not Detected (Not Detect); Benzodiazepines Screen Urine Not Detected (Not Detect); Bilirubin Direct 0.4 mg/dL (0.0-0.5); Blood Urea Nitrogen 11 mg/dL (9-16); Calcium 9.4 mg/dL (8.4-10.2); Cannabinoid Screen Urine Not Detected (Not Detect); Carbon Dioxide 32 mmol/L (22-29); Chloride 103 mmol/L (96-108); Cocaine Screen Urine POSITIVE (Not Detect); Creatinine Clr Calc Pharmacy 108.1; Estimated Glomerular Filt Rate > 60; Ethanol < 10 mg/dL; Fentanyl, urine POSITIVE (Not Detect); Glucose Random 100 mg/dL (60-115); Magnesium 2.1 mg/dL (1.6-2.6); Opiate Screen Urine POSITIVE (Not Detect); Phencyclidine Screen Urine Not Detected (Not Detect); Potassium 3.7 mmol/L (3.3-5.1); Sodium 141 mmol/L (135-145); Total Protein 7.8 g/dL (6.5-8.0)
[2023-06-10 10:12] LABS: Bacteria Urine 2+ (None Seen); Calcium Oxalate Crystals Urine Present; Hyaline Casts Urine 0-2 /LPF (0-2); RBC Urine 0-2 /HPF (0-2); Squamous Epithelial Cell Urine >20 /HPF (0-2); UACC Culture Trigger YES; WBC Urine >50 /HPF (0-5)
[2023-06-10 11:15] VITALS: BP 126/68; PULSE 74; PULSE 76; RESP 14; TEMP 37; O2SAT 98
--- NOTE | 2023-06-10 11:25 | PC.NURSE ---
oriented x3. lethargic/drowsy/JESSI petersen aware. CIWA/COWS results stated to JESSI petersen. ate ice cream. seizure pads on r/t etoh hx- denies hx W/D or seizures. VSS. aiway intact; o2 sat +on RA
--- NOTE | 2023-06-10 11:26 | PC.NURSE ---
this rn contacted [facility] and spoke to Viki KENNEY to verify methadone dose.
--- NOTE | 2023-06-10 14:07 | MHC.RECOVSUP ---
Addendum entered by Ivan Gonzalez 06/10/23 16:48: Pt no longer interested in ATS with [facility] and would like to DC. Addendum entered by Ivan Gonzalez 06/10/23 15:31: Pt has been accepted to [facility] for 9pm admission. Lyft will be ordered for her at 7:30pm. Original Note: Met with pt in [facility] who is here for KRISTOPHER. Pt reports using $50 of crack heroin and alcohol daily and is currently on 135mg Methadone from [facility] with last dose yesterday. pt is currently interested in ATS and is willing to go anywhere. ATS bed search in process, pt has no other questions or concerns at this time.
--- NOTE | 2023-06-10 15:41 | PC.NURSE ---
pt walking, talking w/o distress. ate lunch earlier well. eating snack. awaiting methadone verification- [facility] to administer
[2023-06-10 16:00] VITALS: BP 126/76; PULSE 79; RESP 16; TEMP 36.8; O2SAT 100
[2023-06-10] MEDS: methADONE HCl 20 MG/2 ML ORAL.CONC 135 MG PO (16:18)
--- NOTE | 2023-06-10 16:27 | PC.NURSE ---
aox4 talking calm cooperative. VSS. eating. no lethargy. see ciwa/cows
== END 2023-06-10 16:35 | disposition home or self-care (01) ==
PROVIDERS: Physician Assistant; Emergency Provider Emergency Medicine
DX: F11.20 Opioid dependence, uncomplicated (principal); F10.20 Alcohol dependence, uncomplicated; Y90.0 Blood alcohol level of less than 20 mg/100 ml; Z79.899 Other long term (current) drug therapy
CPT/HCPCS: 36415; 80048; 80076; 80307; 81001; 81025; 83735; 85025; 87086; 87147; 99284

== ENCOUNTER 2023-08-02 08:42 | Emergency (ER) | payer OTHER, SELFPAY ==
--- NOTE | ~2023-08-02 | CT_ITS ---
EXAMINATION: CT HEAD WITHOUT CONTRAST CT CERVICAL SPINE WITHOUT CONTRAST CLINICAL INFORMATION: Fall. Head strike. COMPARISON: None available. TECHNIQUE: Contiguous axial imaging was performed from the skull base to vertex without intravenous administration of contrast. Contiguous axial CT images of the cervical spine were obtained without contrast. Sagittal and coronal reformats were provided and reviewed. This CT examination was performed using dose optimization techniques as appropriate, variously including the following: *Automated exposure control *Adjustment of mA and/or kV according to patient size (this includes techniques or standardized protocols for targeted exams where dose is matched to indication/reason for exam; i.e. extremities or head) *Use of iterative reconstruction technique DLP: 1036 mGy-cm FINDINGS: HEAD: There is no evidence of acute intracranial hemorrhage or territorial infarction. No abnormal mass effect or midline shift is seen. Goldstein to white matter differentiation is well preserved. No extra-axial fluid collections are identified. The ventricles are normal in size. There is no abnormal attenuation within the brain parenchyma. The osseous structures and soft tissues are normal. Mild mucoperiosteal thickening of the maxillary sinuses. Otherwise, the visualized paranasal sinuses and mastoid air cells are clear. CERVICAL SPINE: Normal vertebral body alignment. The normal cervical lordosis is maintained. No acute fracture or subluxation. No loss of vertebral body height. Loss of intervertebral disc height with endplate osteophytes at C4-C5 and C5-C6. Mild multilevel bilateral facet arthropathy. No lytic or blastic osseous lesion. Unremarkable prevertebral soft tissues. No abnormal soft tissue mass or fluid collection. Thyroid within normal limits. Visualized lung apices are clear. Mild bilateral neural foraminal stenosis C5-C6. No significant central canal stenosis. CT/CT cervical spine wo IV con IMPRESSION: HEAD: No acute intracranial hemorrhage or mass effect. CERVICAL SPINE: No acute fracture or subluxation. Degenerative disc disease at C4-C5 and C5-C6 with mild bilateral neural foraminal stenosis.
[2023-08-02 08:52] VITALS: BP 112/88; BP 116/80; PULSE 78; PULSE 94; RESP 14; TEMP 36.8; O2SAT 100; O2SAT 96; BMI 18.9
--- NOTE | 2023-08-02 09:05 | ED_ITS ---
HPI - Fall General Chief Complaint: Fall Stated Complaint: FALL T-1,NO C/O PER PT, FROM [facility] PER EMS Time Seen by Provider: 08/02/23 09:04 Source: patient and RN notes reviewed Mode of arrival: ambulatory Limitations: no limitations History of Present Illness HPI Narrative: This is a 43-year-old female, with a past medical history of substance use disorder, on methadone, presenting to the emergency department for evaluation of fall. Patient states that while she was standing up in [facility], she fell asleep. She struck the right side of her head. Denies loss of consciousness. She states that she had a mild headache after the injury yesterday, which resolved last night. She states that she has been feeling well since this injury. She states that she has had no chest pain or shortness of breath. She went to her methadone clinic this morning and told the office that she had a fall and was not does with her methadone today. She states that all she wants today is her methadone dose and to be discharged. She denies any headaches, dizziness, lightheadedness, neck pain, chest pain, shortness breath, abdominal pain, nausea, vomiting or diarrhea. No other complaints or concerns at this time. MD complaint: fall Onset (ago): day(s) Fall from: standing Fall witnessed: yes, by bystander Place fall occurred: other ([place]) Loss of consciousness: none Prolonged down time: no Symptoms prior to fall: other (Fell asleep) Location of injury: head Associated symptoms (after fall): denies Related Data Home Medications Medication Instructions Recorded Confirmed methadone 10 mg/mL oral 135 mg PO DAILY 05/30/23 05/30/23 concentrate (Methadone Intensol) Previous Rx's Medication Instructions Recorded cephalexin 500 mg capsule 500 mg PO TID #21 caps 11/16/21 doxycycline monohydrate 100 mg 100 mg PO BID #20 tabs 11/16/21 tablet ibuprofen 800 mg tablet 800 mg PO Q8H PRN pain #20 tabs 11/16/21 doxycycline monohydrate 100 mg 100 mg PO BID 7 days #14 tabs 11/25/21 tablet famotidine 20 mg tablet (Pepcid) 20 mg PO DAILY PRN abdominal 11/25/21 discomfort #30 tabs ondansetron 4 mg disintegrating 4 mg PO Q8H PRN nausea and 11/25/21 tablet vomiting #20 tabs acetaminophen 500 mg tablet 1,000 mg (2 x 500 mg) PO QID PRN 11/27/21 (Tylenol Extra Strength) fever or pain #14 tabs cephalexin 500 mg capsule 500 mg PO Q6H cellulitis 10 days 11/27/21 #40 caps fluconazole 150 mg tablet 150 mg PO Q3D 2 doses #2 tabs 11/27/21 (Diflucan) ibuprofen 800 mg tablet 800 mg PO Q8H PRN pain #14 tabs 11/27/21 sulfamethoxazole 800 1 tab PO BID 10 days #20 tabs 11/27/21 mg-trimethoprim 160 mg tablet (Bactrim DS) acetaminophen 500 mg tablet 1,000 mg (2 x 500 mg) PO QID PRN 01/20/22 (Tylenol Extra Strength) fever or pain #14 tabs cyclobenzaprine 10 mg tablet 10 mg PO Q8H PRN Muscle spasm #14 01/20/22 tabs acetaminophen 500 mg tablet 1,000 mg (2 x 500 mg) PO QID PRN 12/16/22 (Tylenol Extra Strength) fever or pain #14 tabs cyclobenzaprine 10 mg tablet 10 mg PO Q8H #14 tabs 12/16/22 acetaminophen 500 mg capsule 1,000 mg (2 x 500 mg) PO QID PRN 01/28/23 pain #14 caps cephalexin 500 mg capsule 500 mg PO QID #40 caps 01/28/23 doxycycline hyclate 100 mg capsule 100 mg PO BID #20 caps 01/28/23 Allergies Allergy/AdvReac Type Severity Reaction Status Date / Time No Known Allergies Allergy Verified 01/28/23 13:58 Review of Systems Review of Systems: Yes all other systems are reviewed and are negative Constitutional: Constitutional: Reports as per [facility] Past Medical History Medical History Active substance abuse Cellulitis Social History Social History Unable to assess alcohol history related to: Refusing to respond Alcohol intake: current Alcohol intake frequency: 3 or more drinks per day Alcohol type: hard liquor Patient Tobacco Use Status: Tobacco use Unknown Smoked in Last 30 Days: Yes Use of substances other than those prescribed or required for medical reasons: Yes Substance Use Type: Heroin and Opiates Advance Directives: No Advance Directives Information Provided: No Patient : No Physical Exam Vital Signs: Vital Signs: Last Vital Signs Temp 97.5 F 08/02/23 22:46 Pulse 79 08/02/23 22:46 Resp 18 08/02/23 22:46 BP 101/73 08/02/23 22:46 Pulse Ox 100 08/02/23 22:46 O2 Del Method Room Air 08/02/23 22:46 BMI result Body Mass Index 18.9 Const: General: cooperative, comfortable and no acute distress Orientation/consciousness: patient oriented x3 Limitations: no limitations HEENT: Other: Mild tenderness palpation along the right parietal region, no open wounds or lacerations. No bony step-off or crepitus. Head: Yes normal to inspection, Yes normocephalic, Yes atraumatic, No Domiinque's sign, No occipital foramen tenderness, No palpable skull fracture and No raccoon eyes Ears: hearing grossly normal bilaterally General nose exam: Normal external nose present Face and sinus: Yes normal facial exam Mouth: Normal oral and palatal mucosa present, oropharynx normal and moist mucous membranes Throat: Yes posterior oropharynx normal Eyes: General: appearance normal, both eyes and all related structures Eyelids: Yes eyelids normal Conjunctivae: conjunctivae normal Sclerae: sclerae normal Pupils: Equal, round and reactive pupils present EOM: EOMs intact bilaterally Neck: Other: No cervical midline spine tenderness. Full range of motion of the neck Neck: Yes normal visual inspection, Yes full ROM and Yes no lymphadenopathy Lymphatic: no lymphadenopathy noted Chest: Chest palpation & inspection: normal inspection of the chest Resp: Effort & Inspection: normal respiratory effort and able to speak in complete sentences Auscultation: clear to auscultation bilaterally, no crackles, no rales, no rhonchi and no wheezes Cardio: Rate: regular rate Rhythm: regular rhythm Heart sounds: S1 normal heart sound present and S2 normal heart sound present GI: Inspection: Yes normal to inspection Skin: General skin exam: no rashes or lesions noted Trauma: no lacerations or abrasions Wounds: no wounds Neuro: General: patient oriented x3 and moves all extremities Cranial nerves: Yes Equal, round and reactive pupils present Extrem: General: Yes normal to inspection Right upper extremity: normal to inspection Left upper extremity: normal to inspection Right lower extremity: normal to inspection Left lower extremity: normal to inspection Course Reevaluation(s) Reevaluation #1: CT head without any acute intracranial hemorrhage or mass effect. Cervical spine CT revealing degenerative disc disease at C4-C5 and C5-C6 with bilateral neural foraminal stenosis. Received methadone last dose letter, last dose was yesterday, due for methadone dosing today. Methadone clinic is currently closed. Will dose with 1 time dose of methadone 135 mg by mouth. Time: 10:15 Reevaluation #2: Patient ambulatory, stable for discharge after receiving methadone dosing. Urine drug screen collected, positive for cocaine, fentanyl, and opiates. Care team consult for seeking detox order placed as pt requesting detox. Physician observation initiated Time: 12:32 Reevaluation #3: 08/03/23--658--physician observation continued. Vital signs stable. Labs reviewed. Patient noted to have UTI, Macrobid 100 mg b.i.d. initiated. Pending recovery eval 1037--patient accepted to [facility] detox. Medications Administered Generic Name Dose Route Start Last Admin Trade Name Freq PRN Reason Stop Dose Admin Nitrofurantoin Macrocrystals 100 mg 08/03/23 07:00 08/03/23 07:52 Nitrofurantoin Monohyd/M-Cryst 100 Mg Capsule PO 08/10/23 06:59 100 mg Q12H BISHOP Administration Discontinued Medications Generic Name Dose Route Start Last Admin Trade Name Freq PRN Reason Stop Dose Admin Acetaminophen 650 mg 08/03/23 03:02 08/03/23 03:05 Acetaminophen 325 Mg Tablet PO 08/03/23 03:03 650 mg ONCE ONE Administration Methadone HCl 135 mg 08/02/23 09:17 08/02/23 12:24 Methadone Hcl 20 Mg/2 Ml Oral.Conc PO 08/02/23 09:18 135 mg ONCE ONE Administration Methadone HCl 135 mg 08/03/23 07:27 08/03/23 07:52 Methadone Hcl 20 Mg/2 Ml Oral.Conc PO 08/03/23 07:28 135 mg ONCE ONE Administration Medical Decision Making Medical Decision Making MDM Narrative: 43-year-old female presenting to the emergency department for evaluation of fall which occurred yesterday. Vital signs within normal limits. Patient tired appearing, otherwise patient is fully neurologically intact. Patient states that while she was at [employer], she fell asleep standing up and fell onto the right side of her face. Patient has mild tenderness to palpation to the parietal region without any step-off or obvious skull fracture. No abrasion noted. Vital signs within normal limits. Plan: CT head, CT neck Differential Diagnosis Differential Diagnoses: The differential diagnosis associated with the presentation includes ICH, skull fracture, opioid use disorder, closed head injury Admission/Observation Consideration of admission/observation: Escalation of care including admission/observation considered Patient would have been admitted to the hospital had her work up had any findings where hospital admission was appropriate and her clinical presentation warranted hospital admission. Lab Data Labs: Lab Results 08/02/23 Range/Units 12:26 Urine Color Yellow Urine Appearance Clear Urine pH 6.5 (5.0-9.0) Ur Specific [place] 1.015 (1.005-1.025) Urine Protein Negative (Neg-Trace) mg/dL Urine Glucose (UA) Negative (Negative) mg/dL Urine Ketones Negative (Negative) mg/dL Urine Blood Negative (Negative) Urine Nitrite Negative (Negative) Ur Leukocyte Esterase Large (3+) H (Negative) Urine RBC 0-2 (0-2) /HPF Urine WBC 11-20 H (0-5) /HPF Ur Squamous Epith Cells 3-5 (0-2) /HPF Urine Bacteria Trace (None Seen) Hyaline Casts 0-2 (0-2) /LPF Urine Opiates Screen POSITIVE H (Not Detect) Urine Fentanyl Screen POSITIVE H (Not Detect) Ur Barbiturates Screen Not Detected (Not Detect) Ur Phencyclidine Scrn Not Detected (Not Detect) Ur Amphetamines Screen Not Detected (Not Detect) U Benzodiazepines Scrn Not Detected (Not Detect) Urine Cocaine Screen POSITIVE H (Not Detect) U Marijuana (THC) Screen Not Detected (Not Detect) Radiology Impression Discussion of test interpretation with radiology: I have reviewed the radiologist's reading. Radiologist Impression: EXAMINATION: CT HEAD WITHOUT CONTRAST CT CERVICAL SPINE WITHOUT CONTRAST CLINICAL INFORMATION: Fall. Head strike. COMPARISON: None available. TECHNIQUE: Contiguous axial imaging was performed from the skull base to vertex without intravenous administration of contrast. Contiguous axial CT images of the cervical spine were obtained without contrast. Sagittal and coronal reformats were provided and reviewed. This CT examination was performed using dose optimization techniques as appropriate, variously including the following: *Automated exposure control *Adjustment of mA and/or kV according to patient size (this includes techniques or standardized protocols for targeted exams where dose is matched to indication/reason for exam; i.e. extremities or head) *Use of iterative reconstruction technique DLP: 1036 mGy-cm FINDINGS: HEAD: There is no evidence of acute intracranial hemorrhage or territorial infarction. No abnormal mass effect or midline shift is seen. Goldstein to white matter differentiation is well preserved. No extra-axial fluid collections are identified. The ventricles are normal in size. There is no abnormal attenuation within the brain parenchyma. The osseous structures and soft tissues are normal. Mild mucoperiosteal thickening of the maxillary sinuses. Otherwise, the visualized paranasal sinuses and mastoid air cells are clear. CERVICAL SPINE: Normal vertebral body alignment. The normal cervical lordosis is maintained. No acute fracture or subluxation. No loss of vertebral body height. Loss of intervertebral disc height with endplate osteophytes at C4-C5 and C5-C6. Mild multilevel bilateral facet arthropathy. No lytic or blastic osseous lesion. Unremarkable prevertebral soft tissues. No abnormal soft tissue mass or fluid collection. Thyroid within normal limits. Visualized lung apices are clear. Mild bilateral neural foraminal stenosis C5-C6. No significant central canal stenosis. CT/CT head/brain wo IV con IMPRESSION: HEAD: No acute intracranial hemorrhage or mass effect. CERVICAL SPINE: No acute fracture or subluxation. Degenerative disc disease at C4-C5 and C5-C6 with mild bilateral neural foraminal stenosis. Dictated By: Ahsan Fountain MD Discharge Plan Discharge Clinical Impression: Closed head injury Patient Disposition: Still a Patient Instructions: Head Injury (ED) Additional Instructions: Your head CT did not show any new injury. Your neck CT shows degenerative changes at C4-C5 and C5-C6. We have given you your methadone 135mg dose in the department today. If any new or worsening symptoms occur, please return for re-evaluation. Prescriptions: No Action doxycycline monohydrate 100 mg tablet 100 mg PO BID Qty: 20 0RF cephalexin 500 mg capsule 500 mg PO TID Qty: 21 0RF ibuprofen 800 mg tablet 800 mg PO Q8H PRN (Reason: pain) Qty: 20 0RF cyclobenzaprine 10 mg tablet 10 mg PO Q8H Qty: 14 0RF acetaminophen [Tylenol Extra Strength] 500 mg tablet 1,000 mg PO QID PRN (Reason: fever or pain) Qty: 14 0RF famotidine [Pepcid] 20 mg tablet 20 mg PO DAILY PRN (Reason: abdominal discomfort) Qty: 30 0RF doxycycline monohydrate 100 mg tablet 100 mg PO BID 7 Days Qty: 14 0RF ondansetron 4 mg tablet,disintegrating 4 mg PO Q8H PRN (Reason: nausea and vomiting) Qty: 20 0RF cephalexin 500 mg capsule 500 mg PO Q6H 10 Days Qty: 40 0RF sulfamethoxazole-trimethoprim [Bactrim DS] 800-160 mg tablet 1 tab PO BID 10 Days Qty: 20 0RF acetaminophen [Tylenol Extra Strength] 500 mg tablet 1,000 mg PO QID PRN (Reason: fever or pain) Qty: 14 0RF ibuprofen 800 mg tablet 800 mg PO Q8H PRN (Reason: pain) Qty: 14 0RF fluconazole [Diflucan] 150 mg tablet 150 mg PO Q3D Qty: 2 0RF acetaminophen [Tylenol Extra Strength] 500 mg tablet 1,000 mg PO QID PRN (Reason: fever or pain) Qty: 14 0RF cyclobenzaprine 10 mg tablet 10 mg PO Q8H PRN (Reason: Muscle spasm) Qty: 14 0RF doxycycline hyclate 100 mg capsule 100 mg PO BID Qty: 20 0RF cephalexin 500 mg capsule 500 mg PO QID Qty: 40 0RF acetaminophen 500 mg capsule 1,000 mg PO QID PRN (Reason: pain) Qty: 14 0RF methadone [Methadone Intensol] 10 mg/mL Concentrate 135 mg PO DAILY
--- NOTE | 2023-08-02 09:40 | HE.PHANOTE ---
RE: METHADONE PATIENT WAS LAST DOSED WITH RIOS OCAMPO WITH 135 MG LAST DOSES 08/01/23 IN THE MORNING.
[2023-08-02 12:03] VITALS: BP 125/82; PULSE 93; RESP 18; O2SAT 100
[2023-08-02] MEDS: methADONE HCl 20 MG/2 ML ORAL.CONC 135 MG PO (12:24)
[2023-08-02 12:37] LABS: Appearance Urine Clear; Color Urine Yellow; Glucose Urine UA Negative (Negative); Leukocyte Esterase Urine Large (3+) (Negative); Nitrite Urine Negative (Negative); PH 6.5 (5.0-9.0); Specific Gravity - Urine 1.015 (1.005-1.025); UMIC TRIGGER UACC YES; Urine Blood Negative (Negative); Urine Ketones Negative (Negative); Urine Protein Negative (Neg-Trace)
[2023-08-02 12:40] LABS: Bacteria Urine Trace (None Seen); Hyaline Casts Urine 0-2 /LPF (0-2); RBC Urine 0-2 /HPF (0-2); UACC Culture Trigger YES
[2023-08-02 12:42] LABS: Amphetamine Screen Urine Not Detected (Not Detect); Barbiturates, Urine Not Detected (Not Detect); Benzodiazepines Screen Urine Not Detected (Not Detect); Cannabinoid Screen Urine Not Detected (Not Detect); Cocaine Screen Urine POSITIVE (Not Detect); Fentanyl, urine POSITIVE (Not Detect); Opiate Screen Urine POSITIVE (Not Detect); Phencyclidine Screen Urine Not Detected (Not Detect)
[2023-08-02 17:35] VITALS: RESP 14; O2SAT 100
--- NOTE | 2023-08-02 19:23 | PC.NURSE ---
I assumed care of the pt at 1900. Pt is asleep in bed at this time. Pt is requesting detox, needs to speak with recovery team in the morning.
[2023-08-02 22:00] VITALS: RESP 16
[2023-08-02 22:46] VITALS: BP 101/73; PULSE 79; RESP 18; TEMP 36.4; O2SAT 100
[2023-08-03] MEDS: Acetaminophen 325 MG TABLET 650 MG PO (03:05)
--- NOTE | 2023-08-03 03:10 | PC.NURSE ---
Pt woke up, walked to bathroom independently. Pt reported some generalized pain, tylenol verbal ordered from MD and administered per DEC. Pt was moved into ED 16 to clear the hallway.
--- NOTE | 2023-08-03 07:11 | PC.NURSE ---
assumed care of this pt at 0700. pt eating breakfast at the time of assuming care. pt denies SI/HI. denies pain.
[2023-08-03] MEDS: Nitrofurantoin Monohyd/M-Cryst 100 MG CAPSULE PO (07:52)
[2023-08-03] MEDS: methADONE HCl 20 MG/2 ML ORAL.CONC 135 MG PO (07:52)
--- NOTE | 2023-08-03 07:58 | PC.NURSE ---
meds given as documented. Methadone 135 mg given as ordered. pt requests detox. will follow-up with Care Team and golf coach.
--- NOTE | 2023-08-03 08:54 | MHC.RECOVRN ---
Met with pt in ED16 after pt expressed desire for ATS. Pt had presented to ED for methadone dose and subsequently requested ATS bedsearch. Pt layin in bed, asleep, wakes to voice but keeps eyes closed throughout conversation. Appears comfortable. Pt reports using heroin/fentanyl IV, 2 bundles daily; cocaine, IV, as much as I can get ; alcohol, 2 pints daily. Pt reports last substance use yesterday. Pt reports last ATS admission in May at [facility]. Pt educated on difficulty of securing ATS bed and wishes to proceed with bedsearch. Denies questions or concerns at this time.
--- NOTE | 2023-08-03 09:12 | MHC.RECOVRN ---
Referral sent to [facility], currently under review, awaiting update.
--- NOTE | 2023-08-03 10:13 | MHC.RECOVRN ---
Accepted to [facility] pending phone screen.
--- NOTE | 2023-08-03 10:51 | MHC.RECOVRN ---
Transported to [facility] via [employer].
--- NOTE | 2023-08-03 11:04 | PC.NURSE ---
pt cleared for discharge. pt accepted to detox, discharged via uber. discharge papers reviewed with pt. pt escorted to uber in front of ed.
== END 2023-08-03 11:07 ==
PROVIDERS: Physician Assistant Medical; Emergency Provider Student in an Organized Health Care Education/Training Program
DX: S09.90XA Unspecified injury of head, initial encounter (principal); R51.9 Headache, unspecified; W01.10XA Fall on same level from slipping, tripping and stumbling with subsequent striking against unspecified object, initial encounter; Y93.9 Activity, unspecified; Y92.9 Unspecified place or not applicable; Y99.9 Unspecified external cause status; Z79.899 Other long term (current) drug therapy
CPT/HCPCS: 70450; 72125; 80307; 81001; 87086; 99284

== ENCOUNTER 2023-12-17 06:52 | Emergency (ER) | payer OTHER, SELFPAY ==
[2023-12-17 07:12] VITALS: BP 100/61; BP 121/71; PULSE 67; PULSE 70; RESP 16; TEMP 36.3; O2SAT 100; O2SAT 98; BMI 22.8
[2023-12-17 08:00] LABS: MANUAL DIFF FLAG NO
[2023-12-17 08:06] LABS: Prothrombin Time 12.7 SEC (11.1-13.3)
[2023-12-17 08:08] LABS: Basophils Percent Auto 0.3 % (0-2); Eosinophils Absolute Auto 0.1 X10*3/uL (0.0-0.4); Eosinophils Percent Auto 1.2 % (0-4); Hematocrit 34.1 % (37.0-47.0); Hemoglobin 11.4 g/dl (12.0-16.0); Imm Gran Abs Auto 0.03 X10*3/uL (0.00-0.03); Imm Gran Pct Auto 0.4 % (0.0-0.4); Lymphocytes Absolute Auto 1.6 X10*3/uL (1.2-4.9); Lymphocytes Percent Auto 21.3 % (20-40); Mean Corpuscular HGB Conc 33.4 g/dl (31.0-35.0); Mean Corpuscular Hemoglobin 28.8 pg (27.0-33.0); Mean Corpuscular Volume 86.1 fL (80.0-98.0); Mean Platelet Volume 9.6 fL (9.4-12.3); Monocytes Absolute Auto 0.7 X10*3/uL (0.1-1.2); Monocytes Percent Auto 8.9 % (2-11); Neutrophils Absolute Auto 4.9 x10*3/uL (2.0-8.3); Neutrophils Percent Auto 67.9 % (45-73); Platelet Count 237 X10*3/uL (160-400); Red Blood Count 3.96 X10*6/uL (4.20-5.50); Red Cell Distribution Width 12.9 % (11.0-16.0); White Blood Count 7.3 X10*3/uL (4.8-10.8)
[2023-12-17 08:17] LABS: Alanine Aminotransferase 30 U/L (0-31); Albumin Level 3.7 g/dL (3.5-5.0); Alkaline Phosphatase 71 U/L (39-117); Anion Gap 14 (12-20); Aspartate Amino Transferase 23 U/L (5-31); Bilirubin Direct 0.4 mg/dL (0.0-0.5); Bilirubin Total 0.9 mg/dL (0.0-1.0); Blood Urea Nitrogen 8 mg/dL (9-16); Calcium 9.5 mg/dL (8.4-10.2); Carbon Dioxide 27 mmol/L (22-29); Chloride 101 mmol/L (96-108); Creatinine Clr Calc Pharmacy 120.4; Estimated Glomerular Filt Rate > 60; Glucose Random 99 mg/dL (60-115); Magnesium 1.9 mg/dL (1.6-2.6); Sodium 139 mmol/L (135-145); Total Protein 7.6 g/dL (6.5-8.0)
[2023-12-17 08:22] LABS: Ethanol < 10 mg/dL
[2023-12-17 08:24] LABS: HCG Quantitative < 2 mIU/mL
[2023-12-17] MEDS: Potassium Chloride ER 10 MEQ TABLET.ER 40 MEQ PO (08:49)
--- NOTE | 2023-12-17 08:50 | PC.NURSE ---
patient sleeping, woke to verbal stimulus, pt lungs diminished/clear, vss, pt requesting motor coach chauffeur states her last use was last night, pt medicated with k per order, call lerma within reach, will continue to monitor
[2023-12-17 10:16] VITALS: BP 107/61; PULSE 82; RESP 12; TEMP 37.2; O2SAT 96
--- NOTE | 2023-12-17 10:20 | HO.ADDICTCON ---
History of Present Illness Date of Service: 12/17/2023 Chief Complaint: sick person Reason for Consult: OUD Sources of Information: patient interviewed (minimal ) and chart reviewed HPI Narrative: Patient is a 43 year old female currently in ED requesting ATS admission for OUD. This radio news writer and marketing support coordinator met with patient who was in 22H, laying on stretcher asleep. Woke to voice and able to answer minimal questions, however would fall right back to sleep. She confirms that she would like to go to ATS and also asks for her methadone, which she reports to be 180mg. Patient did not appear to be experiencing any withdrawal signs at time of assessment. marketing support coordinator called [facility], and her last dose was verified as being 135mg July. She has not been seen there since. T/w called numerous ATS facilities --no availability at this time Plan to restart methadone and refer to OTP. Review of Systems Review of Systems Yes Unobtainable due to mental status Diagnostics Vital Signs (24Hr): Vital Signs - 24 hr 12/17/23 07:12 12/17/23 10:16 Temperature 97.3 F 98.9 F Pulse Rate 70 82 Respiratory Rate 16 12 Blood Pressure 100/61 107/61 Pulse Oximetry 100 96 Oxygen Delivery Method Room Air Room Air BMI result Body Mass Index 22.8 Labs 12/17/23 07:55 12/17/23 07:55 Labs: Laboratory Results - last 48 hr 12/17/23 07:55 WBC 7.3 RBC 3.96 L Hgb 11.4 L Hct 34.1 L MCV 86.1 MCH 28.8 MCHC 33.4 RDW 12.9 Plt Count 237 MPV 9.6 Immature Gran % (Auto) 0.4 Neut % (Auto) 67.9 Lymph % (Auto) 21.3 Creek % (Auto) 8.9 Eos % (Auto) 1.2 Baso % (Auto) 0.3 Lymph # (Auto) 1.6 [place] # (Auto) 0.7 Eos # (Auto) 0.1 Baso # (Auto) 0.0 Abs Immat Gran (auto) 0.03 Absolute Neuts (auto) 4.9 Absolute Nucleated RBC 0.000 Nucleated RBC % (auto) 0.0 PT 12.7 INR 1.0 Sodium 139 Potassium 3.0 L Chloride 101 Carbon Dioxide 27 Anion Gap 14 BUN 8 L Creatinine 0.62 Estim Creat Clear Calc 120.4 Estimated GFR > 60 Random Glucose 99 Calcium 9.5 Magnesium 1.9 Total Bilirubin 0.9 Direct Bilirubin 0.4 AST 23 ALT 30 Alkaline Phosphatase 71 Total Protein 7.6 Albumin 3.7 Beta HCG, Quant < 2 Ethyl Alcohol < 10 Mental Status Exam Mental Status Exam Patient Appearance: Disheveled and Unkempt Level of Consciousness: Drowsy Patient Behavior: Asleep Medications Allergies Allergies Allergy/AdvReac Type Severity Reaction Status Date / Time No Known Allergies Allergy Verified 01/28/23 13:58 Assessment & Plan Assessment & Plan (1) Opioid use disorder: Status: Inactive Code(s): F11.90 - Opioid use, unspecified, uncomplicated Assessment and Plan: no ATS beds in this area methadone 20mg X1 RN made aware that patient had left ED prior to follow up or disposition Total time managing care of this patient today __30__ minutes. PMFSH Past Medical History Medical History Active substance abuse Cellulitis Social History Social History Unable to assess alcohol history related to: Refusing to respond Alcohol intake: current Alcohol intake frequency: 3 or more drinks per day Alcohol type: hard liquor Patient Tobacco Use Status: Tobacco use Unknown Substance Use Type: Heroin and Opiates Advance Directives: No Advance Directives Information Provided: No
[2023-12-17] MEDS: methADONE HCl 20 MG/2 ML ORAL.CONC PO (11:10)
--- NOTE | 2023-12-17 11:18 | PC.NURSE ---
pt medicated w/ 20mg methadone per DEC. after administration pt stated that her dose is usually higher, and that she goes to the [facility] clinic, sts last dose was thursday. Primary RN notified via [place].
--- NOTE | 2023-12-17 14:36 | ED_ITS ---
HPI - General Adult General Chief complaint: ETOH/Substance Use Stated complaint: sick person Time Seen by Provider: 12/17/23 07:11 History of Present Illness HPI narrative: The patient is a 43-year-old female with a history of substance use disorder. She has in a methadone program. She came to the emergency room complaining that she was feeling very cold because she was sleeping outside last night. She also complained that she had not had methadone for 4 days. She said that she would used heroin and cocaine last night. No fever, sweats, chills. No suicidal thoughts. No homicidality Related Data Home Medications Medication Instructions Recorded Confirmed methadone 10 mg/mL oral 135 mg PO DAILY 05/30/23 05/30/23 concentrate (Methadone Intensol) Previous Rx's Medication Instructions Recorded cephalexin 500 mg capsule 500 mg PO TID #21 caps 11/16/21 doxycycline monohydrate 100 mg 100 mg PO BID #20 tabs 11/16/21 tablet ibuprofen 800 mg tablet 800 mg PO Q8H PRN pain #20 tabs 11/16/21 doxycycline monohydrate 100 mg 100 mg PO BID 7 days #14 tabs 11/25/21 tablet famotidine 20 mg tablet (Pepcid) 20 mg PO DAILY PRN abdominal 11/25/21 discomfort #30 tabs ondansetron 4 mg disintegrating 4 mg PO Q8H PRN nausea and 11/25/21 tablet vomiting #20 tabs acetaminophen 500 mg tablet 1,000 mg (2 x 500 mg) PO QID PRN 11/27/21 (Tylenol Extra Strength) fever or pain #14 tabs cephalexin 500 mg capsule 500 mg PO Q6H cellulitis 10 days 11/27/21 #40 caps fluconazole 150 mg tablet 150 mg PO Q3D 2 doses #2 tabs 11/27/21 (Diflucan) ibuprofen 800 mg tablet 800 mg PO Q8H PRN pain #14 tabs 11/27/21 sulfamethoxazole 800 1 tab PO BID 10 days #20 tabs 11/27/21 mg-trimethoprim 160 mg tablet (Bactrim DS) acetaminophen 500 mg tablet 1,000 mg (2 x 500 mg) PO QID PRN 01/20/22 (Tylenol Extra Strength) fever or pain #14 tabs cyclobenzaprine 10 mg tablet 10 mg PO Q8H PRN Muscle spasm #14 01/20/22 tabs acetaminophen 500 mg tablet 1,000 mg (2 x 500 mg) PO QID PRN 12/16/22 (Tylenol Extra Strength) fever or pain #14 tabs cyclobenzaprine 10 mg tablet 10 mg PO Q8H #14 tabs 12/16/22 acetaminophen 500 mg capsule 1,000 mg (2 x 500 mg) PO QID PRN 01/28/23 pain #14 caps cephalexin 500 mg capsule 500 mg PO QID #40 caps 01/28/23 doxycycline hyclate 100 mg capsule 100 mg PO BID #20 caps 01/28/23 nitrofurantoin 100 mg PO Q12H 7 days #14 caps 08/03/23 monohydrate/macrocrystals 100 mg capsule (Macrobid) Allergies Allergy/AdvReac Type Severity Reaction Status Date / Time No Known Allergies Allergy Verified 01/28/23 13:58 Review of Systems 2 Review of Systems: Yes all other systems are reviewed and are negative [facility] Past Medical History Medical History Active substance abuse Cellulitis Social History Social History Unable to assess alcohol history related to: Refusing to respond Alcohol intake: current Alcohol intake frequency: 3 or more drinks per day Alcohol type: hard liquor Patient Tobacco Use Status: Tobacco use Unknown Substance Use Type: Heroin and Opiates Advance Directives: No Advance Directives Information Provided: No Physical Exam ED Vital Signs: Vital Signs - 24 hr 12/17/23 07:12 12/17/23 10:16 Temperature 97.3 F 98.9 F Pulse Rate 70 82 Respiratory Rate 16 12 Blood Pressure 100/61 107/61 Pulse Oximetry 100 96 Oxygen Delivery Method Room Air Room Air BMI result Body Mass Index 22.8 Const Other: Patient is an unkempt and disheveled 43-year-old. She looks older than her age. She seemed drowsy but responded to verbal stimuli. She looks somewhat chronically unwell but did not seem in any acute distress HENMT Other: Face was symmetrical. Mucous membranes moist Eyes Other: Pupils are round equal, conjunctivae clear Neck Other: No nuchal rigidity. No adenopathy Resp Effort & Inspection: normal respiratory effort Auscultation: clear to auscultation bilaterally Cardio Rate: regular rate Rhythm: regular rhythm Heart sounds: S1 normal heart sound present and S2 normal heart sound present GI Other: Abdomen is soft and nontender Skin Other: Skin is pale and dry Neuro Other: The patient was drowsy but arousable. Face was symmetrical. Speech not slurred. She was able to walk without difficulty Extrem Other: No peripheral edema Medications Administered Discontinued Medications Generic Name Dose Route Start Last Admin Trade Name Devyn PRN Reason Stop Dose Admin Methadone HCl 20 mg 12/17/23 10:11 12/17/23 11:10 Methadone Hcl 20 Mg/2 Ml Oral.Conc PO 12/17/23 10:12 20 mg ONCE ONE Administration Potassium Chloride 40 meq 12/17/23 08:27 12/17/23 08:49 Potassium Chloride Er 10 Meq Tablet.Er PO 12/17/23 08:28 40 meq ONCE ONE Administration Medical Decision Making Medical Decision Making [facility] Narrative: The patient comes to the emergency room complaining of feeling cold. She seems to present primarily for reasons related to her substance use disorder and her homelessness. She does not seem obviously acutely ill. She is not suicidal. Basic labs were unremarkable aside from a mild hypokalemia of 3.0. The patient was given 40 mEq of oral potassium for potassium replacement. The patient was interested in talking to her recovery counselor and a consult to the recovery team was placed. The patient was seen by the recovery team. The recovery team was able to determine that the patient had last received methadone through the [facility] several months ago on August 02, 2023. At that time her dose was 180 mg per day. The patient has not been seen at the methadone clinic since the end of July. Every team recommended a dose of 20 mg of oral methadone which was given. After receiving the dose of methadone the patient asked about the outside temperature and was told that it was fairly warm. She then apparently walked out of the emergency prior to any formal discharge plan. Lab Data 12/17/23 07:55 12/17/23 07:55 Labs: Lab Results 12/17/23 Range/Units 07:55 WBC 7.3 (4.8-10.8) X10*3/uL RBC 3.96 L (4.20-5.50) X10*6/uL Hgb 11.4 L (12.0-16.0) g/dl Hct 34.1 L (37.0-47.0) % MCV 86.1 (80.0-98.0) fL MCH 28.8 (27.0-33.0) pg MCHC 33.4 (31.0-35.0) g/dl RDW 12.9 (11.0-16.0) % Plt Count 237 (160-400) X10*3/uL MPV 9.6 (9.4-12.3) fL Immature Gran % (Auto) 0.4 (0.0-0.4) % Neut % (Auto) 67.9 (45-73) % Lymph % (Auto) 21.3 (20-40) % [place] % (Auto) 8.9 (2-11) % Eos % (Auto) 1.2 (0-4) % Baso % (Auto) 0.3 (0-2) % Lymph # (Auto) 1.6 (1.2-4.9) X10*3/uL [place] # (Auto) 0.7 (0.1-1.2) X10*3/uL Eos # (Auto) 0.1 (0.0-0.4) X10*3/uL Baso # (Auto) 0.0 (0.0-0.2) X10*3/uL Abs Immat Gran (auto) 0.03 (0.00-0.03) X10*3/uL Absolute Neuts (auto) 4.9 (2.0-8.3) x10*3/uL Absolute Nucleated RBC 0.000 (0.0-0.012) X10*3/uL Nucleated RBC % (auto) 0.0 (0.0-0.2) /100WBC PT 12.7 (11.1-13.3) SEC INR 1.0 (0.9-1.1) Sodium 139 (135-145) mmol/L Potassium 3.0 L (3.3-5.1) mmol/L Chloride 101 (96-108) mmol/L Carbon Dioxide 27 (22-29) mmol/L Anion Gap 14 (12-20) BUN 8 L (9-16) mg/dL Creatinine 0.62 (0.5-1.4) mg/dL Estim Creat Clear Calc 120.4 Estimated GFR > 60 Random Glucose 99 (60-115) mg/dL Calcium 9.5 (8.4-10.2) mg/dL Magnesium 1.9 (1.6-2.6) mg/dL Total Bilirubin 0.9 (0.0-1.0) mg/dL Direct Bilirubin 0.4 (0.0-0.5) mg/dL AST 23 (5-31) U/L ALT 30 (0-31) U/L Alkaline Phosphatase 71 (39-117) U/L Total Protein 7.6 (6.5-8.0) g/dL Albumin 3.7 (3.5-5.0) g/dL Beta HCG, Quant < 2 mIU/mL Ethyl Alcohol < 10 mg/dL Discharge Plan Discharge Clinical Impression: Substance use disorder Patient Disposition: Elopement Prescriptions: No Action doxycycline monohydrate 100 mg tablet 100 mg PO BID Qty: 20 0RF cephalexin 500 mg capsule 500 mg PO TID Qty: 21 0RF ibuprofen 800 mg tablet 800 mg PO Q8H PRN (Reason: pain) Qty: 20 0RF cyclobenzaprine 10 mg tablet 10 mg PO Q8H Qty: 14 0RF acetaminophen [Tylenol Extra Strength] 500 mg tablet 1,000 mg PO QID PRN (Reason: fever or pain) Qty: 14 0RF famotidine [Pepcid] 20 mg tablet 20 mg PO DAILY PRN (Reason: abdominal discomfort) Qty: 30 0RF doxycycline monohydrate 100 mg tablet 100 mg PO BID 7 Days Qty: 14 0RF ondansetron 4 mg tablet,disintegrating 4 mg PO Q8H PRN (Reason: nausea and vomiting) Qty: 20 0RF cephalexin 500 mg capsule 500 mg PO Q6H 10 Days Qty: 40 0RF sulfamethoxazole-trimethoprim [Bactrim DS] 800-160 mg tablet 1 tab PO BID 10 Days Qty: 20 0RF acetaminophen [Tylenol Extra Strength] 500 mg tablet 1,000 mg PO QID PRN (Reason: fever or pain) Qty: 14 0RF ibuprofen 800 mg tablet 800 mg PO Q8H PRN (Reason: pain) Qty: 14 0RF fluconazole [Diflucan] 150 mg tablet 150 mg PO Q3D Qty: 2 0RF acetaminophen [Tylenol Extra Strength] 500 mg tablet 1,000 mg PO QID PRN (Reason: fever or pain) Qty: 14 0RF cyclobenzaprine 10 mg tablet 10 mg PO Q8H PRN (Reason: Muscle spasm) Qty: 14 0RF doxycycline hyclate 100 mg capsule 100 mg PO BID Qty: 20 0RF cephalexin 500 mg capsule 500 mg PO QID Qty: 40 0RF acetaminophen 500 mg capsule 1,000 mg PO QID PRN (Reason: pain) Qty: 14 0RF methadone [Methadone Intensol] 10 mg/mL Concentrate 135 mg PO DAILY nitrofurantoin monohyd/m-cryst [Macrobid] 100 mg capsule 100 mg PO Q12H 7 Days Qty: 14 0RF Rx Instructions: must administer with a meal/food Interventions: ED Discharge Assessment Last Done: 12/17/23 11:34 Discharge Date/Time: 12/17/23 11:35
== END 2023-12-17 11:35 | disposition left against medical advice (07) ==
LOC: HO.ED 11:35
PROVIDERS: Emergency Provider Emergency Medicine
DX: F11.19 Opioid abuse with unspecified opioid-induced disorder (principal); Z59.00 Homelessness unspecified; Z79.899 Other long term (current) drug therapy
CPT/HCPCS: 36415; 80048; 80076; 80307; 83735; 84702; 85025; 85610; 99283

== ENCOUNTER → 2023-12-17 11:35 | Outpatient (BNV) | payer OTHER, SELFPAY | PROVIDERS: Emergency Provider Emergency Medicine; Visit Provider Nurse Practitioner Psychiatric/Mental Health | DX: F11.90 Opioid use, unspecified, uncomplicated (principal) | CPT/HCPCS: 99281; G2213 ==